=== PATIENT | female | born 1955 | race Two or more races ===

== ENCOUNTER → 2021-08-15 12:36 | Outpatient (CLI) | payer MEDICARE, MEDICAID, SELFPAY | PROVIDERS: Visit Provider Ophthalmology | DX: Z01.812 Encounter for preprocedural laboratory examination (principal); Z11.52 Encounter for screening for COVID-19 | CPT/HCPCS: C9803; U0003; U0005 ==

== ENCOUNTER 2021-08-16 10:43 | Day surgery (SDC) | payer MEDICARE, MEDICAID, SELFPAY ==
[2021-08-15 11:42] VITALS: BMI 53.1
[2021-08-16] VITALS (8 sets, daily range): BP systolic 142–204; BP diastolic 77–93; PULSE 55–88; RESP 16–18; TEMP 36.3–36.6; O2SAT 100
[2022-06-01 10:55] LABS: POC Glucose,Bedside 85 (70-110)
== END 2021-08-16 13:26 | disposition home or self-care (01) ==
LOC: OR 10:49
PROVIDERS: PCP Family Medicine; Visit Provider Ophthalmology
DX: H25.819 Combined forms of age-related cataract, unspecified eye (principal); H25.89 Other age-related cataract; H02.834 Dermatochalasis of left upper eyelid; H02.831 Dermatochalasis of right upper eyelid; E11.9 Type 2 diabetes mellitus without complications; I10 Essential (primary) hypertension; Z88.1 Allergy status to other antibiotic agents; Z88.5 Allergy status to narcotic agent; Z88.9 Allergy status to unspecified drugs, medicaments and biological substances
CPT/HCPCS: 66982; 82962; V2632

== ENCOUNTER → 2021-09-12 13:02 | Outpatient (CLI) | payer MEDICARE, MEDICAID, SELFPAY | PROVIDERS: Visit Provider Ophthalmology | DX: Z01.812 Encounter for preprocedural laboratory examination (principal); Z11.52 Encounter for screening for COVID-19 | CPT/HCPCS: C9803; U0003; U0005 ==

== ENCOUNTER 2021-09-13 07:56 | Day surgery (SDC) | payer MEDICARE, MEDICAID, SELFPAY ==
[2021-09-07 14:26] VITALS: BMI 55.7
[2021-09-13] VITALS (8 sets, daily range): BP systolic 119–188; BP diastolic 60–86; PULSE 67–78; RESP 18; TEMP 36.2–36.3; O2SAT 99–100
[2022-06-01 10:56] LABS: POC Glucose,Bedside 89 (70-110)
== END 2021-09-13 10:00 | disposition home or self-care (01) ==
LOC: OR 07:57
PROVIDERS: PCP Family Medicine; Visit Provider Ophthalmology
DX: E11.9 Type 2 diabetes mellitus without complications; H02.831 Dermatochalasis of right upper eyelid; H02.834 Dermatochalasis of left upper eyelid; F41.9 Anxiety disorder, unspecified; M19.90 Unspecified osteoarthritis, unspecified site; J45.909 Unspecified asthma, uncomplicated; F32.A Depression, unspecified; Z82.3 Family history of stroke; Z80.9 Family history of malignant neoplasm, unspecified; Z83.3 Family history of diabetes mellitus; Z82.49 Family history of ischemic heart disease and other diseases of the circulatory system; H25.812 Combined forms of age-related cataract, left eye
CPT/HCPCS: 66984; 82962; V2632

== ENCOUNTER 2022-07-08 05:43 | Emergency (ER) | payer MEDICARE, MEDICAID, SELFPAY ==
[2022-07-08] VITALS (9 sets, daily range): BP systolic 143–178; BP diastolic 40–128; PULSE 75–86; RESP 15–22; TEMP 36.9–37.2; O2SAT 97–100; BMI 42.5
--- NOTE | 2022-07-08 05:42 | ECG_ITS ---
APPROVED REPORT Exam: Resting ECG HR:85 bpm ECG Measurements Heart Rate 85 AXES WI 148 P -38 QRSd 92 QRS 25 QT 390 T 96 QTc 432 Conclusion SINUS RHYTHM NONSPECIFIC ST & T-WAVE ABNORMALITY ABNORMAL ECG UNCONFIRMED REPORT Electronically signed by : Clifford Hernandez MD 07/09/2022 08:53:56
--- NOTE | 2022-07-08 05:59 | HMH.EDGENADL ---
Discharge Plan Disposition Patient Disposition: Home, Self-Care Condition: Good Prescriptions Prescriptions: No Action atorvastatin 40 MG tablet 40 mg PO HS primidone 50 MG tablet 150 mg PO BID diclofenac sodium 100 GM gel 100 gm TP QID ofloxacin 5 ML bottle 5 ml OP QID hydrochlorothiazide 50 MG tablet 50 mg PO BID ciprofloxacin HCl 250 MG tablet 250 mg PO BID omeprazole 40 MG capsule,delayed release(DR/EC) 40 mg PO BID propranolol 10 MG tablet 10 mg PO DAILY dicyclomine 20 MG tablet 20 mg PO TID mupirocin calcium 15 GM cream 1 applicatio TP BID mirabegron 50 MG tablet extended release 24 hr 50 mg PO DAILY fluticasone furoate 200 MCG blister with device 200 mcg IH DAILY dulaglutide 0.75 MG/0.5 ML pen injector 0.75 mg SQ WEEKLY Referrals Follow up/Referrals: Provider,Referral, MD [Primary Care Provider] - See instructions Activity Restrictions/Add. Instructions Additional Instructions/Restrictions: Take Aleve twice a day for pain. Additional instructions for ABDOMINAL PAIN: See your physician as soon as possible for further evaluation. Return immediately if worsening abdominal pain, vomiting, shortness of breath, fever, vomiting of blood or abdominal distention. Clinical Impressions Clinical Impression: Abdominal pain, GERD (gastroesophageal reflux disease), Epiploic appendagitis Instructions Patient Instructions: DI for Acute Abdominal Pain Discharge ED Provider: Lane Jimenez General Adult HPI <Lane Jimenez DO - Last Filed: 07/08/22 07:57> General Chief complaint: Abdominal Pain Stated complaint: Indigestion Time Seen by Provider: 07/08/22 05:45 Mode of Arrival: EMS Source of Information: Patient and EMS Limitations: No Limitations History of Present Illness HPI narrative: 67yo F presents to the emergency department via EMS secondary to abdominal pain and belching. Patient reports she ate spaghetti and chili for dinner last night. Reports GI cocktail usually improves her symptoms. Patient reports feeling well prior to eating dinner last night. Related Data Home Medications Medication Instructions Recorded Confirmed atorvastatin 40 mg tablet 40 mg PO HS Cholesterol 08/16/21 07/08/22 ciprofloxacin HCl 250 mg tablet 250 mg PO BID Infection 08/16/21 07/08/22 diclofenac sodium 3 % topical gel 100 gm TP QID Pain 08/16/21 07/08/22 dicyclomine 20 mg tablet 20 mg PO TID IBS 08/16/21 07/08/22 dulaglutide 0.75 mg/0.5 mL 0.75 mg SQ WEEKLY Diabetes 08/16/21 07/08/22 subcutaneous pen injector fluticasone furoate 200 200 mcg IH DAILY Asthma 08/16/21 07/08/22 mcg/actuation blister powder for inhalation hydrochlorothiazide 50 mg tablet 50 mg PO BID Fluid 08/16/21 07/08/22 mirabegron 50 mg tablet,extended 50 mg PO DAILY bladder spasms 08/16/21 07/08/22 release 24 hr mupirocin calcium 2 % topical cream 1 applicatio TP BID Infection 08/16/21 07/08/22 ofloxacin 0.3 % eye drops 5 ml OP QID vision 08/16/21 07/08/22 omeprazole 40 mg capsule,delayed 40 mg PO BID GERD 08/16/21 07/08/22 release primidone 50 mg tablet 150 mg PO BID Infection 08/16/21 07/08/22 propranolol 10 mg tablet 10 mg PO DAILY blood pressure 08/16/21 07/08/22 Allergies Allergy/AdvReac Type Severity Reaction Status Date / Time silver Allergy Mild Verified 09/13/21 08:09 [From Tegaderm AG Mesh] adhesive tape Allergy Rash Verified 09/13/21 08:34 AMOXICILLIN Allergy Unknown NA-NAUSEA Uncoded 08/21/17 15:37 From AUGMENTIN Allergy Unknown NA-NAUSEA Uncoded 08/21/17 15:37 MORPHINE Allergy Unknown NA-NAUSEA Uncoded 08/21/17 15:37 [facility] <Lane Jimenez DO - Last Filed: 07/08/22 07:57> [facility] Social History Smoking Status: Never smoker alcohol intake: never current occupational status: retired Travel in the last 8 weeks: None household members: family housing: house caffeine:
[2022-07-08 06:26] LABS: Basophils # 0.1 K/mm3 (0-0.2); Basophils % 0.8 % (0.1-2.0); Eosinophils # 0.3 K/mm3 (0.0-0.4); Eosinophils % 2.3 % (0.1-12.0); Hematocrit 34.6 % (37.0-47.0); Lymphocytes # 1.9 K/mm3 (0.7-4.5); Lymphocytes % 14.1 % (10-50); Mean Corpuscular HGB Conc 31.8 g/dL (31.8-35.4); Mean Corpuscular Hemoglobin 29.7 pg (27.0-31.2); Mean Corpuscular Volume 93.4 fl (81-99); Mean Platelet Volume 7.5 fl (7.4-10.4); Monocytes # 0.9 K/mm3 (0.1-1.0); Neutrophils % 75.8 % (37.0-80.0); Platelet Count 483 K/mm3 (142-424); Red Blood Count 3.71 M/mm3 (4.20-5.40); Red Cell Distribution Width 13.4 % (11.5-17.5); White Blood Count 13.2 K/mm3 (4.8-10.8)
[2022-07-08 06:34] LABS: Lipase 39 U/L (23-300)
[2022-07-08 06:36] LABS: Alanine Aminotransferase 15 U/L (12-78); Albumin Level 3.9 g/dl (3.5-5.0); Albumin/Globulin Ratio 0.9 (1.1-1.8); Alkaline Phosphatase 131 U/L (38-126); Anion Gap 16.5 mEq/L (5-15); Aspartate Amino Transferase 29 U/L (14-36); Bilirubin,Total 0.6 mg/dl (0.2-1.3); Blood Urea Nitrogen 25 mg/dl (7-17); Calcium 9.4 mg/dl (8.4-10.2); Carbon Dioxide 26 mmol/L (22.0-30.0); Chloride 94 mmol/L (98-107); Creatinine Clearance Estimated 33 mL/min (50-200); Estimated Glomerular Filt Rate 38 ml/min (>60); GFR (African American) 46 ML/MIN (>60); Globulin 4.4 g/dL (1.3-3.2); Glucose 123 mg/dl (74-100); Potassium 4.5 mmoL/L (3.5-5.1); Sodium 132 mmol/L (136-145); Total Protein,Serum 8.3 g/dl (6.3-8.2)
--- NOTE | 2022-07-08 06:42 | CT_ITS ---
PROCEDURE INFORMATION: Exam: CT Abdomen And Pelvis Without Contrast Exam date and time: 07/08/2022 6:48 AM Age: 67 years old Clinical indication: Nausea and vomiting; Additional info: Pain, nausea/vomiting TECHNIQUE: Imaging protocol: Computed tomography of the abdomen and pelvis without contrast. Radiation optimization: All CT scans at this facility use at least one of these dose optimization techniques: automated exposure control; mA and/or kV adjustment per patient size (includes targeted exams where dose is matched to clinical indication); or iterative reconstruction. COMPARISON: No relevant prior studies available. FINDINGS: Diaphragm: Moderate hiatal hernia. Liver: Normal. No mass. Gallbladder and bile ducts: Cholecystectomy. Pancreas: Normal. No ductal dilation. Spleen: Normal. No splenomegaly. Adrenal glands: Normal. No mass. Kidneys and ureters: Normal. No hydronephrosis. Stomach and bowel: Colonic diverticulosis without evidence of diverticulitis. No bowel obstruction. Small rounded area of inflammation adjacent to the sigmoid colon may reflect a small area of epiploic appendagitis. Appendix: No evidence of appendicitis. Intraperitoneal space: Unremarkable. No free air. No significant fluid collection. Vasculature: Mild burden of atherosclerotic plaque in the abdominal aorta and branch vessels. No aneurysm. Lymph nodes: Unremarkable. No enlarged lymph nodes. Urinary bladder: Single locule of gas in the bladder may relate to recent instrumentation. Reproductive: Unremarkable as visualized. Bones/joints: Unremarkable. No acute fracture. Soft tissues: Unremarkable. IMPRESSION: There may be a small focus of epiploic appendagitis adjacent to the sigmoid colon. Otherwise, no acute findings.
[2022-07-08 06:47] LABS: Troponin I < 0.01 ng/ml (0.00-0.034)
--- NOTE | 2022-07-08 08:50 | PC.NURSE ---
called radiology for update ct scan report. Tech will fu with radiologist
--- NOTE | 2022-07-08 09:26 | PC.NURSE ---
at the bedside speaking to pt
--- NOTE | 2022-07-08 09:27 | PC.NURSE ---
dr. torres at bedside
== END 2022-07-08 09:58 | disposition home or self-care (01) ==
PROVIDERS: Emergency Provider Family Medicine
DX: K63.89 Other specified diseases of intestine (principal); K21.9 Gastro-esophageal reflux disease without esophagitis; Z79.899 Other long term (current) drug therapy; Z88.1 Allergy status to other antibiotic agents; Z88.5 Allergy status to narcotic agent; Z88.9 Allergy status to unspecified drugs, medicaments and biological substances
CPT/HCPCS: 74176; 80053; 83690; 84484; 85025; 93005; 99284

== ENCOUNTER 2022-08-28 12:59 | Emergency (ER) | payer MEDICARE, MEDICAID, SELFPAY ==
[2022-08-28] VITALS (12 sets, daily range): BP systolic 129–172; BP diastolic 36–81; PULSE 77–89; RESP 18–20; TEMP 36.8–37.1; O2SAT 98–100; BMI 50.8
--- NOTE | 2022-08-28 13:45 | CT_ITS ---
PROCEDURE INFORMATION: Exam: CTA Head With Contrast, Arteriography Exam date and time: 08/28/2022 3:30 PM Age: 67 years old Clinical indication: Stroke-like symptoms; Lt upper extremity weakness; Additional info: Left arm numbness TECHNIQUE: Imaging protocol: Computed tomographic angiography of the head with contrast. Exam focused on the arteries. 3D rendering (Not supervised by radiologist): MIP and/or 3D reconstructed images were created by the technologist. Radiation optimization: All CT scans at this facility use at least one of these dose optimization techniques: automated exposure control; mA and/or kV adjustment per patient size (includes targeted exams where dose is matched to clinical indication); or iterative reconstruction. Contrast material: ISOVUE 370; Contrast volume: 100 ml; Contrast route: INTRAVENOUS (IV); COMPARISON: CT HEAD/BRAIN WO CON 08/28/2022 2:30 PM FINDINGS: ANTERIOR CIRCULATION: Right internal carotid artery: Intracranial segment is patent with no significant stenosis. No aneurysm. Right middle cerebral artery: No occlusion or significant stenosis. No aneurysm. Right anterior cerebral artery: No occlusion or significant stenosis. No aneurysm. Left internal carotid artery: Intracranial segment is patent with no significant stenosis. No aneurysm. Left middle cerebral artery: No occlusion or significant stenosis. No aneurysm. Left anterior cerebral artery: No occlusion or significant stenosis. No aneurysm. POSTERIOR CIRCULATION: Right vertebral artery: No occlusion or significant stenosis. No aneurysm. Left vertebral artery: No occlusion or significant stenosis. No aneurysm. Basilar artery: No occlusion or significant stenosis. No aneurysm. Right posterior cerebral artery: Severe focal stenosis involves the proximal P2 segment of the right posterior cerebral artery. Left posterior cerebral artery: Severe focal stenosis involves the P1/P2 junction of the left posterior cerebral artery Brain: No definite mass, mass effect, or midline shift. Cerebral ventricles: No ventriculomegaly. Bones/joints: Unremarkable. No acute fracture. Soft tissues: Unremarkable. 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
--- NOTE | 2022-08-28 13:45 | CT_ITS ---
PROCEDURE INFORMATION: Exam: CT Head Without Contrast Exam date and time: 08/28/2022 2:30 PM Age: 67 years old Clinical indication: Stroke-like symptoms; Lt upper extremity weakness; Additional info: Left arm numbness-- will do angio once labs and iv are done TECHNIQUE: Imaging protocol: Computed tomography of the head without contrast. Radiation optimization: All CT scans at this facility use at least one of these dose optimization techniques: automated exposure control; mA and/or kV adjustment per patient size (includes targeted exams where dose is matched to clinical indication); or iterative reconstruction. Other technique: STROKE PROTOCOL was implemented. COMPARISON: No relevant prior studies available. FINDINGS: Brain: There is no acute intracranial hemorrhage or mass effect. Mild diffuse volume loss is within the range of normal for patient age. There are small vessel ischemic changes within the periventricular and subcortical white matter, but the normal blackman/white matter delineation is maintained. Chronic lacunar infarct involves the left lentiform nucleus. Cerebral ventricles: No ventriculomegaly. Paranasal sinuses: Visualized sinuses are unremarkable. No fluid levels. Mastoid air cells: Visualized mastoid air cells are well aerated. Bones/joints: Unremarkable. No acute fracture. Soft tissues: Unremarkable. IMPRESSION: No acute intracranial hemorrhage or edema. ASSESSMENT: ASPECTS ([place] Stroke Program Early CT Score) is 10.
--- NOTE | 2022-08-28 13:45 | CT_ITS ---
PROCEDURE INFORMATION: Exam: CTA Neck With Contrast Exam date and time: 08/28/2022 3:30 PM Age: 67 years old Clinical indication: Stroke-like symptoms; RT upper extremity weakness; Additional info: Left arm numbness TECHNIQUE: Imaging protocol: Computed tomographic angiography of the neck with contrast. 3D rendering (Not supervised by radiologist): MIP and/or 3D reconstructed images were created by the technologist. Radiation optimization: All CT scans at this facility use at least one of these dose optimization techniques: automated exposure control; mA and/or kV adjustment per patient size (includes targeted exams where dose is matched to clinical indication); or iterative reconstruction. Contrast material: ISOVUE; Contrast volume: 100 ml; Contrast route: INTRAVENOUS (IV); COMPARISON: CT HEAD/BRAIN WO CON 08/28/2022 2:30 PM FINDINGS: Right common carotid artery: No stenosis. No dissection or occlusion. Right internal carotid artery: No stenosis of the extracranial segment. No dissection or occlusion. Right external carotid artery: No occlusion or stenosis of the origin. Left common carotid artery: No stenosis. No dissection or occlusion. Left internal carotid artery: No stenosis of the extracranial segment. No dissection or occlusion. Left external carotid artery: No occlusion or stenosis of the origin. Right vertebral artery: No stenosis. No dissection or occlusion. Left vertebral artery: No stenosis. No dissection or occlusion. Soft tissues: Normal. No significant soft tissue swelling. Bones/joints: No acute fracture. IMPRESSION: No stenosis or occlusion. REFERENCES: NASCET CRITERIA. The degree of stenosis in the cervical segment of the internal carotid artery is based on NASCET criteria. Normal is no stenosis. Mild is less than 50% stenosis. Moderate is 50-69% stenosis. Severe is 70% to 99% stenosis. Total occlusion is no detectable patent lumen.
--- NOTE | 2022-08-28 14:15 | PC.NURSE ---
RADIOLOGY NOTIFIED OF HEAD CT
--- NOTE | 2022-08-28 14:42 | HMH.ITSTN ---
I went to get patient on ER request-- Dr frey protocol for angio override reguardless of labs I agreed but IV is in wrist and I advised him and nurse that I need AC or higher for an angio study-- will call when ready I did the CT head without
[2022-08-28 15:07] LABS: Chloride 98 mmol/L (98-107); Potassium 3.6 mmoL/L (3.5-5.1); Sodium 133 mmol/L (136-145)
[2022-08-28 15:08] LABS: Basophils # 0.1 K/mm3 (0-0.2); Basophils % 0.9 % (0.1-2.0); Eosinophils # 0.4 K/mm3 (0.0-0.4); Eosinophils % 5.3 % (0.1-12.0); Hematocrit 32.1 % (37.0-47.0); Hemoglobin 10.9 g/dL (12.2-16.2); Lymphocytes # 1.4 K/mm3 (0.7-4.5); Lymphocytes % 19.6 % (10-50); Mean Corpuscular HGB Conc 34.1 g/dL (31.8-35.4); Mean Corpuscular Hemoglobin 29.9 pg (27.0-31.2); Mean Corpuscular Volume 87.6 fl (81-99); Mean Platelet Volume 7.4 fl (7.4-10.4); Monocytes # 0.5 K/mm3 (0.1-1.0); Monocytes % 7.5 % (1.7-9.3); Neutrophils # 4.8 K/mm3 (1.8-7.8); Neutrophils % 66.8 % (37.0-80.0); Platelet Count 450 K/mm3 (142-424); Red Blood Count 3.66 M/mm3 (4.20-5.40); Red Cell Distribution Width 14.7 % (11.5-17.5); White Blood Count 7.2 K/mm3 (4.8-10.8)
--- NOTE | 2022-08-28 15:08 | PC.NURSE ---
MINA OLSON at
[2022-08-28 15:09] LABS: Blood Urea Nitrogen 16 mg/dl (7-17); Creatinine Clearance Estimated 34 mL/min (50-200); Estimated Glomerular Filt Rate 38 ml/min (>60); GFR (African American) 46 ML/MIN (>60)
[2022-08-28 15:10] LABS: Alanine Aminotransferase 16 U/L (12-78); Albumin Level 3.2 g/dl (3.5-5.0); Albumin/Globulin Ratio 0.9 (1.1-1.8); Alkaline Phosphatase 124 U/L (38-126); Anion Gap 12.6 mEq/L (5-15); Aspartate Amino Transferase 31 U/L (14-36); Bilirubin,Total 0.3 mg/dl (0.2-1.3); Calcium 8.6 mg/dl (8.4-10.2); Carbon Dioxide 26 mmol/L (22.0-30.0); Globulin 3.5 g/dL (1.3-3.2); Glucose 112 mg/dl (74-100); Total Protein,Serum 6.7 g/dl (6.3-8.2)
--- NOTE | 2022-08-28 15:15 | PC.NURSE ---
1515 ED MD AT BEDSIDE TO EVALUATE PT AND PLACE US GUIDED IV. PT REPORTS ABDOMINAL PAIN AND CONSTIPATION. LEFT EYE SHUT, PT REPORTS PREVIOUS STROKE FROM B/P MED YEARS AGO PT IS ABLE TO OPEN EYE, FOLLOW COMMANDS. LEFT EYE AT BASELINE. EYES DOES HAVE DISCHARGE.
--- NOTE | 2022-08-28 15:18 | PC.NURSE ---
pt to CT via stretcher with system technologist
--- NOTE | 2022-08-28 15:20 | CT_ITS ---
PROCEDURE INFORMATION: Exam: CT Abdomen And Pelvis With Contrast Exam date and time: 08/28/2022 3:34 PM Age: 67 years old Clinical indication: Constipation; Additional info: No bm 5 days, still passing flatus TECHNIQUE: Imaging protocol: Computed tomography of the abdomen and pelvis with contrast. Radiation optimization: All CT scans at this facility use at least one of these dose optimization techniques: automated exposure control; mA and/or kV adjustment per patient size (includes targeted exams where dose is matched to clinical indication); or iterative reconstruction. Contrast material: ISOVUE; Contrast volume: 50 ml; Contrast route: IV; COMPARISON: CT ABDOMEN PELVIS WO CON 07/08/2022 6:48 AM FINDINGS: Lungs: Scattered areas of peribronchial ground-glass opacity in the included portion of the right upper, middle, and lower lobes and scattered airspace opacities in the dependent right lower lobe. Mild dependent left lower lobe opacities. Heart: Included portion of the heart is unremarkable. Aortic valvular calcifications. Coronary arteries: Moderate/severe coronary artery calcifications. Liver: Normal. No mass. Gallbladder and bile ducts: Status post cholecystectomy. No biliary ductal dilatation. No calcified gallstones. Pancreas: Significant interval increase in pancreatic tissue predominantly of the pancreatic head. No ductal dilatation. No discrete lesion or surrounding inflammatory changes or fluid demonstrated. Spleen: Small calcified granuloma. Spleen is otherwise unremarkable. Adrenal glands: Adrenal glands are normal. No mass. Kidneys and ureters: Kidneys are normal. No renal stones seen, contrast within the urinary collecting system limits evaluation for small nonobstructing stones. No hydronephrosis or hydroureter. Stomach and bowel: No acute bowel abnormality. [id number] hiatal hernia with approximately 50% of the stomach above the diaphragm similar to prior. Sigmoid colonic diverticulosis. Enteric contrast is noted within the colon. No bowel dilatation or bowel obstruction. Appendix: No evidence of appendicitis. Intraperitoneal space: No free air. No significant fluid collection. Vasculature: Abdominal aortic atherosclerotic disease with no aneurysm or evidence of acute abnormality. Lymph nodes: No enlarged lymph nodes. Urinary bladder: Urinary bladder is unremarkable for degree of distention. Reproductive: Unremarkable as visualized. Bones/joints: No acute or suspicious osseous lesions. Multilevel degenerative changes of the included spine are again demonstrated. Soft tissues: Unremarkable. IMPRESSION: 1. Scattered opacities in the included portion of the right mid/lower lung most compatible with infectious/inflammatory process. Mild dependent left basilar opacities which could be due to atelectasis versus infection. 2. Colonic diverticulosis. No acute bowel abnormality. Scattered stool within nondilated colon. 3. Significant interval increase in the degree of pancreatic tissue at the pancreatic head as compared to CT from 07/08/2022 with pancreas otherwise unremarkable. There is no ductal dilatation. This is of indeterminate significance, could represent pancreatitis, recommend clinical correlation. Otherwise, recommend nonemergent MR pancreas with and without contrast to further evaluate. 4. Aortic atherosclerosis with no AAA or acute abnormality. Moderate/severe coronary artery calcifications. 5. Stable moderate to large hiatal hernia with approximately 50% of the stomach above the level of the diaphragm. The findings were verbally communicated via telephone conference with Lamonte Hope at 5:4
--- NOTE | 2022-08-28 15:20 | PC.NURSE ---
RN AT BEDSIDE FOR RECTAL EXAM
--- NOTE | 2022-08-28 15:40 | HMH.ITSTN ---
new IV obtained in AC joint// GFR=[address] he wants contrast given for both head and neck and also abd/pel with contrast -- he overrode the contrast and signed form
--- NOTE | 2022-08-28 15:40 | HMH.EDGENADL ---
Discharge Plan Disposition Patient Disposition: Home, Self-Care Condition: Good Chief Complaint: Extremity Problem,Nontraumatic Prescriptions Prescriptions: No Action atorvastatin 40 MG tablet 40 mg PO HS primidone 50 MG tablet 150 mg PO BID diclofenac sodium 100 GM gel 100 gm TP QID ofloxacin 5 ML bottle 5 ml OP QID hydrochlorothiazide 50 MG tablet 50 mg PO BID ciprofloxacin HCl 250 MG tablet 250 mg PO BID omeprazole 40 MG capsule,delayed release(DR/EC) 40 mg PO BID propranolol 10 MG tablet 10 mg PO DAILY dicyclomine 20 MG tablet 20 mg PO TID mupirocin calcium 15 GM cream 1 applicatio TP BID mirabegron 50 MG tablet extended release 24 hr 50 mg PO DAILY fluticasone furoate 200 MCG blister with device 200 mcg IH DAILY dulaglutide 0.75 MG/0.5 ML pen injector 0.75 mg SQ WEEKLY Referrals Follow up/Referrals: Darek Kinsey [Primary Care Provider] - See instructions Wayne Rodriguez MD [Staff Physician] - See instructions Activity Restrictions/Add. Instructions Additional Instructions/Restrictions: At this time it was felt you are safe to be discharged home. If new or worsening symptoms please do not hesitate to return for continued evaluation. Please follow-up with your family doctor for continued surveillance of your pancreas. Please maintain your follow-up with GI as discussed. Please call and schedule an appointment with general surgery for evaluation of your hemorrhoid. Clinical Impressions Clinical Impression: Hernia, hiatal, Constipation, Hemorrhoid Discharge ED Provider: Lamonte Hope General Adult HPI General Chief complaint: Extremity Problem,Nontraumatic Stated complaint: Lt arm pain Time Seen by Provider: 08/28/22 15:41 Mode of Arrival: EMS Limitations: No Limitations Description of Symptoms (Recalled from ER Triage Doc. by RN): PT BROUGHT IN VIA EMS FOR LEFT ARM NUMBNESS THAT BEGAN THIS AM 0800. 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 NO DEFICTS NOTED History of Present Illness HPI narrative: Patient is a 67-year-old female with past medical history of hypertension, diabetes, chronic left-sided visual changes and chronic left-sided eye droop status post reported previous stroke from blood pressure medication who presents to the emergency department for multiple complaints. Patient had tingling in her left arm which is poorly characterized for which she states she may have laid on her arm. Upon my evaluation patient states that it has largely subsided, denies weakness in the arms or legs, denies difficulty talking, acute visual changes. Patient is most concerned about her constipation, last bowel movement 5 days ago, as well as her hemorrhoid which is causing her significant pain. Patient states she has a past medical history of irritable bowel syndrome, constipation type. Patient is still passing flatus, denies vomiting, decreased p.o. intake and urine output. No other acute complaints at this time. Related Data Home Medications Medication Instructions Recorded Confirmed atorvastatin 40 mg tablet 40 mg PO HS Cholesterol 08/16/21 07/08/22 ciprofloxacin HCl 250 mg tablet 250 mg PO BID Infection 08/16/21 07/08/22 diclofenac sodium 3 % topical gel 100 gm TP QID Pain 08/16/21 07/08/22 dicyclomine 20 mg tablet 20 mg PO TID IBS 08/16/21 07/08/22 dulaglutide 0.75 mg/0.5 mL 0.75 mg SQ WEEKLY Diabetes 08/16/21 07/08/22 subcutaneous pen injector fluticasone furoate 200 200 mcg IH DAILY Asthma 08/16/21 07/08/22 mcg/actuation blister powder for inhalation hydrochlorothiazide 50 mg tablet 50 mg PO BID Fluid 08/16/21 07/08/22 mirabegron 50 mg tablet,extended 50 mg PO DAILY bladder spasms 08/16/21 07/08/22 release 24 hr mupirocin calcium 2 % topical cream 1 applicatio TP BID Infection 08/16/21 07/08/22 ofloxacin 0.3 % eye drops 5 ml OP QID vision 08/16/21 07/08/22 omeprazole 40 mg capsule,delayed 40 mg PO BID GERD 08/16/21
[2022-08-28 15:52] LABS: Coronavirus 19, PCR Not Detected (NotDetected); Influenza A, PCR Not Detected (NotDetected); Influenza B, PCR Not Detected (NotDetected)
--- NOTE | 2022-08-28 16:31 | PC.NURSE ---
checked on patient, she reports no needs at this time. she is resting on ed stretcher and lights turned off
--- NOTE | 2022-08-28 16:37 | PC.NURSE ---
MINA OLSON speaking with RENY at this time
--- NOTE | 2022-08-28 17:46 | PC.NURSE ---
NA OLSON SPEAKING WITH RENY
--- NOTE | 2022-08-28 18:01 | PC.NURSE ---
[facility] ER MD notified. PO challenging patient at this time
--- NOTE | 2022-08-28 18:04 | PC.NURSE ---
Re-adjusted patient in the bed
[2022-08-28 18:06] LABS: POC Glucose,Bedside 94 (70-110)
--- NOTE | 2022-08-28 18:06 | PC.NURSE ---
Called and spoke with daughter Tori regarding a ride home and she reports she lives too far away but she will call her sister and give us a call back
--- NOTE | 2022-08-28 18:21 | PC.NURSE ---
ROUNDED ON PT AT THIS TIME, SOCKS PROVIDED. TOLERATING PO INTAKE AT THIS TIME
--- NOTE | 2022-08-28 20:14 | PC.NURSE ---
at bed side
== END 2022-08-28 20:24 | disposition home or self-care (01) ==
PROVIDERS: Emergency Provider Emergency Medicine; PCP Family Medicine
DX: K59.00 Constipation, unspecified (principal); R11.2 Nausea with vomiting, unspecified; R20.2 Paresthesia of skin; R29.810 Facial weakness; I10 Essential (primary) hypertension; K57.90 Diverticulosis of intestine, part unspecified, without perforation or abscess without bleeding; K44.9 Diaphragmatic hernia without obstruction or gangrene; E11.9 Type 2 diabetes mellitus without complications; Z20.822 Contact with and (suspected) exposure to COVID-19; Z79.1 Long term (current) use of non-steroidal anti-inflammatories (NSAID); Z79.899 Other long term (current) drug therapy; Z86.73 Personal history of transient ischemic attack (TIA), and cerebral infarction without residual deficits; Z88.0 Allergy status to penicillin; Z88.1 Allergy status to other antibiotic agents; Z88.3 Allergy status to other anti-infective agents; Z88.5 Allergy status to narcotic agent; Z91.048 Other nonmedicinal substance allergy status
CPT/HCPCS: 70450; 70496; 70498; 74177; 80053; 82962; 85025; 96361; 96374; 96375; 99285; C9803; J2405; Q9967; U0003; U0005

== ENCOUNTER 2022-10-29 19:24 | Emergency (ER) | payer MEDICARE, MEDICAID, SELFPAY ==
[2022-10-29] VITALS (8 sets, daily range): BP systolic 148–168; BP diastolic 69–84; PULSE 63–85; RESP 12–20; TEMP 36.8; O2SAT 97–98; BMI 41.1
--- NOTE | 2022-10-29 19:41 | ECG_ITS ---
APPROVED REPORT Exam: Resting ECG HR:82 bpm ECG Measurements Heart Rate 82 AXES HI 128 P -37 QRSd 89 QRS 18 QT 384 T 248 QTc [address] DEVIATION AND MODERATE T-WAVE ABNORMALITY, CONSIDER ANTEROLATERAL ISCHEMIA [-0.1+ mV T-WAVE IN V3-V6] ST DEVIATION AND MODERATE T-WAVE ABNORMALITY, CONSIDER INFERIOR ISCHEMIA [-0.1+ mV T-WAVE IN II/aVF] ABNORMAL ECG UNCONFIRMED REPORT Electronically signed by : Clifford Hernandez MD 10/30/2022 19:24:17
--- NOTE | 2022-10-29 19:41 | XR_ITS ---
PROCEDURE INFORMATION: Exam: XR Chest Exam date and time: 10/29/2022 8:02 PM Age: 67 years old Clinical indication: Sternal or substernal pain; Additional info: Cp TECHNIQUE: Imaging protocol: Radiologic exam of the chest. Views: 1 view. COMPARISON: CT ABDOMEN PELVIS W CON 08/28/2022 3:34 PM FINDINGS: Lungs: Pulmonary vasculature grossly normal. No gross pulmonary infiltrates or edema pattern. Granulomatous calcifications in the left base. Pleural spaces: No pleural effusion. No pneumothorax. Heart/Mediastinum: Heart size normal. Moderate-sized hiatal hernia is similar to prior CT 08/28/2022. No tracheal/mediastinal shift. Vasculature: Moderate aortic ectasia/tortuosity. Bones/joints: No acute osseous abnormalities are identified. IMPRESSION: 1. No acute thoracic process. 2. Moderate-sized hiatal hernia.
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
--- NOTE | 2022-10-29 20:06 | HMH.EDCP ---
Discharge Plan Disposition Patient Disposition: Home, Self-Care Chief Complaint: Chest Pain Prescriptions Prescriptions: No Action atorvastatin 40 MG tablet 40 mg PO HS primidone 50 MG tablet 150 mg PO BID diclofenac sodium 100 GM gel 100 gm TP QID ofloxacin 5 ML bottle 5 ml OP QID hydrochlorothiazide 50 MG tablet 50 mg PO BID ciprofloxacin HCl 250 MG tablet 250 mg PO BID omeprazole 40 MG capsule,delayed release(DR/EC) 40 mg PO BID propranolol 10 MG tablet 10 mg PO DAILY dicyclomine 20 MG tablet 20 mg PO TID mupirocin calcium 15 GM cream 1 applicatio TP BID mirabegron 50 MG tablet extended release 24 hr 50 mg PO DAILY fluticasone furoate 200 MCG blister with device 200 mcg IH DAILY dulaglutide 0.75 MG/0.5 ML pen injector 0.75 mg SQ WEEKLY Referrals Follow up/Referrals: Darek Kinsey [Primary Care Provider] - See instructions Clinical Impressions Clinical Impression: GERD (gastroesophageal reflux disease), Atypical chest pain, Acute mastitis of left breast, Chronic renal insufficiency Instructions Patient Instructions: DI for Atypical Chest Pain Discharge ED Provider: Sandor (ED)Evelio Chest Pain HPI General Chief Complaint: Chest Pain Stated Complaint: Gas, possible UTI,earlier Chest Pain- resolved now Time Seen by Provider: 10/29/22 20:06 Mode of Arrival: EMS Source of Information: Patient, EMS and Medical Record Limitations: No Limitations Description of Symptoms (Recalled from ER Triage Doc. by RN): Pt arrives via ems c various complaints. C/O left sided arm numbness, states its chronic but worse than normal and has been going on all day. Also c/o left sided nipple pain due to a suspected infected nipple, complains of frequent belching and indigestion, states she forgot to take her indigestion medicine today, and states that she has a uti for which she was treated by her pcp a couple weeks ago with antibiotics but she stopped taking them because they made her nauseaus. History of Present Illness HPI narrative: pt with several issues which include possible infected lt nipple - epigastric pain ALICE Score for Non-Stemi Age of Patient: 60-69 years old Heart Rate: 70-89 bpm Systolic Blood Pressure: 160-199 mmHg Serum Creatinine: 1.60-1.99 mg/dl CHF Killip Class: I-No CHF Other Risk Factors: None Non-Stemi Risk Score: 90 Risk Stratification: 1-108 = Low Risk Related Data Home Medications Medication Instructions Recorded Confirmed atorvastatin 40 mg tablet 40 mg PO HS Cholesterol 08/16/21 10/29/22 ciprofloxacin HCl 250 mg tablet 250 mg PO BID Infection 08/16/21 10/29/22 diclofenac sodium 3 % topical gel 100 gm TP QID Pain 08/16/21 10/29/22 dicyclomine 20 mg tablet 20 mg PO TID IBS 08/16/21 10/29/22 dulaglutide 0.75 mg/0.5 mL 0.75 mg SQ WEEKLY Diabetes 08/16/21 10/29/22 subcutaneous pen injector fluticasone furoate 200 200 mcg IH DAILY Asthma 08/16/21 10/29/22 mcg/actuation blister powder for inhalation hydrochlorothiazide 50 mg tablet 50 mg PO BID Fluid 08/16/21 10/29/22 mirabegron 50 mg tablet,extended 50 mg PO DAILY bladder spasms 08/16/21 10/29/22 release 24 hr mupirocin calcium 2 % topical cream 1 applicatio TP BID Infection 08/16/21 10/29/22 ofloxacin 0.3 % eye drops 5 ml OP QID vision 08/16/21 10/29/22 omeprazole 40 mg capsule,delayed 40 mg PO BID GERD 08/16/21 10/29/22 release primidone 50 mg tablet 150 mg PO BID Infection 08/16/21 10/29/22 propranolol 10 mg tablet 10 mg PO DAILY blood pressure 08/16/21 10/29/22 Allergies Allergy/AdvReac Type Severity Reaction Status Date / Time silver Allergy Mild Verified 09/13/21 08:09 [From Tegaderm AG Mesh] adhesive tape Allergy Rash Verified 09/13/21 08:34 AMOXICILLIN Allergy Unknown NA-NAUSEA Uncoded 08/21/17 15:37 From AUGMENTIN Allergy Unknown NA-NAUSEA Uncoded 08/21/17 15:37 MORPHINE Allergy Unknown NA-NAUSEA Uncoded 08/21/17 15:37
[2022-10-29 20:23] LABS: Microscopic, Urine URINE MICROSCOPIC (MICROSCOPIC)
[2022-10-29 20:28] LABS: Appearance,Urine CLEAR (Clear); Bilirubin,Urine Negative (Negative); Blood, Urine Negative (Negative); Color,Urine YELLOW (Yellow); Glucose,Urine (UA) Negative (Negative); Ketones,Urine Negative (Negative); Leukocyte Esterase,Urine Negative (Negative); Nitrate,Urine POSITIVE (Negative); Protein,Urine Negative (Negative); Urobilinogen,Urine 0.2 EU/dl (0.2)
[2022-10-29 20:34] LABS: Basophils % 0.4 % (0.1-2.0); Eosinophils # 0.5 K/mm3 (0.0-0.4); Eosinophils % 5.7 % (0.1-12.0); Hematocrit 29.7 % (37.0-47.0); Lymphocytes # 1.2 K/mm3 (0.7-4.5); Lymphocytes % 13.1 % (10-50); Mean Corpuscular HGB Conc 33.7 g/dL (31.8-35.4); Mean Corpuscular Hemoglobin 29.3 pg (27.0-31.2); Mean Corpuscular Volume 86.9 fl (81-99); Mean Platelet Volume 7.9 fl (7.4-10.4); Monocytes # 0.8 K/mm3 (0.1-1.0); Monocytes % 8.2 % (1.7-9.3); Neutrophils # 6.7 K/mm3 (1.8-7.8); Neutrophils % 72.6 % (37.0-80.0); Platelet Count 351 K/mm3 (142-424); Red Blood Count 3.42 M/mm3 (4.20-5.40); Red Cell Distribution Width 15.8 % (11.5-17.5); White Blood Count 9.2 K/mm3 (4.8-10.8)
[2022-10-29 20:40] LABS: Alanine Aminotransferase 84 U/L (12-78); Albumin Level 2.7 g/dl (3.5-5.0); Albumin/Globulin Ratio 0.8 (1.1-1.8); Alkaline Phosphatase 140 U/L (38-126); Anion Gap 4.4 mEq/L (5-15); Aspartate Amino Transferase 145 U/L (14-36); Bilirubin,Total 0.5 mg/dl (0.2-1.3); Blood Urea Nitrogen 31 mg/dl (7-17); Calcium 8.1 mg/dl (8.4-10.2); Carbon Dioxide 26 mmol/L (22.0-30.0); Chloride 107 mmol/L (98-107); Creatinine Clearance Estimated 59 mL/min (50-200); Estimated Glomerular Filt Rate 32 ml/min (>60); GFR (African American) 39 ML/MIN (>60); Globulin 3.3 g/dL (1.3-3.2); Glucose 113 mg/dl (74-100); Potassium 3.4 mmoL/L (3.5-5.1); Sodium 134 mmol/L (136-145)
[2022-10-29 21:03] LABS: Bacteria,Urine 3+ /lpf
[2022-10-29 21:05] LABS: Troponin I < 0.01 ng/ml (0.00-0.034)
[2022-10-29 21:31] LABS: Amylase 39 U/L (30-110)
[2022-10-29 21:32] LABS: Lipase 89 U/L (23-300)
--- NOTE | 2022-10-29 21:40 | PC.NURSE ---
called pt's ride and aide to let her know she is ready for d/c and would need a ride home. The aide states she would like medication changes written down for her.
[2022-10-29 21:46] LABS: Troponin I < 0.01 ng/ml (0.00-0.034)
--- NOTE | 2022-10-29 22:37 | PC.NURSE ---
Pt continues to wait for her ride. Pt resting in bed.
--- NOTE | 2022-10-29 22:55 | PC.NURSE ---
Pt requested nurse to call family to see where they are. companion caregiver states that the family is coming from [place] to get her but they are on their way.
--- NOTE | 2022-10-29 23:01 | PC.NURSE ---
Called pt's aide to check on time to pick pt up. She reports that maybe midnight . She was advised that pt is d/c and only awaiting a ride but can not sit in the lobby.
== END 2022-10-30 00:50 | disposition home or self-care (01) ==
PROVIDERS: Emergency Provider Emergency Medicine; PCP Family Medicine
DX: R07.89 Other chest pain (principal); K21.9 Gastro-esophageal reflux disease without esophagitis; N61.0 Mastitis without abscess; N18.9 Chronic kidney disease, unspecified; Z87.891 Personal history of nicotine dependence
CPT/HCPCS: 71045; 80053; 81001; 82150; 83690; 84484; 85025; 87086; 87088; 87186; 93005; 96361; 96374; 96375; 99285; J2405

== ENCOUNTER 2022-11-04 17:37 | Inpatient (IN) | payer MEDICARE, MEDICAID, SELFPAY ==
[2022-11-04] VITALS (8 sets, daily range): BP systolic 103–140; BP diastolic 60–103; PULSE 83–102; RESP 20–25; TEMP 36.6–37; O2SAT 90–100; BMI 34.2; BMI 32.0
[2022-11-04 17:56] LABS: ABG Base Excess 0.7 mmol/L (-2.4-2.3); ABG HCO3 23.6 mmhg (22.0-26.0); ABG Oxygen Saturation 89 % (90-100); ABG PCO2 29.7 mmhg (35.0-45.0); ABG PH 7.52 mmol/L (7.35-7.45); ABG PO2 52.4 mmhg (80-100); ABG TCO2 24.5 mmhg (23-27)
[2022-11-04 17:57] LABS: Allen's Test Y; Oxygen 4 %; Source Right Radial
--- NOTE | 2022-11-04 18:04 | ECG_ITS ---
APPROVED REPORT Exam: Resting ECG HR:101 bpm ECG Measurements Heart Rate 101 AXES MI 122 P -57 QRSd 82 QRS -14 QT 378 T 222 QTc 436 Conclusion ECTOPIC ATRIAL TACHYCARDIA ST DEVIATION AND MODERATE T-WAVE ABNORMALITY, CONSIDER LATERAL ISCHEMIA [-0.1+ mV T-WAVE IN I/aVL/V5/V6] ABNORMAL ECG UNCONFIRMED REPORT Electronically signed by : Clifford Hernandez MD 11/05/2022 07:04:32
--- NOTE | 2022-11-04 18:04 | XR_ITS ---
PROCEDURE INFORMATION: Exam: XR Chest Exam date and time: 11/04/2022 6:24 PM Age: 67 years old Clinical indication: Dyspnea TECHNIQUE: Imaging protocol: Radiologic exam of the chest. Views: 1 view. COMPARISON: CR XR CHEST PORTABLE 10/29/2022 8:02 PM FINDINGS: Lungs: There has been interval development of dense consolidation in the right lower lung. Mild infiltrate has developed in the left lower lung as well. Upper lungs remain clear. Pleural spaces: Unremarkable. No pleural effusion. No pneumothorax. Heart/Mediastinum: Unremarkable. No cardiomegaly. Bones/joints: Unremarkable. IMPRESSION: Bilateral lower lung pneumonia, severe on the right and mild on the left
--- NOTE | 2022-11-04 18:14 | HMH.EDGENADL ---
Discharge Plan Disposition Patient Disposition: Admitted As Inpatient Condition: Fair Chief Complaint: Shortness of Breath/Dyspnea Prescriptions Prescriptions: No Action atorvastatin 40 MG tablet 40 mg PO HS primidone 50 MG tablet 150 mg PO BID diclofenac sodium 100 GM gel 100 gm TP QID ofloxacin 5 ML bottle 5 ml OP QID hydrochlorothiazide 50 MG tablet 50 mg PO BID ciprofloxacin HCl 250 MG tablet 250 mg PO BID omeprazole 40 MG capsule,delayed release(DR/EC) 40 mg PO BID propranolol 10 MG tablet 10 mg PO DAILY dicyclomine 20 MG tablet 20 mg PO TID mupirocin calcium 15 GM cream 1 applicatio TP BID mirabegron 50 MG tablet extended release 24 hr 50 mg PO DAILY fluticasone furoate 200 MCG blister with device 200 mcg IH DAILY dulaglutide 0.75 MG/0.5 ML pen injector 0.75 mg SQ WEEKLY Referrals Follow up/Referrals: Darek Kinsey [Primary Care Provider] - See instructions Clinical Impressions Clinical Impression: Respiratory failure with hypoxia, Pneumonia, Acute kidney injury, Congestive heart failure of unknown etiology, Abnormal transaminases Discharge ED Provider: Jesus Callahan General Adult HPI General Chief complaint: Shortness of Breath/Dyspnea Stated complaint: Difficulity breathing Time Seen by Provider: 11/04/22 19:21 Mode of Arrival: EMS Source of Information: Patient and EMS Limitations: No Limitations Description of Symptoms (Recalled from ER Triage Doc. by RN): pt comes in with c/o dyspnea and congestion. symptoms began 3 days ago. worseing last night into today. also has had episodes of nausea, vomitting that began today. ems states upon arrival to scene pt room air sat was 77%. upon arrival room air sat was 84, oxygen applied. History of Present Illness HPI narrative: Patient presents to the emergency department with shortness of breath. The patient states that this started earlier today. She states that she has had generalized malaise. Denies any fever, chills, vomiting or diarrhea. States she has had significant cough and congestion. Denies any history of smoking. Denies any history of COPD. States that she was significantly dyspneic and was found to be 77% at home. Patient was given albuterol treatment, supplemental oxygen and brought to the emergency department. Related Data Home Medications Medication Instructions Recorded Confirmed atorvastatin 40 mg tablet 40 mg PO HS Cholesterol 08/16/21 10/29/22 ciprofloxacin HCl 250 mg tablet 250 mg PO BID Infection 08/16/21 10/29/22 diclofenac sodium 3 % topical gel 100 gm TP QID Pain 08/16/21 10/29/22 dicyclomine 20 mg tablet 20 mg PO TID IBS 08/16/21 10/29/22 dulaglutide 0.75 mg/0.5 mL 0.75 mg SQ WEEKLY Diabetes 08/16/21 10/29/22 subcutaneous pen injector fluticasone furoate 200 200 mcg IH DAILY Asthma 08/16/21 10/29/22 mcg/actuation blister powder for inhalation hydrochlorothiazide 50 mg tablet 50 mg PO BID Fluid 08/16/21 10/29/22 mirabegron 50 mg tablet,extended 50 mg PO DAILY bladder spasms 08/16/21 10/29/22 release 24 hr mupirocin calcium 2 % topical cream 1 applicatio TP BID Infection 08/16/21 10/29/22 ofloxacin 0.3 % eye drops 5 ml OP QID vision 08/16/21 10/29/22 omeprazole 40 mg capsule,delayed 40 mg PO BID GERD 08/16/21 10/29/22 release primidone 50 mg tablet 150 mg PO BID Infection 08/16/21 10/29/22 propranolol 10 mg tablet 10 mg PO DAILY blood pressure 08/16/21 10/29/22 Allergies Allergy/AdvReac Type Severity Reaction Status Date / Time silver Allergy Mild Verified 09/13/21 08:09 [From Tegaderm AG Mesh] adhesive tape Allergy Rash Verified 09/13/21 08:34 AMOXICILLIN Allergy Unknown NA-NAUSEA Uncoded 08/21/17 15:37 From AUGMENTIN Allergy Unknown NA-NAUSEA Uncoded 08/21/17 15:37 MORPHINE Allergy Unknown NA-NAUSEA Uncoded 08/21/17 15:37 [facility] Disclaimer: The information contained in this section may have been upda
--- NOTE | 2022-11-04 18:14 | PC.NURSE ---
swabbed pt for rapid covid/flu
[2022-11-04 18:23] LABS: Chloride 100 mmol/L (98-107); Potassium 3.6 mmoL/L (3.5-5.1); Sodium 136 mmol/L (136-145)
[2022-11-04 18:25] LABS: Alanine Aminotransferase 82 U/L (12-78); Aspartate Amino Transferase 101 U/L (14-36); Blood Urea Nitrogen 35 mg/dl (7-17); Creatinine Clearance Estimated 45 mL/min (50-200); Estimated Glomerular Filt Rate 25 ml/min (>60); GFR (African American) 30 ML/MIN (>60)
[2022-11-04 18:26] LABS: Albumin Level 3.2 g/dl (3.5-5.0); Albumin/Globulin Ratio 0.8 (1.1-1.8); Alkaline Phosphatase 197 U/L (38-126); Anion Gap 12.6 mEq/L (5-15); Bilirubin,Total 0.8 mg/dl (0.2-1.3); Calcium 8.3 mg/dl (8.4-10.2); Carbon Dioxide 27 mmol/L (22.0-30.0); Globulin 4.1 g/dL (1.3-3.2); Glucose 179 mg/dl (74-100); Total Protein,Serum 7.3 g/dl (6.3-8.2)
--- NOTE | 2022-11-04 18:29 | PC.NURSE ---
Rounded on patient. Helped patient up in bed. Call light within reach
--- NOTE | 2022-11-04 18:33 | PC.NURSE ---
Went back into room to readjust patient. placed patient onto side with Bushra NYE. Call light within reach
[2022-11-04 18:38] LABS: Coronavirus 19, PCR Not Detected (NotDetected); Influenza A, PCR Not Detected (NotDetected); Influenza B, PCR Not Detected (NotDetected)
--- NOTE | 2022-11-04 18:41 | CT_ITS ---
PROCEDURE INFORMATION: Exam: CT Abdomen And Pelvis Without Contrast Exam date and time: 11/04/2022 6:54 PM Age: 67 years old Clinical indication: Abdominal pain; Additional info: Abd pain TECHNIQUE: Imaging protocol: Computed tomography of the abdomen and pelvis without contrast. Radiation optimization: All CT scans at this facility use at least one of these dose optimization techniques: automated exposure control; mA and/or kV adjustment per patient size (includes targeted exams where dose is matched to clinical indication); or iterative reconstruction. REPORTING DATA: Count of CT and Cardiac NM exams in prior 12 months: This patient has received 6 known CTs and 0 known cardiac nuclear medicine studies in the 12 months prior to the current study. COMPARISON: CT ABDOMEN PELVIS W CON 08/28/2022 3:34 PM FINDINGS: Lungs: Significant alveolar infiltrates noted in the bilateral lower lungs. Liver: Normal. No mass. Gallbladder and bile ducts: Gallbladder is surgically absent. Pancreas: There is partial fatty replacement of the pancreas. Spleen: Normal. No splenomegaly. Adrenal glands: Normal. No mass. Kidneys and ureters: Normal. No hydronephrosis. Stomach and bowel: There is moderate sigmoid diverticulosis. Bowel loops are normal in caliber. No wall thickening or bowel obstruction. There is a moderate-sized hiatal hernia containing the gastric fundus. Appendix: No evidence of appendicitis. Intraperitoneal space: Unremarkable. No free air. No significant fluid collection. Vasculature: Unremarkable. No abdominal aortic aneurysm. Lymph nodes: Unremarkable. No enlarged lymph nodes. Urinary bladder: Unremarkable as visualized. Reproductive: Unremarkable as visualized. Bones/joints: Severe degenerative disc changes produce severe spinal stenosis throughout the lumbar spine, with sparing of the L1-L2 level. Moderate degenerative changes are noted in the bony pelvis. Soft tissues: Unremarkable. IMPRESSION: 1. No acute abnormality evident in the abdomen or pelvis 2. Severe degenerative changes and spinal stenosis in the lumbar spine. 3. Findings of bilateral pneumonia/pneumonitis in the lower lungs. 4. Moderate-sized hiatal hernia.
--- NOTE | 2022-11-04 18:41 | CT_ITS ---
PROCEDURE INFORMATION: Exam: CT Chest Without Contrast; Diagnostic Exam date and time: 11/04/2022 6:52 PM Age: 67 years old Clinical indication: Dyspnea; Additional info: SOA TECHNIQUE: Imaging protocol: Diagnostic computed tomography of the chest without contrast. Radiation optimization: All CT scans at this facility use at least one of these dose optimization techniques: automated exposure control; mA and/or kV adjustment per patient size (includes targeted exams where dose is matched to clinical indication); or iterative reconstruction. REPORTING DATA: Count of CT and Cardiac NM exams in prior 12 months: This patient has received 6 known CTs and 0 known cardiac nuclear medicine studies in the 12 months prior to the current study. COMPARISON: CR XR CHEST PORTABLE 11/04/2022 6:24 PM FINDINGS: Lungs: Patchy diffuse bilateral alveolar and ground-glass infiltrates are present, most severe in the right lower lung. Pleural spaces: Unremarkable. No pneumothorax. No pleural effusion. Heart: Unremarkable. No cardiomegaly. No pericardial effusion. Coronary arteries: Dense coronary artery calcifications are noted. Lymph nodes: Unremarkable. No enlarged lymph nodes. Vasculature: Moderate atherosclerotic calcification noted in the aortic arch. No evidence of aortic aneurysm. Stomach and bowel: There is a moderate-sized hiatal hernia containing the gastric fundus. Bones/joints: Unremarkable. No acute fracture. Soft tissues: Unremarkable. IMPRESSION: 1. Diffuse bilateral pulmonary infiltrates, most severe in the right lower lobe. Findings are compatible with active pneumonia/pneumonitis 2. Chronic osseous and atherosclerotic changes, including dense coronary artery calcifications. 3. Moderate-sized hiatal hernia
[2022-11-04 18:44] LABS: Basophils # 0.1 K/mm3 (0-0.2); Basophils % 0.3 % (0.1-2.0); Eosinophils # 0.1 K/mm3 (0.0-0.4); Eosinophils % 0.5 % (0.1-12.0); Hematocrit 37.5 % (37.0-47.0); Hemoglobin 12.2 g/dL (12.2-16.2); Lymphocytes # 0.8 K/mm3 (0.7-4.5); Lymphocytes % 4.1 % (10-50); Mean Corpuscular HGB Conc 32.5 g/dL (31.8-35.4); Mean Corpuscular Hemoglobin 28.5 pg (27.0-31.2); Mean Corpuscular Volume 87.9 fl (81-99); Mean Platelet Volume 7.3 fl (7.4-10.4); Monocytes # 0.7 K/mm3 (0.1-1.0); Monocytes % 3.6 % (1.7-9.3); Neutrophils # 17.5 K/mm3 (1.8-7.8); Neutrophils % 91.5 % (37.0-80.0); Platelet Count 521 K/mm3 (142-424); Red Blood Count 4.26 M/mm3 (4.20-5.40); Red Cell Distribution Width 15.9 % (11.5-17.5); White Blood Count 19.1 K/mm3 (4.8-10.8)
[2022-11-04 18:45] LABS: Lactic Acid 4.1 mmol/L (0.7-2.1)
--- NOTE | 2022-11-04 18:45 | PC.NURSE ---
LAB CALLED WITH CRITICAL LACTIC 4.1 ER AWARE.
[2022-11-04 18:46] LABS: MANUAL DIFFERENTIAL MANUAL DIFFERENTIAL (MANUAL DIFF)
[2022-11-04 18:55] LABS: NT Pro Brain Natriuretic Pep. 7510 pg/mL (0-125)
[2022-11-04 18:57] LABS: Lymphocytes % 6 % (10-50); Neutrophils % 94 % (42-76); Platelet Estimate Slight Increase; Total Cells Counted 100
[2022-11-04 18:58] LABS: RBC Morphology Normal
[2022-11-04 18:59] LABS: Troponin I 0.02 ng/ml (0.00-0.034)
[2022-11-04 19:04] LABS: Procalcitonin 0.307 ng/mL (0.0-2.0)
--- NOTE | 2022-11-04 19:20 | PC.NURSE ---
spoke to halfway house counselor about bed request
--- NOTE | 2022-11-04 19:21 | PC.NURSE ---
s/w MD regarding septic shock status and sepsis bolus d/t lactic >4. He stated he does not want to give the bolus at this time. BP is stable of 132/78. He states he is going to add note in his chart regarding this.
--- NOTE | 2022-11-04 20:13 | PC.NURSE ---
Pt's family friend and live in care-crude oil treater, Michelle Anguiano, called for update. She was updated on the pt's condition and admission status. This was OK'ed by the patient. Her phone # [phone]
--- NOTE | 2022-11-04 20:22 | PC.NURSE ---
Pt arrived to floor via stretcher @ 2021
--- NOTE | 2022-11-04 21:11 | PC.NURSE ---
RECEIVED PHONE REPORT FROM REJI RN/ED AT 1999. PATIENT ARRIVED TO THE FLOOR VIA STRETCHER.PATIENT FOUL SMELLING. BED BATH GIVEN IMMEDIATELY. BRIEF WAS SATURATED FROM THE ED. #16 F/C PLACED AND TO BSD, U/A COLLECTED AND TO LAB.
[2022-11-04 21:27] LABS: Adenovirus,PCR Not Detected (NotDetected); Bordetella Pertussis Not Detected (NotDetected); Chlamydophila Pneumoniae, PCR Not Detected (NotDetected); Coronavirus 19, PCR Not Detected (NotDetected); Coronavirus 229E Not Detected (NotDetected); Coronavirus NL63 Not Detected (NotDetected); Coronavirus OC43 Not Detected (NotDetected); Coronovirus HKU1,PCR Not Detected (NotDetected); Influenza A, PCR Not Detected (NotDetected); Influenza AH1, 2009 Not Detected (NotDetected); Influenza AH1, PCR Not Detected (NotDetected); Influenza AH3,PCR Not Detected (NotDetected); Influenza B, PCR Not Detected (NotDetected); Mycoplasma Pneumoniae, PCR Not Detected (NotDetected); Parainfluenza 1, PCR Not Detected (NotDetected); Parainfluenza 2, PCR Not Detected (NotDetected); Parainfluenza 3, PCR Not Detected (NotDetected); Parainfluenza 4, PCR Not Detected (NotDetected); Respiratory Syncytial Virus Not Detected (NotDetected); Rhinovirus/Enterovirus Not Detected (NotDetected)
--- NOTE | 2022-11-04 21:40 | EXP.HP ---
History of Present Illness *Admission Date: 11/04/22 *Reason for visit:: Shortness of breath *History of present illness: this is a 67-year-old female with a past medical history of GERD, CKD, CHF who presents to the emergency department today with complaints of shortness of breath. On arrival to the emergency department patient was noted to have oxygen saturations in the 70s on room air. She is not on oxygen at baseline. She endorses cough and shortness of breath over the last several days with acute increase today. She reports that she has had productive sputum but no fever. She reports poor p.o. intake in the setting of feeling generally unwell. She denies chest pain, palpitations, nausea, vomiting diarrhea. She does endorse being around sick children in the last week. She is COVID and flu negative. Patient was initially placed on Ventimask with persistent hypoxia and transitioned over to CPAP with improvement in oxygen saturations to the low 90s. Chest CT shows right greater than left pneumonitis. creatinine elevated to 2.0. Transaminitis noted. CT scan of abdomen negative acute. Leukocytosis noted with a white blood cell count of 19. ABG shows respiratory alkalosis with oxygen saturation of 89%. Lactate of 4.1, troponin negative, BNP is 7500. Given patient's above-mentioned complaints and laboratory evaluation, she will be admitted to the hospital service for further evaluation management. [facility] Disclaimer: The information contained in this section may have been updated after the patient was seen, as this information can be updated by other users. Medical History Arthritis Cannot walk Cholecystitis with cholelithiasis Depression Diabetes Diabetes History of back pain HTN (hypertension) Hypothyroid Surgical History (Updated 11/04/22 @ 21:21 by Yin Yadav RN) History of back surgery Family History (Updated 11/04/22 @ 21:19 by Yin Yadav RN) Mother Family history of cancer Father Stroke Father Hypertension Social History (Updated 11/04/22 @ 21:25 by Yin Yadav RN) Smoking Status: Never smoker alcohol intake: never current occupational status: retired Travel in the last 8 weeks: None adopted: No caregiver/support person: Yes (YENY STUBBLE/DAUGHTER) foster care: No household members: family housing: house lives independently: No marital status: number of children: 2 diet: diabetic well-balanced diet: rarely or never caffeine: Yes physical activity: none Review of Systems Review of Systems Review of systems:: pertinent systems reviewed and negative unless documented below *Cardiovascular Cardiovascular: Reports dyspnea and Reports dyspnea on exertion *Respiratory Respiratory: Reports change in phlegm color, Reports chest congestion, Reports cough, Reports dyspnea, Reports dyspnea on exertion and Reports excessive phlegm production Meds Home Medications and Allergies Home Medications Medication Instructions Recorded Confirmed Type atorvastatin 40 mg tablet 40 mg PO HS Cholesterol 08/16/21 10/29/22 History ciprofloxacin HCl 250 mg tablet 250 mg PO BID Infection 08/16/21 10/29/22 History diclofenac sodium 3 % topical gel 100 gm TP QID Pain 08/16/21 10/29/22 History dicyclomine 20 mg tablet 20 mg PO TID IBS 08/16/21 10/29/22 History dulaglutide 0.75 mg/0.5 mL 0.75 mg SQ WEEKLY Diabetes 08/16/21 10/29/22 History subcutaneous pen injector fluticasone furoate 200 200 mcg IH DAILY Asthma 08/16/21 10/29/22 History mcg/actuation blister powder for inhalation hydrochlorothiazide 50 mg tablet 50 mg PO BID Fluid 08/16/21 10/29/22 History mirabegron 50 mg tablet,extended 50 mg PO DAILY bladder spasms 08/16/21 10/29/22 History release 24 hr mupirocin calcium 2 % topical cream 1 applicatio TP BID Infection 08/16/21 10/29/22 History ofloxacin 0.3 % eye drops 5 ml OP QID vision 1
[2022-11-04 22:22] LABS: POC Glucose,Bedside 81 (70-110)
[2022-11-04 22:38] LABS: Reflex Lactic Add Lactic Reflex
--- NOTE | 2022-11-04 22:39 | PC.NURSE ---
PATIENT DOES NOT KNOW THE NAMES OF HER MEDICATIONS. NO FAMILY MEMBERS WITH HER. DOES NOT KNOW DAUGHTER YENY PHONE NUMBER. UNABLE TO VERIFY MEDS AT THIS TIME.
[2022-11-04 23:27] LABS: Lactic Acid Follow Up (RFLX 1) 3.7 mmol/L (0.7-2.1)
[2022-11-04 23:34] LABS: Human Metapneumovirus Detected (NotDetected)
[2022-11-05] VITALS (16 sets, daily range): BP systolic 84–128; BP diastolic 47–60; PULSE 65–93; RESP 18–26; TEMP 36.5–36.7; O2SAT 86–93; BMI 32.8
[2022-11-05 01:16] LABS: Reflex Lactic (2 hrs) Add Lactic Reflex
--- NOTE | 2022-11-05 01:55 | PC.NURSE ---
PATIENT'S 02 SAT PERIODICALLY DROPS INTO 80s, R.T. NOTIFIED AND TO EVALUATE PATIENT. Aleja PULIDO N.P. NOTIFIED THAT LUNGS SOUNDS REMAIN WET SOUNDING. PATIENT RECEIVED BUMEX IN THE ED.
--- NOTE | 2022-11-05 03:58 | PC.NURSE ---
pATIENT'S 02 SAT CONT TO DROP INTO LOW 80s DISPITE R.T. INCREASING VAPOTHERM. LUNGS MORE WET SOUNDING. Aleja PULIDO GROOVER RUNNER NOTIFIED AND ORDER FOR IVP LASIX 40 MG GIVEN. 02 INCREASED TO 90% VAPOTHERM. 02 SAT UP TO 93% AT THIS TIME.
--- NOTE | 2022-11-05 05:14 | PC.NURSE ---
PATIENT HAS HAD 250 PO AND 250 IV FOR TOTAL 500 ML IN. VERY SCAN UOP SINCE IV LASIX GIVEN AT APPROX 4 AM. TOTAL UOP THIS SHIFT 200 ML WHICH WAS EMPTIED FROM HERNANDES PRIOR TO LASIX. BP 94/54. SRNA REPORTS 5 LB WEIGHT GAIN SINCE ADMISSION. Aleja PULIDO NP CALLED AND MESSAGE LEFT ON ANSWERING MACHINE.
[2022-11-05 05:40] LABS: POC Glucose,Bedside 77 (70-110)
--- NOTE | 2022-11-05 06:00 | XR_ITS ---
PROCEDURE INFORMATION: Exam: XR Chest Exam date and time: 11/05/2022 8:35 AM Age: 67 years old Clinical indication: Shortness of breath; Additional info: Hypoxia TECHNIQUE: Imaging protocol: Radiologic exam of the chest. Views: 1 view. COMPARISON: CT CHEST WO CON 11/04/2022 6:52 PM FINDINGS: Lungs: Masslike opacity in the right base. Diffuse opacities in the right hemithorax and left base. Findings most consistent with multifocal pneumonia. . Pleural spaces: Unremarkable. No pleural effusion. No pneumothorax. Heart/Mediastinum: Unremarkable. No cardiomegaly. Bones/joints: Unremarkable. IMPRESSION: Masslike opacity in the right base. Diffuse opacities in the right hemithorax and left base. Findings most consistent with multifocal pneumonia. .
--- NOTE | 2022-11-05 07:47 | EXP.PN ---
Subjective *Date: 11/05/22 *Time: 07:47 Interval history: Date of service November 05, 2022 The patient reports ongoing dyspnea but improved from ED presentation. Nursing staff report that she remains afebrile with improved heart rates and blood pressures. She is utilizing Vapotherm oxygen 30 L with FiO2 75% to maintain appropriate oxygen saturations. We have reviewed and discussed her morning labs and imaging and I have personally interpreted her results as follows: CBC with a leukocytoses white blood cell count of 19, hemoglobin of 12 hematocrit 37 and platelet count 521. Her electrolytes are normal with a BUN 35 and creatinine 2.0 with a baseline of 1.4. Her glucose trend is under 180. Her lactic acid is elevated as well as her AST and ALT. Her BNP is elevated at 7500, troponins are negative. Her procalcitonin is negative. Chest x-ray identifies right lower lobe pneumonia and CT scan of the chest confirms findings with a moderate size hiatal hernia. CT of the abdomen identifies hiatal hernia. She is tolerating her IV antibiotic therapy with no adverse events and blood cultures are pending. Exam Data for Last 24 hours Vital signs and Labs for Last 24 Hours: Temp Pulse Resp BP Pulse Ox FiO2 98.1 F 88 24 94/54 L 91 L 75 11/05/22 04:00 11/05/22 04:10 11/05/22 04:00 11/05/22 04:00 11/05/22 04:00 11/04/22 22:36 Laboratory Results - last 24 hr 11/04/22 17:40: Lactate 4.1 H 11/04/22 17:40: Procalcitonin 0.307 11/04/22 17:46: WBC 19.1 H, RBC 4.26, Hgb 12.2, Hct 37.5, MCV 87.9, MCH 28.5, MCHC 32.5, RDW 15.9, Plt Count 521 H, MPV 7.3 L, Neut % (Auto) 91.5 H, Lymph % (Auto) 4.1 L, [place] % (Auto) 3.6, Eos % (Auto) 0.5, Baso % (Auto) 0.3, Neut # (Auto) 17.5 H, Lymph # (Auto) 0.8, [place] # (Auto) 0.7, Eos # (Auto) 0.1, Baso # (Auto) 0.1, Total Counted 100, Neutrophils % (Manual) 94 H, Lymphocytes % (Manual) 6 L, Platelet Estimate Slight increase, RBC Morphology Normal 11/04/22 17:46: Sodium 136, Potassium 3.6, Chloride 100, Carbon Dioxide 27, Anion Gap 12.6, BUN 35 H, Creatinine 2.00 H, Estimated Creat Clear 45, Estimated GFR 25 L, Est GFR ( Amer) 30 L, Glucose 179 H, Calcium 8.3 L, Total Bilirubin 0.8, AST 101 H, ALT 82 H, Alkaline Phosphatase 197 H, Total Protein 7.3, Albumin 3.2 L, Globulin 4.1 H, Albumin/Globulin Ratio 0.8 L 11/04/22 17:46: SARS-CoV-2 (PCR) Not detected, Influenza A Untype (PCR) Not detected, Influenza Type B (PCR) Not detected 11/04/22 17:46: Troponin I 0.02 11/04/22 17:46: NT-Pro-B Natriuret Pep 7510 H 11/04/22 17:55: Specimen Source Right radial, O2 % 4, ABG pH 7.52 H, ABG pCO2 29.7 L, ABG pO2 52.4 L, ABG HCO3 23.6, ABG Total CO2 24.5, ABG O2 Saturation 89 L, ABG Base Excess 0.7, Roly Test Y 11/04/22 18:13: Chlamy pneumoniae PCR Not detected, Adenovirus (PCR) Not detected, B. pertussis DNA (PCR) Not detected, Coronavirus OC43 (PCR) Not detected, Coronavirus HKU1 (PCR) Not detected, Coronavirus 229E (PCR) Not detected, SARS-CoV-2 (PCR) Not detected, Coronavirus NL63 (PCR) Not detected, Human Metapneumovir PCR Detected A, Influenza A (H1) PCR Not detected, Influ A (H1N1/09) PCR Not detected, Influenza A (H3) PCR Not detected, Influenza Type A (PCR) Not detected, Influenza Type B (PCR) Not detected, M. pneumoniae (PCR) Not detected, Parainfluenza 1 (PCR) Not detected, Parainfluenza 2 (PCR) Not detected, Parainfluenza 3 (PCR) Not detected, Parainfluenza 4 (PCR) Not detected, RSV (PCR) Not detected, Entero/Rhino (PCR) Not detected 11/04/22 22:14: POC Glucose 81 11/04/22 23:05: Lactate 3.7 H 11/05/22 05:31: POC Glucose 77 I & O for Last 24 hours: Intake & Output 11/02/22 11/03/22 11/04/22 11/05/22 23:59 23:59 23:59 23:59 Intake Total 500 / 500 Output Total 200 / 200 Balance 300 / 300 Weight 95.935 kg 98.157 kg Constitutional Constitutional: no acute distress, obese, chronically ill appearing and cooperative *Routine HEENT Exam Head: Present normocephalic Eye: Present EOMI and PERRL ENT: Present m
[2022-11-05 12:03] LABS: POC Glucose,Bedside 81 (70-110)
[2022-11-05 15:56] LABS: Basophils # 0.2 K/mm3 (0-0.2); Basophils % 0.5 % (0.1-2.0); Eosinophils # 0.1 K/mm3 (0.0-0.4); Eosinophils % 0.2 % (0.1-12.0); Hematocrit 30.8 % (37.0-47.0); Lymphocytes # 0.8 K/mm3 (0.7-4.5); Lymphocytes % 2.4 % (10-50); Mean Corpuscular HGB Conc 33.8 g/dL (31.8-35.4); Mean Corpuscular Hemoglobin 29.2 pg (27.0-31.2); Mean Corpuscular Volume 86.6 fl (81-99); Mean Platelet Volume 8.2 fl (7.4-10.4); Monocytes # 1.1 K/mm3 (0.1-1.0); Monocytes % 3.3 % (1.7-9.3); Neutrophils # 31.9 K/mm3 (1.8-7.8); Neutrophils % 93.6 % (37.0-80.0); Platelet Count 346 K/mm3 (142-424); Red Blood Count 3.56 M/mm3 (4.20-5.40); White Blood Count 34.1 K/mm3 (4.8-10.8)
[2022-11-05 15:59] LABS: MANUAL DIFFERENTIAL MANUAL DIFFERENTIAL (MANUAL DIFF)
[2022-11-05 16:00] LABS: Chloride 101 mmol/L (98-107); Sodium 133 mmol/L (136-145)
[2022-11-05 16:01] LABS: Lactic Acid 2.7 mmol/L (0.7-2.1); Potassium 4.2 mmoL/L (3.5-5.1)
[2022-11-05 16:03] LABS: Anion Gap 11.2 mEq/L (5-15); Blood Urea Nitrogen 42 mg/dl (7-17); Carbon Dioxide 25 mmol/L (22.0-30.0); Creatinine Clearance Estimated 36 mL/min (50-200); Estimated Glomerular Filt Rate 20 ml/min (>60); GFR (African American) 24 ML/MIN (>60)
[2022-11-05 16:04] LABS: Calcium 7.4 mg/dl (8.4-10.2); Glucose 85 mg/dl (74-100); Magnesium 2.1 mg/dl (1.6-2.3)
[2022-11-05 16:09] LABS: C-Reactive Protein 288.3 mg/L (0-4)
[2022-11-05 16:16] LABS: Chol/HDL Ratio 2.8 (1-3.5); Cholesterol 74 mg/dl (140-200); HDL Cholesterol 26 mg/dl (40-60); Triglycerides 117 mg/dl (30-150); Troponin I 0.02 ng/ml (0.00-0.034); VLDL Cholesterol 23 mg/dL (0-40)
[2022-11-05 16:21] LABS: Free T4 (Free Thyroxine) 2.21 ng/dl (0.78-2.19)
[2022-11-05 16:26] LABS: Erythrocyte Sedimentation Rate 26 mm/hr (0-30)
[2022-11-05 16:28] LABS: Direct LDL Cholesterol < 30.00 mg/dL (100-129)
[2022-11-05 16:37] LABS: POC Glucose,Bedside 87 (70-110)
[2022-11-05 16:40] LABS: Hemoglobin A1C 5.7 % (4.0-6.0)
[2022-11-05 16:46] LABS: Thyroid Stimulating Hormone 0.07 uIU/mL (0.465-4.68)
--- NOTE | 2022-11-05 17:21 | PC.NURSE ---
PT ALERT X4, TEJAS CRACKLES HEARD T/O LUNGS. PT HAS HAD VERY LITTLE UOP SO FAR THUS MD KEYONA NOTIFIED. WILL CONTINUE TO MONITOR. PT REQUESTED YENY, PTS FAMILY SUPPORT SPECIALIST, TO BE MADE PERSON TO NOTIFY AND SISTER DILEEP TO BE NEXT OF KIN ON CONTACT LIST. VERIFIED PTS HOME MEDICATIONS OVER THE PHONE WITH YENY, COMMUNICATED WITH PHARM.
[2022-11-05 19:28] LABS: Burr Cells 1+; Lymphocytes % 5 % (10-50); Neutrophils % 94 % (42-76); Platelet Estimate Normal; Total Cells Counted 100
[2022-11-05 19:39] LABS: Hemoglobin 10.4 g/dL (12.2-16.2)
[2022-11-05 19:42] LABS: Reflex Lactic Add Lactic Reflex
[2022-11-05 20:40] LABS: POC Glucose,Bedside 127 (70-110)
[2022-11-05 23:17] LABS: Lactic Acid Follow Up (RFLX 1) 2.5 mmol/L (0.7-2.1)
[2022-11-06] VITALS (18 sets, daily range): BP systolic 82–136; BP diastolic 43–92; PULSE 68–121; RESP 18–26; TEMP 36.1–36.7; O2SAT 81–100; BMI 33.2; BMI 33.0
[2022-11-06 01:16] LABS: Reflex Lactic (2 hrs) Add Lactic Reflex
[2022-11-06 01:25] LABS: Lactic Acid Follow up (RFLX 2) 2.3 mmol/L (0.7-2.1)
--- NOTE | 2022-11-06 06:27 | PC.NURSE ---
PT HAS NOT RESTED MUCH THIS SHIFT CONSTANTLY WANTING TO BE TURNED SIDE TO SIDE ABOUT EVERY 30 MIN. PT IS NOT ON VAPO 40/100 AND A NON-REBREATHER. PT HAS NOT WANTED TO KEEP HER O2 ON THIS SHIFT. PT EDUCATED ON NEED FOR O2. [facility] WAS MADE A OMER THAT PT HAS ONLY HAD ABOUT 25ML OF URINE OUT THIS SHIFT WELL HER INCREASED 02 NEEDS. [facility]ICE [facility] STATED SHE WOULD PUT IN A PULMONOLOGY CONSULT.
[2022-11-06 06:29] LABS: POC Glucose,Bedside 126 (70-110)
[2022-11-06 07:30] LABS: Basophils # 0.1 K/mm3 (0-0.2); Basophils % 0.4 % (0.1-2.0); Eosinophils # 0.1 K/mm3 (0.0-0.4); Eosinophils % 0.2 % (0.1-12.0); Hematocrit 30.4 % (37.0-47.0); Hemoglobin 9.8 g/dL (12.2-16.2); Lymphocytes # 0.8 K/mm3 (0.7-4.5); Lymphocytes % 2.3 % (10-50); Mean Corpuscular HGB Conc 32.1 g/dL (31.8-35.4); Mean Corpuscular Hemoglobin 29.1 pg (27.0-31.2); Mean Corpuscular Volume 90.6 fl (81-99); Mean Platelet Volume 9.1 fl (7.4-10.4); Monocytes # 1.4 K/mm3 (0.1-1.0); Monocytes % 3.8 % (1.7-9.3); Neutrophils # 33.4 K/mm3 (1.8-7.8); Neutrophils % 93.3 % (37.0-80.0); Platelet Count 409 K/mm3 (142-424); Red Blood Count 3.36 M/mm3 (4.20-5.40); Red Cell Distribution Width 15.6 % (11.5-17.5); White Blood Count 35.8 K/mm3 (4.8-10.8)
[2022-11-06 07:34] LABS: Alanine Aminotransferase 93 U/L (12-78); Albumin Level 2.3 g/dl (3.5-5.0); Albumin/Globulin Ratio 0.7 (1.1-1.8); Alkaline Phosphatase 133 U/L (38-126); Anion Gap 8.8 mEq/L (5-15); Aspartate Amino Transferase 160 U/L (14-36); Bilirubin,Total 0.5 mg/dl (0.2-1.3); Blood Urea Nitrogen 42 mg/dl (7-17); Calcium 7.6 mg/dl (8.4-10.2); Carbon Dioxide 27 mmol/L (22.0-30.0); Chloride 100 mmol/L (98-107); Creatinine Clearance Estimated 32 mL/min (50-200); Estimated Glomerular Filt Rate 18 ml/min (>60); GFR (African American) 21 ML/MIN (>60); Globulin 3.3 g/dL (1.3-3.2); Glucose 114 mg/dl (74-100); Potassium 3.8 mmoL/L (3.5-5.1); Sodium 132 mmol/L (136-145); Total Protein,Serum 5.6 g/dl (6.3-8.2)
[2022-11-06 07:43] LABS: NT Pro Brain Natriuretic Pep. 13700 pg/mL (0-125)
--- NOTE | 2022-11-06 07:58 | PC.NURSE ---
Dr. Saldana notified of patient's blood pressure, some confusion, little urinary output, and oxygen saturations on vapotherm and non-rebreather. Dr. Saldana came to bedside for assessment.
--- NOTE | 2022-11-06 08:02 | EXP.PN ---
Subjective *Date: 11/06/22 *Time: 10:23 Interval history: Date of service November 06, 2022 The patient reports dyspnea this morning. Ramona NYE reports that she remains afebrile with increased respiratory rate, some low blood pressures and requiring 40 L with FiO2 100 via Ventimask to maintain adequate oxygen saturations. Respiratory therapy is in the room drawing an arterial blood gas and providing NIPPV therapy. A morning chest x-ray has been requested. Morning staff are concerned with decreased urine output. Exam Data for Last 24 hours Vital signs and Labs for Last 24 Hours: Temp Pulse Resp BP Pulse Ox FiO2 97.0 F L 81 22 82/56 L 81 L 100 11/06/22 07:37 11/06/22 07:37 11/06/22 07:37 11/06/22 07:37 11/06/22 07:37 11/06/22 04:46 Laboratory Results - last 24 hr 11/05/22 11:50: POC Glucose 81 11/05/22 15:30: Hemoglobin A1c 5.7 11/05/22 15:30: Triglycerides 117, Cholesterol 74 L, LDL Cholesterol Direct < 30.00 L, VLDL Cholesterol 23, HDL Cholesterol 26 L, Cholesterol/HDL Ratio 2.8, TSH 0.07 L 11/05/22 15:30: Free T4 2.21 H 11/05/22 15:30: WBC 34.1 H* D, RBC 3.56 L, Hgb 10.4 L D, Hct 30.8 L, MCV 86.6, MCH 29.2, MCHC 33.8, RDW 16.0, Plt Count 346 D, MPV 8.2, Neut % (Auto) 93.6 H, Lymph % (Auto) 2.4 L, [place] % (Auto) 3.3, Eos % (Auto) 0.2, Baso % (Auto) 0.5, Neut # (Auto) 31.9 H, Lymph # (Auto) 0.8, [place] # (Auto) 1.1 H, Eos # (Auto) 0.1, Baso # (Auto) 0.2, Total Counted 100, Neutrophils % (Manual) 94 H, Band Neutrophils % 1.0, Lymphocytes % (Manual) 5 L, Platelet Estimate Normal, RBC Morphology Not Reportable, [place]tw[place] Cells 1+ 11/05/22 15:30: Sodium 133 L, Potassium 4.2, Chloride 101, Carbon Dioxide 25, Anion Gap 11.2, BUN 42 H, Creatinine 2.40 H, Estimated Creat Clear 36, Estimated GFR 20 L, Est GFR ( Amer) 24 L, Glucose 85 D, Calcium 7.4 L, Magnesium 2.1, Troponin I 0.02, C-Reactive Protein 288.3 H 11/05/22 15:30: Lactate 2.7 H 11/05/22 15:30: ESR 26 11/05/22 16:28: POC Glucose 87 11/05/22 20:27: POC Glucose 127 H 11/05/22 22:45: Lactate 2.5 H 11/05/22 22:45: WBC 35.8 H*, RBC 3.36 L, Hgb 9.8 L, Hct 30.4 L, MCV 90.6, MCH 29.1, MCHC 32.1, RDW 15.6, Plt Count 409, MPV 9.1, Neut % (Auto) 93.3 H, Lymph % (Auto) 2.3 L, [place] % (Auto) 3.8, Eos % (Auto) 0.2, Baso % (Auto) 0.4, Neut # (Auto) 33.4 H, Lymph # (Auto) 0.8, [place] # (Auto) 1.4 H, Eos # (Auto) 0.1, Baso # (Auto) 0.1 11/05/22 22:45: Sodium 132 L, Potassium 3.8, Chloride 100, Carbon Dioxide 27, Anion Gap 8.8, BUN 42 H, Creatinine 2.70 H, Estimated Creat Clear 32, Estimated GFR 18 L*, Est GFR ( Amer) 21 L, Glucose 114 H D, Calcium 7.6 L, Total Bilirubin 0.5, AST 160 H D, ALT 93 H, Alkaline Phosphatase 133 H, NT-Pro-B Natriuret Pep 69100 H, Total Protein 5.6 L, Albumin 2.3 L D, Globulin 3.3 H, Albumin/Globulin Ratio 0.7 L 11/06/22 00:55: Lactate 2.3 H 11/06/22 05:09: POC Glucose 126 H I & O for Last 24 hours: Intake & Output 11/03/22 11/04/22 11/05/22 11/06/22 23:59 23:59 23:59 23:59 Intake Total 980 / 980 0 / 0 Output Total 300 / 300 Balance 680 / 680 - / 25 Weight 95.935 kg 98.157 kg 99.427 kg Microbiology Reports for the Last 24 Hours: Microbiology 11/04/22 18:37 Blood Blood Culture - Preliminary 11/04/22 18:37 Blood Blood Culture - Preliminary Constitutional Constitutional: no acute distress, obese, chronically ill appearing, cooperative and agitated *Routine HEENT Exam Head: Present normocephalic Eye: Present EOMI and PERRL ENT: Present mucous membranes moist *Routine Neck Exam Neck: Present supple and trachea midline; Absent lymphadenopathy Routine Chest/Breast/Axilla Exam Comments: Right intertriginous rash *Routine Respiratory Exam Respiratory: Present respiratory distress, rhonchi, wheezes, crackles, diminished air movement and symmetric chest movement *Routine Cardiovascular Exam Cardiovascular: Present RRR *Routine Abdominal Exam Abdominal: Present soft and normoactive bowel sounds; Absent tenderness Comments:
[2022-11-06 08:03] LABS: ABG Base Excess -3.9 mmol/L (-2.4-2.3); ABG HCO3 21.3 mmhg (22.0-26.0); ABG Oxygen Saturation 78 % (90-100); ABG PCO2 37.3 mmhg (35.0-45.0); ABG PH 7.38 mmol/L (7.35-7.45); ABG TCO2 22.5 mmhg (23-27)
[2022-11-06 08:04] LABS: Allen's Test Patient Unable; Source Right Femoral
[2022-11-06 08:06] LABS: ABG PO2 44.3 mmhg (80-100)
--- NOTE | 2022-11-06 08:20 | EXP.PHA.CONS ---
Pharmacy Consult Date: 11/06/22 Time: 08:21 Referring provider: carroll Reason for Consult:: pharmacy consulted to manage vancomycin therapy during admission Allergies Allergy/AdvReac Type Severity Reaction Status Date / Time Penicillins Allergy Mild Nausea Verified 11/05/22 08:33 silver Allergy Mild Unknown Verified 11/05/22 08:33 [From Tegaderm AG Mesh] allergy reaction adhesive tape Allergy Rash Verified 09/13/21 08:34 morphine AdvReac Intermediate Nausea Verified 11/05/22 08:33 Home Medications Medication Instructions Recorded Confirmed Type atorvastatin 40 mg tablet 40 mg PO HS Cholesterol 08/16/21 11/05/22 History dicyclomine 20 mg tablet 20 mg PO TID IBS 08/16/21 11/05/22 History fluticasone furoate 200 200 mcg IH DAILY Asthma 08/16/21 11/05/22 History mcg/actuation blister powder for inhalation hydrochlorothiazide 50 mg tablet 50 mg PO DAILY Fluid 08/16/21 11/05/22 History mirabegron 50 mg tablet,extended 50 mg PO DAILY bladder spasms 08/16/21 11/05/22 History release 24 hr primidone 50 mg tablet 150 mg PO BID SEIZURES 08/16/21 11/05/22 History propranolol 10 mg tablet 10 mg PO BID blood pressure 08/16/21 11/05/22 History albuterol sulfate 2.5 mg/3 mL 2.5 mg inhalation Q6HP PRN SOA 11/05/22 11/05/22 History (0.083 %) solution for nebulization amlodipine 5 mg tablet 5 mg PO DAILY BLOOD PRESSURE 11/05/22 11/05/22 History brimonidine 0.2 % eye drops 1 drp Eye-Both BID Glaucoma 11/05/22 11/05/22 History diclofenac sodium 75 mg 75 mg PO BID INFLAMMATION 11/05/22 11/05/22 History tablet,delayed release esomeprazole magnesium 40 mg 40 mg PO BID GERD 11/05/22 11/05/22 History capsule,delayed release fluoxetine 40 mg capsule 40 mg PO BID Depression 11/05/22 11/05/22 History hydralazine 50 mg tablet 50 mg PO TID BLOOD PRESSURE 11/05/22 11/05/22 History lansoprazole 30 mg capsule,delayed 30 mg PO BID GERD 11/05/22 11/05/22 History release levothyroxine 150 mcg tablet 150 mcg PO DAILY THYROID 11/05/22 11/05/22 History lisinopril 20 mg tablet 20 mg PO DAILY BLOOD PRESSURE 11/05/22 11/05/22 History New Prescriptions to Start Prescriptions: Height: 1.73 m Weight: 99.427 kg Laboratory Results:: Laboratory Results - last 24 hr 11/05/22 11:50: POC Glucose 81 11/05/22 15:30: Hemoglobin A1c 5.7 11/05/22 15:30: Triglycerides 117, Cholesterol 74 L, LDL Cholesterol Direct < 30.00 L, VLDL Cholesterol 23, HDL Cholesterol 26 L, Cholesterol/HDL Ratio 2.8, TSH 0.07 L 11/05/22 15:30: Free T4 2.21 H 11/05/22 15:30: WBC 34.1 H* D, RBC 3.56 L, Hgb 10.4 L D, Hct 30.8 L, MCV 86.6, MCH 29.2, MCHC 33.8, RDW 16.0, Plt Count 346 D, MPV 8.2, Neut % (Auto) 93.6 H, Lymph % (Auto) 2.4 L, [place] % (Auto) 3.3, Eos % (Auto) 0.2, Baso % (Auto) 0.5, Neut # (Auto) 31.9 H, Lymph # (Auto) 0.8, [place] # (Auto) 1.1 H, Eos # (Auto) 0.1, Baso # (Auto) 0.2, Total Counted 100, Neutrophils % (Manual) 94 H, Band Neutrophils % 1.0, Lymphocytes % (Manual) 5 L, Platelet Estimate Normal, RBC Morphology Not Reportable, [place] Cells 1+ 11/05/22 15:30: Sodium 133 L, Potassium 4.2, Chloride 101, Carbon Dioxide 25, Anion Gap 11.2, BUN 42 H, Creatinine 2.40 H, Estimated Creat Clear 36, Estimated GFR 20 L, Est GFR ( Amer) 24 L, Glucose 85 D, Calcium 7.4 L, Magnesium 2.1, Troponin I 0.02, C-Reactive Protein 288.3 H 11/05/22 15:30: Lactate 2.7 H 11/05/22 15:30: ESR 26 11/05/22 16:28: POC Glucose 87 11/05/22 20:27: POC Glucose 127 H 11/05/22 22:45: Lactate 2.5 H 11/05/22 22:45: WBC 35.8 H*, RBC 3.36 L, Hgb 9.8 L, Hct 30.4 L, MCV 90.6, MCH 29.1, MCHC 32.1, RDW 15.6, Plt Count 409, MPV 9.1, Neut % (Auto) 93.3 H, Lymph % (Auto) 2.3 L, [place] % (Auto) 3.8, Eos % (Auto) 0.2, Baso % (Auto) 0.4, Neut # (Auto) 33.4 H, Lymph # (Auto) 0.8, [place] # (Auto) 1.4 H, Eos # (Auto) 0.1, Baso # (Auto) 0.1 11/05/22 22:45: Sodium 132 L, Potassium 3.8, Chloride 100, Carbon Dioxide 27, Anion Gap 8.8, BUN 42 H, Creatinine 2.70 H, Estimated Creat Clear 32, Estimated GFR 18 L*, Est GFR
--- NOTE | 2022-11-06 09:32 | EXP.PULM.CON ---
History of Present Illness History of present illness: 67-year-old female with reported past male history of GERD, CKD, CHF presented with worsening respiratory distress upon presentation. Patient saturating 70% on room air and currently admitted to the hospital further evaluation and pulmonary was consulted. [facility] Disclaimer: The information contained in this section may have been updated after the patient was seen, as this information can be updated by other users. Medical History (Updated 11/06/22 @ 10:29 by Gene Delacruz MD) Arthritis Cannot walk Cholecystitis with cholelithiasis Depression Diabetes Diabetes History of back pain HTN (hypertension) Hypothyroid Pneumonia Surgical History (Updated 11/04/22 @ 21:21 by Yin Yadav RN) History of back surgery Family History (Updated 11/04/22 @ 21:19 by Yin Yadav RN) Mother Family history of cancer Father Stroke Father Hypertension Social History (Updated 11/04/22 @ 21:25 by Yin Yadav RN) Smoking Status: Never smoker alcohol intake: never current occupational status: retired Travel in the last 8 weeks: None adopted: No caregiver/support person: Yes (YENY ALONSO/DAUGHTER) foster care: No household members: family housing: house lives independently: No marital status: number of children: 2 diet: diabetic well-balanced diet: rarely or never caffeine: Yes physical activity: none Review of Systems Review of Systems Review of systems (narrative): Review of systems and patient currently wearing a CPAP. Constitutional Constitutional: Reports body ache(s) and Reports fatigue Eyes Eyes: Reports irritation *Cardiovascular Cardiovascular: Reports dyspnea, Reports dyspnea on exertion and Reports orthopnea *Respiratory Respiratory: Reports chest congestion, Reports cough, Reports dyspnea, Reports dyspnea on exertion, Reports excessive phlegm production, Denies hemoptysis and Reports wheezing *Gastrointestinal Gastrointestinal: Denies abdominal pain *Musculoskeletal Musculoskeletal: Reports back pain, Reports myalgias and Reports other (No small joint swelling or Pain) Psychiatric Psychiatric: Denies homicidal ideation and Denies suicidal ideation Endocrine Endocrine: Reports fatigue Allergic/Immunologic Allergic/Immunologic: Reports wheezing Pulmonology Exam Inpatient Vital signs and Labs for Last 24 Hours: Temp Pulse Resp BP Pulse Ox FiO2 97.0 F L 81 22 82/56 L 96 70 11/06/22 07:37 11/06/22 07:37 11/06/22 07:37 11/06/22 07:37 11/06/22 07:47 11/06/22 07:47 Laboratory Results - last 24 hr 11/05/22 11:50: POC Glucose 81 11/05/22 15:30: Hemoglobin A1c 5.7 11/05/22 15:30: Triglycerides 117, Cholesterol 74 L, LDL Cholesterol Direct < 30.00 L, VLDL Cholesterol 23, HDL Cholesterol 26 L, Cholesterol/HDL Ratio 2.8, TSH 0.07 L 11/05/22 15:30: Free T4 2.21 H 11/05/22 15:30: WBC 34.1 H* D, RBC 3.56 L, Hgb 10.4 L D, Hct 30.8 L, MCV 86.6, MCH 29.2, MCHC 33.8, RDW 16.0, Plt Count 346 D, MPV 8.2, Neut % (Auto) 93.6 H, Lymph % (Auto) 2.4 L, [place] % (Auto) 3.3, Eos % (Auto) 0.2, Baso % (Auto) 0.5, Neut # (Auto) 31.9 H, Lymph # (Auto) 0.8, [place] # (Auto) 1.1 H, Eos # (Auto) 0.1, Baso # (Auto) 0.2, Total Counted 100, Neutrophils % (Manual) 94 H, Band Neutrophils % 1.0, Lymphocytes % (Manual) 5 L, Platelet Estimate Normal, RBC Morphology Not Reportable, [place] Cells 1+ 11/05/22 15:30: Sodium 133 L, Potassium 4.2, Chloride 101, Carbon Dioxide 25, Anion Gap 11.2, BUN 42 H, Creatinine 2.40 H, Estimated Creat Clear 36, Estimated GFR 20 L, Est GFR ( Amer) 24 L, Glucose 85 D, Calcium 7.4 L, Magnesium 2.1, Troponin I 0.02, C-Reactive Protein 288.3 H 11/05/22 15:30: Lactate 2.7 H 11/05/22 15:30: ESR 26 11/05/22 16:28: POC Glucose 87 11/05/22 20:27: POC Glucose 127 H 11/05/22 22:45: Lactate 2.5 H 11/05/22 22:45: WBC 35.8 H*, RBC 3.36 L, Hgb 9.8 L, Hct 30.4 L, MCV 90.6, MCH 29.1, MCHC 32.1, RDW 15.6, Plt
--- NOTE | 2022-11-06 09:38 | XR_ITS ---
FINAL REPORT CLINICAL HISTORY: PNM COMPARISON: 11/05/2022 FINDINGS: A single portable view of the chest was obtained. There is cardiomegaly and pulmonary vascular congestion. The mediastinum is within normal limits. There are worsening pulmonary opacities consistent with worsening pneumonia. The bony thorax is intact. IMPRESSION: Findings consistent with worsening pneumonia. Reviewed, Interpreted and Dictated by Wayne Villegas III, MD Transcribed by Moraima Mayes Authenticated and [facility]
--- NOTE | 2022-11-06 09:58 | HMH.OTEV ---
OT Inpatient Evaluation Rehab OT IP Evaluation Start: 11/06/22 08:00 Freq: ONCE Status: Active Protocol: Document 11/06/22 09:49 [facility] (Rec: 11/06/22 09:57 [facility] [id number]) Rehab OT IP Assessment Subjective History Pt was seen resting in bed upon arrivial. Pt was oriented x3 person, place, and . Pt was agreeable to engage in therapy evaluation. Pt was admitted to [facility] on 11/04/22 due to Shortness of breath. Pt reports that she was independent in all ADLs and IADL tasks. Pt reports that she lives with her daughter who assists her with cooking and cleaning tasks. Pt reports that she uses a walker for functional mobility. She reports that she is not able to drive and her daughter assists with her with grocery shopping. Pt has a past medical history of the following: Arthritis Cannot walk Cholecystitis with cholelithiasis Depression Diabetes Diabetes History of back pain HTN (hypertension) Hypothyroid Pt was left resting in bed with call lujan and all other needs within reach. Subjective I want to take this off. Objective Patient Orientation Person,Place,Birthday Upper Extremity Gross ROM Min Limitation <25% Shoulder ROM Limitations Muscle Weakness Elbow ROM Limitations Muscle Weakness Wrist Limitations of Range of Motion Muscle Weakness Bed Mobility bed mobility-scooting,bed mobility - supine/sit Assist Level Moderate x 2 (50% assist) decrease in endurance Yes Rehab OT IP prob,goals,plan Problems Date of Evaluation: 11/06/22 OT IP Problems Bed Mobility,Transfers,Balance ,Self care,Safety Rehab Potential Rehab Potential Good Equipment Needs Assistive Devices Rolling /
--- NOTE | 2022-11-06 10:00 | HMH.PTEV ---
Physical Therapy Evaluation Rehab PT IP Evaluation Start: 11/06/22 08:00 Freq: ONCE Status: Active Protocol: Document 11/06/22 09:51 [facility] (Rec: 11/06/22 10:00 [facility] [id number]) Subjective/History History History 67 yowf adm to [facility] with PNA and sepsis with hx of COPD. She is currently very lethargic, but oriented. Requiring Bi-PAP for oxygen support at this time. She reports she lives with daughter and uses a RW for all mobility. She requires assist with all ADLs at baseline. Subjective Subjective Pt currently very lethargic, able to answer orientation questions with slower reponse time. Some difficulty due lethargy and Bi-PAP noise. Rehab PT IP Eval Objective Appearance Patient Behavior Appropriate Patient Orientation Person,Place,Time Difficulty following instructions none Speech Pattern Clear Ambulation Patient Able to Ambulate No Balance Dynamic Sitting Balance Ability Poor Transfers Bed Transfer Ability Moderate x 2 (50% assist) Rehab PT IP prob,goals,plan Problems Date of Evaluation: 11/06/22 PT IP Problems Bed Mobility,Transfers Rehab Potential Rehab Potential Good Plan PT Intervention Plan Bed Mobility,Transfers, Therapeutic Exercise PT Plan Frequency Daily Duration LOS Discharge Goals Bed Transfer Ability Minimal x 2 (25% assist) Sit to Stand Chair Transfer Ability Minimal x 2 (25% assist) Discharge Plan PT Discharge Plan Pt is currently most appropriate for rehab placement once medically stable for d/c. G -code Required No Eval Complexity Eval Charge Codes 89789 - Moderate Complexity PHYSICIAN CERTIFICATION: I certify the specified therapy services for Angela Gayle are required, authorized, and reviewed every 30 days.
[2022-11-06 11:29] LABS: POC Glucose,Bedside 125 (70-110)
[2022-11-06 14:48] LABS: Lactic Acid 2.4 mmol/L (0.7-2.1)
[2022-11-06 17:00] LABS: POC Glucose,Bedside 229 (70-110)
[2022-11-06 18:21] LABS: Reflex Lactic Add Lactic Reflex
[2022-11-06 19:49] LABS: Lactic Acid Follow Up (RFLX 1) 2.8 mmol/L (0.7-2.1)
[2022-11-06 20:54] LABS: Reflex Lactic (2 hrs) Add Lactic Reflex
[2022-11-06 22:06] LABS: POC Glucose,Bedside 198 (70-110)
[2022-11-06 22:15] LABS: Lactic Acid Follow up (RFLX 2) 2.5 mmol/L (0.7-2.1)
[2022-11-07] VITALS (22 sets, daily range): BP systolic 91–149; BP diastolic 44–81; PULSE 66–85; RESP 15–29; TEMP 36.4–36.9; O2SAT 90–100; BMI 32.6
[2022-11-07 05:58] LABS: POC Glucose,Bedside 264 (70-110)
[2022-11-07 06:06] LABS: Basophils % 0.2 % (0.1-2.0); Hematocrit 31.1 % (37.0-47.0); Hemoglobin 9.9 g/dL (12.2-16.2); Lymphocytes # 1.1 K/mm3 (0.7-4.5); Lymphocytes % 4.5 % (10-50); Mean Corpuscular HGB Conc 31.9 g/dL (31.8-35.4); Mean Platelet Volume 7.8 fl (7.4-10.4); Monocytes # 0.9 K/mm3 (0.1-1.0); Monocytes % 3.6 % (1.7-9.3); Neutrophils # 22.4 K/mm3 (1.8-7.8); Neutrophils % 91.8 % (37.0-80.0); Platelet Count 362 K/mm3 (142-424); Red Blood Count 3.53 M/mm3 (4.20-5.40); Red Cell Distribution Width 15.9 % (11.5-17.5); White Blood Count 24.4 K/mm3 (4.8-10.8)
[2022-11-07 06:20] LABS: MANUAL DIFFERENTIAL MANUAL DIFFERENTIAL (MANUAL DIFF)
[2022-11-07 06:21] LABS: Blood Urea Nitrogen 57 mg/dl (7-17); Calcium 7.3 mg/dl (8.4-10.2); Carbon Dioxide 33 mmol/L (22.0-30.0); Creatinine Clearance Estimated 32 mL/min (50-200); Estimated Glomerular Filt Rate 18 ml/min (>60); GFR (African American) 21 ML/MIN (>60); Glucose 238 mg/dl (74-100); Potassium 3.1 mmoL/L (3.5-5.1); Sodium 131 mmol/L (136-145)
[2022-11-07 06:29] LABS: NT Pro Brain Natriuretic Pep. 8320 pg/mL (0-125)
[2022-11-07 06:36] LABS: Procalcitonin 7.42 ng/mL (0.0-2.0)
[2022-11-07 06:46] LABS: Anion Gap 10.1 mEq/L (5-15)
[2022-11-07 06:58] LABS: Anisocytosis 1+; Hypochromasia 1+; Lymphocytes % 7 % (10-50); Monocytes % 4 % (2-9); Neutrophils % 89 % (42-76); Total Cells Counted 100
[2022-11-07 06:59] LABS: Platelet Estimate Normal
--- NOTE | 2022-11-07 07:29 | EXP.ACUTE.PN ---
Subjective *Date: 11/07/22 *Time: 18:35 Interval history: Patient had decreased urine output overnight. Given 500 cc bolus over 2 hours this morning with continuation of sodium bicarbonate through the day. Patient tolerating CPAP. O2 sats dropped overnight with an event where she removed her CPAP but when it was put back on she had improvement in her saturations. Has become a little more responsive through the morning. Opening eyes to verbal commands. Responding yes and no to questions. 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 No fever, chest pain. Medical Exam Vital signs and Labs for Last 24 Hours: Vital Signs Temp Pulse Pulse Pulse Resp BP Pulse Ox 11/07/22 06:00 70 15 110/55 L 96 11/07/22 05:50 11/07/22 04:00 80 11/07/22 04:00 96 11/07/22 04:00 97.5 F L 11/07/22 00:00 70 11/06/22 20:00 80 11/07/22 02:32 11/07/22 02:00 72 22 96/55 L 98 11/07/22 00:00 97.7 F 11/06/22 20:00 68 20 124/73 97 11/06/22 22:00 72 18 108/52 L 98 11/06/22 20:00 98 11/06/22 23:15 76 11/06/22 23:15 76 11/06/22 23:15 11/06/22 19:52 97.6 F 11/06/22 16:00 78 98 11/06/22 16:00 77 11/06/22 18:00 82 22 100/51 L 98 11/06/22 16:00 78 22 121/63 96 11/06/22 14:00 72 22 98/43 L 100 11/06/22 18:06 79 11/06/22 18:06 80 11/06/22 18:06 93 L 11/06/22 18:06 11/06/22 16:00 97.4 F L 11/06/22 12:00 70 11/06/22 12:00 75 24 108/58 L 94 L 11/06/22 12:00 97.6 F 11/06/22 11:04 118 H 25 H 11/06/22 11:04 118 H 11/06/22 11:04 121 H 11/06/22 09:55 03/06/23 08:00 80 11/06/22 07:47 96 11/06/22 07:47 11/06/22 07:37 97.0 F L 81 22 82/56 L 81 L FiO2 11/07/22 06:00 11/07/22 05:50 60 11/07/22 04:00 11/07/22 04:00 11/07/22 04:00 11/07/22 00:00 11/06/22 20:00 11/07/22 02:32 60 11/07/22 02:00 11/07/22 00:00 11/06/22 20:00 11/06/22 22:00 11/06/22 20:00 11/06/22 23:15 11/06/22 23:15 11/06/22 23:15 50 11/06/22 19:52 11/06/22 16:00 11/06/22 16:00 11/06/22 18:00 11/06/22 16:00 11/06/22 14:00 11/06/22 18:06 11/06/22 18:06 11/06/22 18:06 50 11/06/22 18:06 50 11/06/22 16:00 11/06/22 12:00 11/06/22 12:00 11/06/22 12:00 11/06/22 11:04 11/06/22 11:04 11/06/22 11:04 11/06/22 09:55 50 11/06/22 08:00 11/06/22 07:47 70 11/06/22 07:47 70 11/06/22 07:37 Intake and Output 11/06/22 11/06/22 11/07/22 15:59 23:59 07:59 Intake Total 0 / 0 [id number] Output Total 0 / 125 100 / 125 200 / 200 Balance 0 / -125 -100 / -125 2787 Intake: Intake, Oral Amount 0 / 0 Intake, Total IV Amount 2987 Cefepime HCl 2 gm In 0.9 % 100 / 100 Sodium Chloride 100 ml @ 200 mls/hr IV Q12H [facility] Rx#:[id number] Sodium Bicarbonate 150 meq In 2888 / 2888 Dextrose 5 % in Water 1,000 ml @ 150 mls/hr IV .Q7H40M [facility] Rx# :[id number] Output: Output, Urine Amount 0 / 125 100 / 125 Output, Urine Amount (Catheter) 200 / 200 Gonzalez 200 / 200 Other: Number of Unmeasured Voids 0 0 0 Number of Urine Attends/Diapers 1 Number of Bowel Movements 1 Weight 99 kg 97.778 kg Patient Weight 11/07/22 23:59 Weight 97.778 kg Laboratory Results - last 24 hr 11/05/22 22:45: WBC 35.8 H*, RBC 3.36 L, Hgb 9.8 L, Hct 30.4 L, MCV 90.6, MCH 29.1, MCHC 32.1, RDW 15.6, Plt Count 409, MPV 9.1, Neut % (Auto) 93.3 H, Lymph % (Auto) 2.3 L, [place] % (Auto) 3.8, Eos % (Auto) 0.2, Baso % (Auto) 0.4, Neut # (Auto) 33.4 H, Lymph # (Auto) 0.8, [place] # (Auto) 1.4 H, Eos # (Auto) 0.1, Baso # (Auto) 0.1 11/05/22 22:45: Sodium 132 L, Potassium 3.8, Chloride 100, Carbon Dioxide 27, Anion Gap 8.8, BUN 42 H, Creatinine 2.70 H, Estimated Creat Clear 32, Es
[2022-11-07 08:14] LABS: Chloride 91 mmol/L (98-107)
--- NOTE | 2022-11-07 09:32 | EXP.PULM.PN ---
Subjective *Date: 11/07/22 *Time: 10:08 Interval history: Patient has acute respiratory event overnight where she took off her CPAP with significant desaturations which improved after initiating the patient on CPAP. Pulmonology Exam Inpatient Vital signs and Labs for Last 24 Hours: Temp Pulse Resp BP Pulse Ox FiO2 98.4 F 74 26 H 136/69 100 60 11/07/22 08:00 11/07/22 08:00 11/07/22 08:00 11/07/22 08:00 11/07/22 08:00 11/07/22 05:50 Laboratory Results - last 24 hr 11/06/22 11:22: POC Glucose 125 H 11/06/22 14:15: Lactate 2.4 H 11/06/22 16:53: POC Glucose 229 H 11/06/22 19:01: Lactate 2.8 H 11/06/22 21:19: POC Glucose 198 H 11/06/22 21:43: Lactate 2.5 H 11/07/22 05:32: WBC 24.4 H* D, RBC 3.53 L, Hgb 9.9 L, Hct 31.1 L, MCV 88.0, MCH 28.0, MCHC 31.9, RDW 15.9, Plt Count 362, MPV 7.8, Neut % (Auto) 91.8 H, Lymph % (Auto) 4.5 L, [place] % (Auto) 3.6, Eos % (Auto) 0.0 L, Baso % (Auto) 0.2, Neut # (Auto) 22.4 H, Lymph # (Auto) 1.1, [place] # (Auto) 0.9, Eos # (Auto) 0.0, Baso # (Auto) 0.0, Total Counted 100, Neutrophils % (Manual) 89 H, Lymphocytes % (Manual) 7 L, Monocytes % (Manual) 4, Platelet Estimate Normal, Hypochromasia 1+, Anisocytosis 1+ 11/07/22 05:32: Sodium 131 L, Potassium 3.1 L, Chloride 91 L, Carbon Dioxide 33 H, Anion Gap 10.1, BUN 57 H D, Creatinine 2.70 H, Estimated Creat Clear 32, Estimated GFR 18 L*, Est GFR ( Amer) 21 L, Glucose 238 H, Calcium 7.3 L, NT-Pro-B Natriuret Pep 8320 H, Procalcitonin 7.42 H 11/07/22 05:42: POC Glucose 264 H I & O for Labs for Last 24 Hours: Intake & Output 11/04/22 11/05/22 11/06/22 11/07/22 23:59 23:59 23:59 23:59 Intake Total 980 / 980 0 / 0 2988 / 2988 Output Total 300 / 300 125 / 125 200 / 200 Balance 680 / 680 -125 / -125 2788 / 2788 Weight 211 lb 8 oz 216 lb 6.4 oz 218 lb 4.122 oz 215 lb 9 oz Microbiology Reports for the Last 24 Hours: Microbiology 11/04/22 18:37 Blood Blood Culture - Preliminary Gram Positive Cocci 11/04/22 18:37 Blood Blood Culture - Preliminary Gram Positive Cocci Constitutional: Present severe distress Head: Present normocephalic and atraumatic ENT: Present normal exam, normal oropharynx and mucous membranes moist Neck: Present normal inspection and full ROM Respiratory: Present prolonged expiratory phase, respiratory distress, rhonchi, crackles and able to speak in complete sentences Cardiac: Present S1/S2, Tachycardia and radial pulses present GI: Present soft and distention; Absent tenderness or guarding Rectal (female): Present deferred (female): Present deferred Skin: Present intact; Absent cyanosis or jaundice Neuro: Present alert and awake; Absent oriented x 3 Extremities: Present normal inspection; Absent clubbing or cyanosis Psychiatric: Present normal affect and cooperative Assessment and Plan *Assessment and plan (1) Sepsis: Status: Acute Category: Medical Code(s): A41.9 - Sepsis, unspecified organism (2) Acute respiratory failure with hypoxia: Status: Acute Category: Medical Code(s): J96.01 - Acute respiratory failure with hypoxia (3) Pneumonia: Status: Acute Category: Medical Code(s): J18.9 - Pneumonia, unspecified organism Plan 67-year-old female with reported past male history of GERD, CKD, CHF presented with worsening respiratory distress upon presentation. Patient saturating 70% on room air and currently admitted to the hospital further evaluation and pulmonary was consulted. Significant leukocytosis upon admission, getting worse now at 35.8. CT chest on admission reviewed, bilateral diffuse groundglass airspace disease with right lower lobe dense consolidation, right greater than left airspace disease. Blood cultures growing gram-positive cocci, PCR positive for strep pneumonia. Respiratory viral PCR positive for metapneumovirus Patient was initiated on ceftriaxone and azithromycin upon ad
[2022-11-07 09:46] LABS: POC Glucose,Bedside 214 (70-110)
--- NOTE | 2022-11-07 11:32 | EXP.PHA.CONS ---
Pharmacy Consult Date: 11/07/22 Time: 11:32 Referring provider: DR. ORELLANA Reason for Consult:: VANCOMYCIN DOSE CHANGE Allergies Allergy/AdvReac Type Severity Reaction Status Date / Time Penicillins Allergy Mild Nausea Verified 11/05/22 08:33 silver Allergy Mild Unknown Verified 11/05/22 08:33 [From Tegaderm AG Mesh] allergy reaction adhesive tape Allergy Rash Verified 09/13/21 08:34 morphine AdvReac Intermediate Nausea Verified 11/05/22 08:33 Home Medications Medication Instructions Recorded Confirmed Type atorvastatin 40 mg tablet 40 mg PO HS Cholesterol 08/16/21 11/05/22 History dicyclomine 20 mg tablet 20 mg PO TID stomach pain 08/16/21 11/05/22 History fluticasone furoate 200 200 mcg IH DAILY Asthma 08/16/21 11/05/22 History mcg/actuation blister powder for inhalation hydrochlorothiazide 50 mg tablet 50 mg PO DAILY Fluid 08/16/21 11/05/22 History mirabegron 50 mg tablet,extended 50 mg PO DAILY bladder spasms 08/16/21 11/05/22 History release 24 hr primidone 50 mg tablet 150 mg PO BID seizures 08/16/21 11/05/22 History propranolol 10 mg tablet 10 mg PO BID High blood pressure 08/16/21 11/05/22 History albuterol sulfate 2.5 mg/3 mL 2.5 mg inhalation Q6HP PRN 11/05/22 11/05/22 History (0.083 %) solution for nebulization breathing trouble amlodipine 5 mg tablet 5 mg PO DAILY High blood pressure 11/05/22 11/05/22 History brimonidine 0.2 % eye drops 1 drp Eye-Both BID Glaucoma 11/05/22 11/05/22 History diclofenac sodium 75 mg 75 mg PO BID arthritis pain 11/05/22 11/05/22 History tablet,delayed release esomeprazole magnesium 40 mg 40 mg PO BID acid reflux 11/05/22 11/05/22 History capsule,delayed release fluoxetine 40 mg capsule 40 mg PO BID Depression 11/05/22 11/05/22 History hydralazine 50 mg tablet 50 mg PO TID High blood pressure 11/05/22 11/05/22 History lansoprazole 30 mg capsule,delayed 30 mg PO BID acid reflux 11/05/22 11/05/22 History release levothyroxine 150 mcg tablet 150 mcg PO DAILY hypothyroidism 11/05/22 11/05/22 History lisinopril 20 mg tablet 20 mg PO DAILY High blood pressure 11/05/22 11/05/22 History New Prescriptions to Start Prescriptions: Height: 1.73 m Weight: 97.778 kg Laboratory Results:: Laboratory Results - last 24 hr 11/06/22 14:15: Lactate 2.4 H 11/06/22 16:53: POC Glucose 229 H 11/06/22 19:01: Lactate 2.8 H 11/06/22 21:19: POC Glucose 198 H 11/06/22 21:43: Lactate 2.5 H 11/07/22 05:32: WBC 24.4 H* D, RBC 3.53 L, Hgb 9.9 L, Hct 31.1 L, MCV 88.0, MCH 28.0, MCHC 31.9, RDW 15.9, Plt Count 362, MPV 7.8, Neut % (Auto) 91.8 H, Lymph % (Auto) 4.5 L, [place] % (Auto) 3.6, Eos % (Auto) 0.0 L, Baso % (Auto) 0.2, Neut # (Auto) 22.4 H, Lymph # (Auto) 1.1, [place] # (Auto) 0.9, Eos # (Auto) 0.0, Baso # (Auto) 0.0, Total Counted 100, Neutrophils % (Manual) 89 H, Lymphocytes % (Manual) 7 L, Monocytes % (Manual) 4, Platelet Estimate Normal, Hypochromasia 1+, Anisocytosis 1+ 11/07/22 05:32: Sodium 131 L, Potassium 3.1 L, Chloride 91 L, Carbon Dioxide 33 H, Anion Gap 10.1, BUN 57 H D, Creatinine 2.70 H, Estimated Creat Clear 32, Estimated GFR 18 L*, Est GFR ( Amer) 21 L, Glucose 238 H, Calcium 7.3 L, NT-Pro-B Natriuret Pep 8320 H, Procalcitonin 7.42 H 11/07/22 05:42: POC Glucose 264 H 11/07/22 08:22: POC Glucose 214 H Medical History: Medical History (Updated 11/06/22 @ 10:29 by Gene Delacruz MD) Arthritis Cannot walk Cholecystitis with cholelithiasis Depression Diabetes Diabetes History of back pain HTN (hypertension) Hypothyroid Pneumonia Assessment and Plan Assessment and plan all Dx Assessment and Plan for all problems:: Pharmacokinetic dosing service Age: 67 yo Serum creatinine: 2.7 mg/dL Height: 68.1 Inches Weight (kg): 97.8 Assessment: IBW (kg): 64.13 Dosing wt(kg): 97.8 Estimated Creatinine clearance (ml/min): 20.7 CRCL method: Cockcroft and Gault using ibw(default). Drug selected: Vancomyci
[2022-11-07 14:02] LABS: Blood Urea Nitrogen 56 mg/dl (7-17); Calcium 7.1 mg/dl (8.4-10.2); Carbon Dioxide 34 mmol/L (22.0-30.0); Chloride 93 mmol/L (98-107); Creatinine Clearance Estimated 32 mL/min (50-200); Estimated Glomerular Filt Rate 18 ml/min (>60); GFR (African American) 21 ML/MIN (>60); Glucose 142 mg/dl (74-100); Sodium 131 mmol/L (136-145)
[2022-11-07 16:49] LABS: Legionella pneumophila Urinary Negative (Negative)
[2022-11-07 17:06] LABS: POC Glucose,Bedside 141 (70-110)
--- NOTE | 2022-11-07 19:01 | PC.NURSE ---
The patient has remained drowsy and sleepy throughout the shift. She was on CPAP through the day and her oxygen sats have remained above 95% throughout the shift. This morning her serum potassium was low at 3.1, the hospitalist ordered 2 bags of 10 Meq supplemental IV potassium, which were infused. A repeat potassium was still low at 3.0 and the hospitalist was informed. The plan is to discontinue the sodium bicarbonate infusion once the current bag completes infusing. We are closely monitoring her urine output and have so far given a 500ml saline bolus. The plan is to continue with boluses if she records low blood pressures overnight.
--- NOTE | 2022-11-07 21:14 | PC.NURSE ---
attempted to give pt pills crushed in apple sauce but pt spits everything back out, informed pt needs to take the pills and not spit them back out but pt not following commands at this time
--- NOTE | 2022-11-07 22:24 | PC.NURSE ---
pt very agitated, pulling everything off and will not keep gown or mittens on, pt removed IV right AC, and does not follow commands, notified BRENDA Kelly, having sitter sit with pt 1 to 1 at this time
[2022-11-07 23:16] LABS: Chloride 89 mmol/L (98-107); Potassium 3.2 mmoL/L (3.5-5.1); Sodium 134 mmol/L (136-145)
--- NOTE | 2022-11-07 23:17 | PC.NURSE ---
[facility] down, abg result placed in chart for review
[2022-11-07 23:19] LABS: Anion Gap 11.2 mEq/L (5-15); Blood Urea Nitrogen 55 mg/dl (7-17); Calcium 7.3 mg/dl (8.4-10.2); Carbon Dioxide 37 mmol/L (22.0-30.0); Creatinine Clearance Estimated 34 mL/min (50-200); Estimated Glomerular Filt Rate 19 ml/min (>60); GFR (African American) 23 ML/MIN (>60); Glucose 149 mg/dl (74-100)
--- NOTE | 2022-11-07 23:31 | EXP.EVENT.NO ---
2200 Called to patient bedside by RN Mitra, patient pulling at oxygen, removed iv. Order placed for 1:1 and assessed patient. 2300 Called to patient bedside patient oxygen saturation in the 70's on the monitor. Pulmonary MD called and ABG ordered. Discussed results of ABG and plan for care with PulmonaryMD. Patient on CPAP at 12 cm H2O with FiO2 titrated up from 55% to 100% (pO2 on ABG in the 30's) . Currently SpO2 on monitor is 94%. If patient de-saturates again plan will be for intubation. Patient's daughter Christina called [phone] and informed of the events and possible need for intubation. She verbalized understanding and agreement with intubation if needed. 0600 Patient remained in high 90's to 100% spO2 on CPAP 12 cm H20, FiO2 100%. Sitter at bedside.
--- NOTE | 2022-11-07 23:39 | PC.NURSE ---
pt desatted, unable to get good pleth even when changing sites, pt very agitated, notified BRENDA Kelly and RT both came to bedside, abg obtained, neb treatment given and increased cpap setting to 100%; abg results on 100% called to MD Lua, instructed by MD that if pt desats again to call anesthesia and have them intubate pt and start propofol and fentanyl for sedation if intubated
[2022-11-08] VITALS (27 sets, daily range): BP systolic 92–128; BP diastolic 37–66; PULSE 55–90; RESP 20–30; TEMP 35.9–37; O2SAT 92–100; BMI 33.8
[2022-11-08 05:41] LABS: POC Glucose,Bedside 103 (70-110)
[2022-11-08 05:50] LABS: ABG Base Excess 7.9 mmol/L (-2.4-2.3); ABG HCO3 31.9 mmhg (22.0-26.0); ABG Oxygen Saturation 68 % (90-100); ABG PCO2 47.1 mmhg (35.0-45.0); ABG PH 7.45 mmol/L (7.35-7.45); ABG TCO2 33.4 mmhg (23-27)
[2022-11-08 06:06] LABS: POC Glucose,Bedside 174 (70-110)
[2022-11-08 06:47] LABS: Basophils % 0.2 % (0.1-2.0); Eosinophils # 0.1 K/mm3 (0.0-0.4); Eosinophils % 0.3 % (0.1-12.0); Hematocrit 29.7 % (37.0-47.0); Hemoglobin 9.7 g/dL (12.2-16.2); Lymphocytes % 6.1 % (10-50); Mean Corpuscular HGB Conc 32.6 g/dL (31.8-35.4); Mean Platelet Volume 8.1 fl (7.4-10.4); Monocytes # 0.7 K/mm3 (0.1-1.0); Monocytes % 4.4 % (1.7-9.3); Neutrophils # 14.7 K/mm3 (1.8-7.8); Platelet Count 255 K/mm3 (142-424); Red Blood Count 3.34 M/mm3 (4.20-5.40); Red Cell Distribution Width 15.9 % (11.5-17.5); White Blood Count 16.5 K/mm3 (4.8-10.8)
[2022-11-08 06:49] LABS: MANUAL DIFFERENTIAL MANUAL DIFFERENTIAL (MANUAL DIFF)
[2022-11-08 06:58] LABS: Chloride 92 mmol/L (98-107); Potassium 3.3 mmoL/L (3.5-5.1)
[2022-11-08 06:59] LABS: Alanine Aminotransferase 55 U/L (12-78); Albumin Level 2.3 g/dl (3.5-5.0); Albumin/Globulin Ratio 0.7 (1.1-1.8); Alkaline Phosphatase 151 U/L (38-126); Anion Gap 6.3 mEq/L (5-15); Aspartate Amino Transferase 70 U/L (14-36); Bilirubin,Total 0.5 mg/dl (0.2-1.3); Blood Urea Nitrogen 57 mg/dl (7-17); Carbon Dioxide 37 mmol/L (22.0-30.0); Creatinine Clearance Estimated 35 mL/min (50-200); Estimated Glomerular Filt Rate 19 ml/min (>60); GFR (African American) 23 ML/MIN (>60); Globulin 3.1 g/dL (1.3-3.2); Glucose 107 mg/dl (74-100); Sodium 132 mmol/L (136-145); Total Protein,Serum 5.4 g/dl (6.3-8.2)
[2022-11-08 07:02] LABS: Magnesium 1.8 mg/dl (1.6-2.3)
[2022-11-08 07:10] LABS: Anisocytosis 1+; Hypochromasia 1+; Lymphocytes % 15 % (10-50); Monocytes % 3 % (2-9); Neutrophils % 82 % (42-76); Platelet Estimate Normal; Total Cells Counted 100
[2022-11-08 07:25] LABS: NT Pro Brain Natriuretic Pep. 6580 pg/mL (0-125)
[2022-11-08 07:36] LABS: Oxygen 55 %; Source R BRACHIAL
[2022-11-08 07:37] LABS: ABG PO2 34.6 mmhg (80-100)
--- NOTE | 2022-11-08 07:53 | EXP.ACUTE.PN ---
Subjective *Date: 11/08/22 *Time: 11:58 Interval history: Patient had a rough night, see event note for full details. Was more agitated necessitated a sitter. Required increase on FiO2 due to respiratory distress. Still on CPAP this morning. Kidney function marginally better with creatinine at 2.5. Seeing slight improvement in urine output. Has had no p.o. intake of fluids or nutrition. Remains afebrile. Medical Exam Vital signs and Labs for Last 24 Hours: Vital Signs Temp Pulse Pulse Resp BP Pulse Ox FiO2 11/08/22 07:31 96.7 F L 11/08/22 06:00 74 11/08/22 06:00 71 11/08/22 06:00 100 11/08/22 06:00 84 20 113/54 L 94 L 100 11/08/22 04:00 97.9 F 11/08/22 04:00 74 20 100/57 L 96 100 11/08/22 03:51 70 11/08/22 03:29 96 11/08/22 02:00 75 22 102/58 L 93 L 100 11/07/22 20:00 70 11/08/22 00:00 80 11/08/22 01:54 100 11/08/22 00:00 78 24 92/57 L 100 100 11/07/22 23:37 97.7 F 11/07/22 23:36 100 11/07/22 23:35 81 11/07/22 23:35 81 11/07/22 22:00 85 24 149/70 H 90 L 11/07/22 20:00 75 20 124/64 95 55 11/07/22 20:00 96 11/07/22 19:53 97.7 F 11/07/22 16:00 70 11/07/22 18:06 66 11/07/22 18:06 66 11/07/22 18:06 93 L 55 11/07/22 18:06 55 11/07/22 18:00 66 23 91/44 L 95 11/07/22 16:00 100 11/07/22 16:00 71 22 102/72 L 100 11/07/22 12:00 70 11/07/22 14:00 68 23 115/63 100 11/07/22 12:00 68 20 122/71 100 11/07/22 10:00 74 17 139/81 11/07/22 11:49 98.1 F 69 20 130/69 100 11/07/22 08:00 100 11/07/22 11:26 71 11/07/22 11:26 68 11/07/22 11:26 55 11/07/22 10:00 55 11/07/22 09:50 50 11/07/22 08:00 70 11/07/22 08:00 98.4 F 74 26 H 136/69 100 Intake and Output 11/07/22 11/07/22 11/08/22 15:59 23:59 07:59 Intake Total 1239 / 4227 650 / 650 Output Total 0 / 450 250 / 450 250 / 250 Balance 0 / 3777 989 / 3777 400 / 400 Intake: Intake, Total IV Amount 1239 / 4227 650 / 650 KCl 10mEq/100ml 100 ml @ 100 300 / 300 mls/hr IV Q1H [facility] Rx#:[id number] Piperacillin/Tazo 3.375 gm In 0 39 / 39 50 / 50 .9 % Sodium Chloride 50 ml @ 100 mls/hr IV Q6H [facility] Rx#: [id number] Sodium Bicarbonate 150 meq In 1200 / 4088 300 / 300 Dextrose 5 % in Water 1,000 ml @ 150 mls/hr IV .Q7H40M [facility] Rx# :[id number] Output: Output, Urine Amount 0 / 250 250 / 250 250 / 250 Other: Number of Voids 0 0 Number of Unmeasured Voids 0 0 0 Weight 97.778 kg 101.378 kg Patient Weight 11/08/22 23:59 Weight 101.378 kg Laboratory Results - last 24 hr 11/04/22 20:40: Ur L.pneumophila Ag Negative 11/07/22 05:32: Chloride 91 L 11/07/22 08:22: POC Glucose 214 H 11/07/22 13:45: Sodium 131 L, Potassium 3.0 L, Chloride 93 L, Carbon Dioxide 34 H, Anion Gap 7.0, BUN 56 H, Creatinine 2.70 H, Estimated Creat Clear 32, Estimated GFR 18 L*, Est GFR ( Amer) 21 L, Glucose 142 H D, Calcium 7.1 L 11/07/22 16:40: POC Glucose 141 H 11/07/22 20:00: POC Glucose 174 H 11/07/22 23:00: Sodium 134 L, Potassium 3.2 L, Chloride 89 L, Carbon Dioxide 37 H, Anion Gap 11.2, BUN 55 H, Creatinine 2.50 H, Estimated Creat Clear 34, Estimated GFR 19 L*, Est GFR ( Amer) 23 L, Glucose 149 H, Calcium 7.3 L 11/07/22 23:16: Specimen Source R brachial, O2 % 55, ABG pH 7.45, ABG pCO2 47.1 H, ABG pO2 34.6 L, ABG HCO3 31.9 H, ABG Total CO2 33.4 H, ABG O2 Saturation 68 L*, ABG Base Excess 7.9 H, Tidal Volume cpap 12 11/08/22 05:26: POC Glucose 103 11/08/22 06:25: WBC 16.5 H D, RBC 3.34 L, Hgb 9.7 L, Hct 29.7 L, MCV 89.0, MCH 29.0, MCHC 32.6, RDW 15.9, Plt Count 255 D, MPV 8.1, Neut % (Auto) 89.0 H, Lymph % (Auto) 6.1 L, [place] % (Auto) 4.4, Eos % (Auto) 0.3, Baso % (Auto) 0.2, Neut # (Auto) 14.7 H,
--- NOTE | 2022-11-08 08:01 | XR_ITS ---
FINAL REPORT CLINICAL HISTORY: Confirm PICC line placement COMPARISON: 11/06/2021 FINDINGS: SINGLE-VIEW CHEST The heart size is normal. The mediastinum is normal. New, right PICC line tip terminates in the SVC. There are persistent pulmonary opacities, likely bilateral pneumonia. There is no pneumothorax. IMPRESSION: PICC line tip terminates in the SVC. Persistent pulmonary opacities, likely bilateral pneumonia. Reviewed, Interpreted and Dictated by Wayne Villegas III, MD Transcribed by Carole Gardner Authenticated and [facility]
--- NOTE | 2022-11-08 09:19 | PC.NURSE ---
when assessing pt she will open her eyes when he name is spoken. pt will not follow commands/directions. pt will not speak/respond to staff.
--- NOTE | 2022-11-08 09:43 | PC.NURSE ---
0910 PICC line in good position per arlene Potter to use.
--- NOTE | 2022-11-08 11:26 | DIET.NUTRFU ---
Patient continues on bipap tx, unable to take off long enough to eat. Cardiac diet is ordered when medically feasible to consume. She has receiving IVF for hydration, labs reviewed, Cr is at baseline at 2.5, Na 132L and potassium 3.3L. ABT tx in place and WBC improving. Will continue to monitor. Supplements are also already in place for calorie replacement when able to take orally. LBM 11/07. Gonzalez in place to monitor urine output. Diuretic tx was provided on 11/04 and 11/05.
[2022-11-08 11:58] LABS: POC Glucose,Bedside 132 (70-110)
[2022-11-08 12:05] LABS: ABG Base Excess 5.8 mmol/L (-2.4-2.3); ABG Oxygen Saturation 90 % (90-100); ABG PCO2 38.1 mmhg (35.0-45.0); ABG PO2 56.1 mmhg (80-100); ABG TCO2 30.1 mmhg (23-27); Oxygen 75 %; Source L BRACHIAL; Tidal Volume CPAP 12
--- NOTE | 2022-11-08 13:03 | EXP.PULM.PN ---
Subjective *Date: 11/08/22 *Time: 13:08 Interval history: Acute respiratory events overnight with progressively worsening respiratory distress. Guarded prognosis. Pulmonology Exam Inpatient Vital signs and Labs for Last 24 Hours: Temp Pulse Resp BP Pulse Ox FiO2 97.9 F 61 20 123/56 L 97 75 11/08/22 11:40 11/08/22 10:58 11/08/22 10:00 11/08/22 10:00 11/08/22 10:00 11/08/22 10:58 Laboratory Results - last 24 hr 11/04/22 20:40: Ur L.pneumophila Ag Negative 11/07/22 13:45: Sodium 131 L, Potassium 3.0 L, Chloride 93 L, Carbon Dioxide 34 H, Anion Gap 7.0, BUN 56 H, Creatinine 2.70 H, Estimated Creat Clear 32, Estimated GFR 18 L*, Est GFR ( Amer) 21 L, Glucose 142 H D, Calcium 7.1 L 11/07/22 16:40: POC Glucose 141 H 11/07/22 20:00: POC Glucose 174 H 11/07/22 23:00: Sodium 134 L, Potassium 3.2 L, Chloride 89 L, Carbon Dioxide 37 H, Anion Gap 11.2, BUN 55 H, Creatinine 2.50 H, Estimated Creat Clear 34, Estimated GFR 19 L*, Est GFR ( Amer) 23 L, Glucose 149 H, Calcium 7.3 L 11/07/22 23:16: Specimen Source R brachial, O2 % 55, ABG pH 7.45, ABG pCO2 47.1 H, ABG pO2 34.6 L, ABG HCO3 31.9 H, ABG Total CO2 33.4 H, ABG O2 Saturation 68 L*, ABG Base Excess 7.9 H, Tidal Volume cpap 12 11/08/22 05:26: POC Glucose 103 11/08/22 06:25: WBC 16.5 H D, RBC 3.34 L, Hgb 9.7 L, Hct 29.7 L, MCV 89.0, MCH 29.0, MCHC 32.6, RDW 15.9, Plt Count 255 D, MPV 8.1, Neut % (Auto) 89.0 H, Lymph % (Auto) 6.1 L, [place] % (Auto) 4.4, Eos % (Auto) 0.3, Baso % (Auto) 0.2, Neut # (Auto) 14.7 H, Lymph # (Auto) 1.0, [place] # (Auto) 0.7, Eos # (Auto) 0.1, Baso # (Auto) 0.0, Total Counted 100, Neutrophils % (Manual) 82 H, Lymphocytes % (Manual) 15, Monocytes % (Manual) 3, Platelet Estimate Normal, Hypochromasia 1+, Anisocytosis 1+ 11/08/22 06:25: Magnesium 1.8 D 11/08/22 06:25: Sodium 132 L, Potassium 3.3 L, Chloride 92 L, Carbon Dioxide 37 H, Anion Gap 6.3, BUN 57 H, Creatinine 2.50 H, Estimated Creat Clear 35, Estimated GFR 19 L*, Est GFR ( Amer) 23 L, Glucose 107 H D, Calcium 7.0 L, Total Bilirubin 0.5, AST 70 H D, ALT 55 D, Alkaline Phosphatase 151 H, Total Protein 5.4 L, Albumin 2.3 L, Globulin 3.1, Albumin/Globulin Ratio 0.7 L 11/08/22 06:25: NT-Pro-B Natriuret Pep 6580 H 11/08/22 11:48: POC Glucose 132 H 11/08/22 12:04: Specimen Source L brachial, O2 % 75, ABG pH 7.50 H, ABG pCO2 38.1, ABG pO2 56.1 L, ABG HCO3 29.0 H, ABG Total CO2 30.1 H, ABG O2 Saturation 90, ABG Base Excess 5.8 H, Tidal Volume Cpap 12 I & O for Labs for Last 24 Hours: Intake & Output 11/05/22 11/06/22 11/07/22 11/08/22 23:59 23:59 23:59 23:59 Intake Total 980 / 980 0 / 0 4227 / 4227 1150 / 1150 Output Total 300 / 300 125 / 125 450 / 450 350 / 350 Balance 680 / 680 -125 / -125 3777 / 3777 800 / 800 Weight 216 lb 6.4 oz 218 lb 4.122 oz 215 lb 9 oz 223 lb 8 oz Microbiology Reports for the Last 24 Hours: Microbiology 11/04/22 18:37 Blood Blood Culture - Final Streptococcus pneumoniae 11/04/22 18:37 Blood Blood Culture - Final Streptococcus pneumoniae 11/05/22 22:45 Blood Blood Culture - Preliminary NO GROWTH AFTER 48 HOURS 11/05/22 22:45 Blood Blood Culture - Preliminary NO GROWTH AFTER 48 HOURS Constitutional: Present severe distress Head: Present normocephalic and atraumatic ENT: Present normal exam, normal oropharynx and mucous membranes moist Neck: Present normal inspection and full ROM Respiratory: Present prolonged expiratory phase, respiratory distress, rhonchi, crackles and diminished air movement; Absent able to speak in complete sentences Cardiac: Present S1/S2, Tachycardia and radial pulses present GI: Present soft and distention; Absent tenderness or guarding Rectal (female): Present deferred (female): Present deferred Skin: Present intact; Absent cyanosis or jaundice Neuro: Present awake; Absent alert or oriented x 3 Extremities: Prese
--- NOTE | 2022-11-08 14:20 | PC.NURSE ---
1225 Fio2 increased to 100% on cpap per order from Dr Delacruz. 1410 Fio2 decreased to 80% by Dr Delacruz
--- NOTE | 2022-11-08 16:08 | PC.NURSE ---
courtesy tech round: pt is lying left side lateral resting. Call light is within reach.
[2022-11-08 17:07] LABS: POC Glucose,Bedside 129 (70-110)
[2022-11-08 18:21] LABS: Chloride 92 mmol/L (98-107); Sodium 133 mmol/L (136-145)
[2022-11-08 18:22] LABS: Potassium 3.5 mmoL/L (3.5-5.1)
[2022-11-08 18:24] LABS: Blood Urea Nitrogen 59 mg/dl (7-17); Creatinine Clearance Estimated 39 mL/min (50-200); Estimated Glomerular Filt Rate 21 ml/min (>60); GFR (African American) 26 ML/MIN (>60)
[2022-11-08 18:25] LABS: Anion Gap 8.5 mEq/L (5-15); Carbon Dioxide 36 mmol/L (22.0-30.0); Glucose 124 mg/dl (74-100)
[2022-11-08 20:24] LABS: POC Glucose,Bedside 135 (70-110)
[2022-11-09] VITALS (25 sets, daily range): BP systolic 95–136; BP diastolic 52–71; PULSE 69–800; RESP 18–35; TEMP 36.2–36.7; O2SAT 92–100; BMI 34.7
--- NOTE | 2022-11-09 00:30 | PC.NURSE ---
COURTESY ROUND- PATIENT RESTING COMFORTABLY WITH CALL LIGHT WITHIN REACH .TRASH EMPTIED
--- NOTE | 2022-11-09 03:08 | PC.NURSE ---
notified BRENDA Kelly of pt's uop of 100mL for 8 hours, INTERMEDIATE ACCOUNTANT to order LR bolus
--- NOTE | 2022-11-09 04:20 | PC.NURSE ---
COURTESY ROUND- PATIENT SLEEPING COMFORTABLY. TRASH EMPTIED
[2022-11-09 06:12] LABS: POC Glucose,Bedside 117 (70-110)
[2022-11-09 06:40] LABS: Magnesium 1.9 mg/dl (1.6-2.3)
[2022-11-09 06:41] LABS: Alanine Aminotransferase 45 U/L (12-78); Albumin Level 2.1 g/dl (3.5-5.0); Albumin/Globulin Ratio 0.7 (1.1-1.8); Alkaline Phosphatase 133 U/L (38-126); Aspartate Amino Transferase 58 U/L (14-36); Bilirubin,Total 0.6 mg/dl (0.2-1.3); Blood Urea Nitrogen 60 mg/dl (7-17); Calcium 6.9 mg/dl (8.4-10.2); Carbon Dioxide 36 mmol/L (22.0-30.0); Chloride 94 mmol/L (98-107); Creatinine Clearance Estimated 36 mL/min (50-200); Estimated Glomerular Filt Rate 19 ml/min (>60); GFR (African American) 23 ML/MIN (>60); Globulin 2.9 g/dL (1.3-3.2); Glucose 107 mg/dl (74-100); Potassium 3.2 mmoL/L (3.5-5.1)
[2022-11-09 06:43] LABS: Basophils % 0.2 % (0.1-2.0); Eosinophils # 0.2 K/mm3 (0.0-0.4); Neutrophils # 14.1 K/mm3 (1.8-7.8)
[2022-11-09 06:51] LABS: NT Pro Brain Natriuretic Pep. 4690 pg/mL (0-125)
[2022-11-09 06:54] LABS: Eosinophils % 1.2 % (0.1-12.0); Hematocrit 24.8 % (37.0-47.0); Lymphocytes # 0.8 K/mm3 (0.7-4.5); Lymphocytes % 5.2 % (10-50); Mean Corpuscular HGB Conc 33.6 g/dL (31.8-35.4); Mean Corpuscular Hemoglobin 28.9 pg (27.0-31.2); Mean Corpuscular Volume 86.2 fl (81-99); Mean Platelet Volume 7.8 fl (7.4-10.4); Monocytes # 0.3 K/mm3 (0.1-1.0); Monocytes % 2.2 % (1.7-9.3); Neutrophils % 91.2 % (37.0-80.0); Platelet Count 169 K/mm3 (142-424); Red Blood Count 2.88 M/mm3 (4.20-5.40); Red Cell Distribution Width 15.8 % (11.5-17.5); White Blood Count 15.5 K/mm3 (4.8-10.8)
[2022-11-09 06:57] LABS: Hemoglobin 8.3 g/dL (12.2-16.2)
[2022-11-09 06:59] LABS: MANUAL DIFFERENTIAL MANUAL DIFFERENTIAL (MANUAL DIFF)
[2022-11-09 08:13] LABS: Eosinophils % 1 % (0-3); Lymphocytes % 8 % (10-50); Monocytes % 2 % (2-9); Neutrophils % 89 % (42-76); Total Cells Counted 100
[2022-11-09 08:14] LABS: Platelet Estimate Normal; RBC Morphology Normal
[2022-11-09 08:28] LABS: Anion Gap 6.2 mEq/L (5-15); Sodium 133 mmol/L (136-145)
--- NOTE | 2022-11-09 09:41 | XR_ITS ---
FINAL REPORT CLINICAL HISTORY: Hypoxia COMPARISON: 11/08/2022 FINDINGS: A single portable view of the chest was obtained. There is a right PICC line with the tip at the cavoatrial junction. The heart size and pulmonary vascularity are within normal limits. The mediastinum is within normal limits. There are persistent pulmonary opacities consistent with edema or pneumonia. The bony thorax is intact. IMPRESSION: Persistent pulmonary opacities consistent with edema or pneumonia. Reviewed, Interpreted and Dictated by Wayne Villegas III, MD Transcribed by Belinda Ray Authenticated and . [facility]
--- NOTE | 2022-11-09 09:43 | CA_ITS ---
APPROVED REPORT EXAM: Comprehensive 2D, Doppler, and color-flow Echocardiogram Compensation Vice President: Juana Hastings CRT Ht: 5 ft 8 in Wt: 229lbs BSA: 2.17 BP: 130/77 mmHg Indications: Shortness of Breath, PT ON BI-PAP limited echo on 11-06-23, 50-60%, septic, chf, ckd, gerd 2D Dimensions LVOT 1.67 cm (M/F) 1.5-2.5 LA Volume 35.30 mL LA Volume Index 15.90 mL/m2 (M/F) 16-34 M-Mode Dimensions RVDd 1.53 cm (0.9-2.6) LA Diam 3.70 cm (1.9-4.0) LVDd 4.35 cm (3.5-5.7) Ao Diam 3.59 cm (2.0-3.7) LVDs 2.69 cm (3.5-5.7) IVSd 0.91 cm (0.6-1.1) PWd 1.10 cm (0.6-1.1) EF (Teich) 68.60% FS 38.20% EDV (Teich) 85.40 mL TAPSE 1.72 (<1.7) ESV (Teich) 26.80 mL LV Diastology E Decel Time 280.00 (160-240 msec) E/A Ratio 1.03 MED E' 4.10 (< 7 cm/sec) MED A' 11.20 cm/s E'/MED E' Ratio 26.68 (>14) LAT E' 7.70 (<10 cm/sec) LAT A' 12.10 cm/s E/LAT E' Ratio 14.21 (>14) Aortic Valve LVOT Max 144.00 (70-110 cm/s) LVOT VTI 30.21 cm AoV Peak Jesus. 192.00 (50-130 cm/s) AO Peak GR. 14.70 mmHg AO Mean GR. 8.20 (<5 mmHg) AO VTI 38.28 (18-25 cm) CHAPITO (VTI) 1.73 (2.5-4.5 cm2) Mitral Valve MV E Max Jesus. 109.00 (40-130 cm/s) MV A Velocity 106.00 (40-130 cm/s) E/A Ratio 1.03 MV Decel. Time 280.00 (160-240 ms) MV PHT 82.00 ms Pulmonary Valve PV Peak Velocity 143.00 (50-150 cm/s) Tricuspid Valve TR P. Velocity 371.00 cm/s RAP Estimate 10.00 mmHg RVSP 65.20 mmHg Left Ventricle Left atrium is mildly enlarged, left ventricle is normal size mild concentric left ventricular hypertrophy, estimated ejection fraction 55% with no regional wall motion abnormality, grade 1 diastolic dysfunction seen without tissue Doppler evidence of raise left atrial pressure. Right Ventricle Right atrium and right ventricle are mildly enlarged with normal contractility. Aortic Valve Aortic valve is thickened and calcified without aortic stenosis or aortic insufficiency. Mitral Valve Mitral valve is grossly normal, there is trace mitral regurgitation. Tricuspid Valve Tricuspid valve grossly normal, there is mild tricuspid regurgitation, calculated right ventricular systolic pressure is 65 mmHg. Pulmonic Valve Pulmonic valve is poorly visualized. Great Vessels Aortic root is normal size. Inferior vena cava is normal size with normal inspiratory collapse. Pericardium No significant pericardial effusion noted. Conclusion 1. Biatrial enlargement, normal left ventricular size, mild concentric left ventricular hypertrophy, estimated ejection fraction 55% with no regional wall motion abnormality, grade 1 diastolic dysfunction seen without tissue Doppler evidence of raise left atrial pressure. 2. Mildly enlarged right ventricle with normal contractility. 3. Thickened and calcified aortic valve without aortic stenosis or aortic insufficiency. 4. Trace mitral and mild tricuspid regurgitation, calculated right ventricular systolic pressure 65 mmHg. 5. No significant pericardial effusion noted. 6. Inferior vena cava is normal size with normal inspiratory collapse. Electronically signed by : Tuan Nieto MD 11/10/2022 09:35:54
--- NOTE | 2022-11-09 10:04 | PC.NURSE ---
Addendum entered by Abby Estrada RN 11/09/22 11:23: 1120 fio2 decreased to 60% pt unable to tolerated r/t o2 sats decreased to 80. 1123 fio2 increased back up to 70% Original Note: 0958 Fio2 on cpap decreased from 80% to 70% by Dr Delacruz at this time. Rt notified.
[2022-11-09 11:41] LABS: Lipase 51 U/L (23-300)
[2022-11-09 11:53] LABS: POC Glucose,Bedside 109 (70-110)
[2022-11-09 12:29] LABS: Lactate Dehydrogenase 639 U/L (313-618)
--- NOTE | 2022-11-09 13:01 | EXP.PULM.PN ---
Subjective *Date: 11/09/22 *Time: 13:01 Interval history: No acute respiratory events overnight. Improving oxygen requirements. Pulmonology Exam Inpatient Vital signs and Labs for Last 24 Hours: Temp Pulse Resp BP Pulse Ox FiO2 97.3 F L 71 23 115/60 92 L 70 11/09/22 12:00 11/09/22 12:00 11/09/22 12:00 11/09/22 12:00 11/09/22 12:00 11/09/22 12:00 Laboratory Results - last 24 hr 11/08/22 16:58: POC Glucose 129 H 11/08/22 18:08: Sodium 133 L, Potassium 3.5, Chloride 92 L, Carbon Dioxide 36 H, Anion Gap 8.5, BUN 59 H, Creatinine 2.30 H, Estimated Creat Clear 39, Estimated GFR 21 L, Est GFR ( Amer) 26 L, Glucose 124 H, Calcium 7.0 L 11/08/22 20:16: POC Glucose 135 H 11/09/22 06:00: Sodium 133 L, Potassium 3.2 L, Chloride 94 L, Carbon Dioxide 36 H, Anion Gap 6.2, BUN 60 H, Creatinine 2.50 H, Estimated Creat Clear 36, Estimated GFR 19 L*, Est GFR ( Amer) 23 L, Glucose 107 H, Calcium 6.9 L, Total Bilirubin 0.6, AST 58 H, ALT 45, Alkaline Phosphatase 133 H, Total Protein 5.0 L, Albumin 2.1 L, Globulin 2.9, Albumin/Globulin Ratio 0.7 L 11/09/22 06:00: NT-Pro-B Natriuret Pep 4690 H 11/09/22 06:00: WBC 15.5 H, RBC 2.88 L, Hgb 8.3 L D, Hct 24.8 L, MCV 86.2, MCH 28.9, MCHC 33.6, RDW 15.8, Plt Count 169 D, MPV 7.8, Neut % (Auto) 91.2 H, Lymph % (Auto) 5.2 L, [place] % (Auto) 2.2, Eos % (Auto) 1.2, Baso % (Auto) 0.2, Neut # (Auto) 14.1 H, Lymph # (Auto) 0.8, [place] # (Auto) 0.3, Eos # (Auto) 0.2, Baso # (Auto) 0.0, Total Counted 100, Neutrophils % (Manual) 89 H, Lymphocytes % (Manual) 8 L, Monocytes % (Manual) 2, Eosinophils % (Manual) 1, Platelet Estimate Normal, RBC Morphology Normal 11/09/22 06:00: Magnesium 1.9 11/09/22 06:00: Lactate Dehydrogenase 639 H, C-Reactive Protein 254.0 H, Lipase 51 11/09/22 06:03: POC Glucose 117 H 11/09/22 11:40: POC Glucose 109 I & O for Labs for Last 24 Hours: Intake & Output 11/06/22 11/07/22 11/08/22 11/09/22 23:59 23:59 23:59 23:59 Intake Total 0 / 0 4227 / 4227 1700 / 1700 1600 / 1600 Output Total 125 / 125 450 / 450 450 / 450 250 / 250 Balance -125 / -125 3777 / 3777 1250 / 1250 1350 / 1350 Weight 218 lb 4.122 oz 215 lb 9 oz 223 lb 8 oz 229 lb 3 oz Microbiology Reports for the Last 24 Hours: Microbiology 11/04/22 18:37 Blood Blood Culture - Final Streptococcus pneumoniae 11/04/22 18:37 Blood Blood Culture - Final Streptococcus pneumoniae 11/05/22 22:45 Blood Blood Culture - Preliminary NO GROWTH AFTER 48 HOURS 11/05/22 22:45 Blood Blood Culture - Preliminary NO GROWTH AFTER 48 HOURS Constitutional: Present severe distress Head: Present normocephalic and atraumatic ENT: Present normal exam, normal oropharynx and mucous membranes moist Neck: Present normal inspection and full ROM Respiratory: Present prolonged expiratory phase, respiratory distress, rhonchi, crackles and diminished air movement; Absent able to speak in complete sentences Cardiac: Present S1/S2, Tachycardia and radial pulses present GI: Present soft and distention; Absent tenderness or guarding Rectal (female): Present deferred (female): Present deferred Skin: Present intact; Absent cyanosis or jaundice Neuro: Present awake; Absent alert or oriented x 3 Extremities: Present normal inspection; Absent clubbing or cyanosis Psychiatric: Present normal affect and cooperative Assessment and Plan *Assessment and plan (1) Sepsis: Status: Acute Category: Medical Code(s): A41.9 - Sepsis, unspecified organism (2) Acute respiratory failure with hypoxia: Status: Acute Category: Medical Code(s): J96.01 - Acute respiratory failure with hypoxia (3) Pneumonia: Status: Acute Category: Medical Code(s): J18.9 - Pneumonia, unspecified organism Plan 67-year-old female with reported past male history of GERD, CKD, CHF presented with worseni
--- NOTE | 2022-11-09 13:02 | PC.NURSE ---
Decreased Fi02 to 65% within 2-3 min her sats dropped to 82. I returned her Fi02 to 70% at that time.
--- NOTE | 2022-11-09 13:14 | DIET.NUTRFU ---
Patient reviewed in morning rounds this morning with IDT. She is now ordered NPO but has not really been able to eat since admit on 11/05 d/t respiratory distress and mentation. Nursing reporting slightly better alertness today, respiratory condition improving now on CPAP. Labs are also improving Na 133L, K 3.2L, BUN 60H, Cr 2.5H and glucose 107H with A1c of 5.7 and albumin of 2.1L,. She is on insulin, protonix, received diuretic tx today, bolus fluid yesterday and again today. did review enteral nutrition if unable to provide oral nutrition via NG tube. TF recommendations would be pulmocare at 10ml/hr with goal of 60ml/hour to provide 100% at 2160kcal and 90gm protein and 1130ml/day of formula water and then just adjust flush based on IVF fluid and labs, fluid needs re 1700-2000ml/day. will continue to monitor POC
--- NOTE | 2022-11-09 13:33 | PC.NURSE ---
[address] Beebe via phone that pt has only had a total of 75ml of urine out since 0700. nno
--- NOTE | 2022-11-09 13:49 | EXP.ACUTE.PN ---
Subjective *Date: 11/09/22 *Time: 13:49 Interval history: Rested better overnight on CPAP. Stable oxygen requirement at 80% on morning rounds. Patient somewhat more responsive today, opening eyes and responding nondescript Deep to voice commands. Appears less agitated. Remains afebrile. Hemodynamically stable. Urine output has dropped to 18 cc/h over the past 12 hours. Receiving bolus fluids yesterday. Creatinine stable this morning at 2.5. White cell count stable. BNP decreasing on morning labs. No vomiting. Having frequent small stools, no liquid diarrhea however. Medical Exam Vital signs and Labs for Last 24 Hours: Vital Signs Temp Pulse Pulse Resp BP Pulse Ox FiO2 11/09/22 12:00 71 23 115/60 92 L 70 11/09/22 12:00 97.3 F L 11/09/22 11:17 69 11/09/22 11:17 70 11/09/22 10:24 70 11/09/22 10:00 76 24 107/57 L 98 70 11/09/22 08:01 800 H 11/09/22 08:00 97.1 F L 11/09/22 08:00 83 18 124/58 L 100 80 11/09/22 07:53 73 100 80 11/09/22 06:06 77 11/09/22 06:06 73 11/09/22 06:06 95 80 11/09/22 06:00 77 26 H 113/66 94 L 80 11/09/22 04:00 76 25 H 100/58 L 97 80 11/09/22 04:00 75 11/09/22 04:00 97.8 F 11/09/22 03:40 80 11/09/22 03:38 65 11/09/22 02:00 77 19 136/71 92 L 65 11/09/22 02:00 98.0 F 11/09/22 00:00 80 11/09/22 00:00 77 24 101/55 L 96 65 11/09/22 00:08 78 11/09/22 00:08 78 11/09/22 00:08 65 11/08/22 23:50 98.4 F 11/08/22 22:00 98.6 F 66 26 H 107/60 L 92 L 11/08/22 21:44 97 65 11/08/22 21:43 65 11/08/22 20:00 100 11/08/22 20:00 70 11/08/22 20:00 72 23 100/54 L 99 80 11/08/22 18:00 75 22 100/47 L 100 100 11/08/22 18:11 69 11/08/22 18:11 73 11/08/22 18:11 80 11/08/22 16:00 90 22 104/37 L 100 80 11/08/22 16:00 70 11/08/22 15:39 98.0 F 11/08/22 15:30 80 11/08/22 14:35 75 99 80 11/08/22 14:00 79 22 128/63 99 100 Intake and Output 11/08/22 11/09/22 11/09/22 23:59 07:59 15:59 Intake Total 550 / 1700 1100 / 1600 500 / 1600 Output Total 100 / 450 150 / 250 100 / 250 Balance 450 / 1250 950 / 1350 400 / 1350 Intake: Intake, Total IV Amount 550 / 1700 1100 / 1600 500 / 1600 Piperacillin/Tazo 3.375 gm In 0 50 / 100 100 / 100 .9 % Sodium Chloride 50 ml @ 100 mls/hr IV Q6H [facility] Rx#: [id number] Ringers Solution,Lactated 500 500 / 1000 1000 / 1000 ml @ 250 mls/hr IV .Q2H ONE Rx# :[id number] Ringers Solution,Lactated 500 500 / 500 ml @ 250 mls/hr IV .Q2H [facility] Rx# :[id number] Output: Output, Urine Amount 100 / 450 50 / 150 100 / 150 Output, Urine Amount (Catheter) 100 / 100 Gonzalez 100 / 100 Other: Number of Unmeasured Voids 0 0 0 Number of Bowel Movements 1 Weight 103.958 kg Patient Weight 11/09/22 23:59 Weight 103.958 kg Laboratory Results - last 24 hr 11/08/22 16:58: POC Glucose 129 H 11/08/22 18:08: Sodium 133 L, Potassium 3.5, Chloride 92 L, Carbon Dioxide 36 H, Anion Gap 8.5, BUN 59 H, Creatinine 2.30 H, Estimated Creat Clear 39, Estimated GFR 21 L, Est GFR ( Amer) 26 L, Glucose 124 H, Calcium 7.0 L 11/08/22 20:16: POC Glucose 135 H 11/09/22 06:00: Sodium 133 L, Potassium 3.2 L, Chloride 94 L, Carbon Dioxide 36 H, Anion Gap 6.2, BUN 60 H, Creatinine 2.50 H, Estimated Creat Clear 36, Estimated GFR 19 L*, Est GFR ( Amer) 23 L, Glucose 107 H, Calcium 6.9 L, Total Bilirubin 0.6, AST 58 H, ALT 45, Alkaline Phosphatase 133 H, Total Protein 5.0 L, Albumin 2.1 L, Globulin 2.9, Albumin/Globulin Ratio 0.7 L 11/09/22 06:00: NT-Pro-B Natriuret Pep 4690 H 11/09/22 06:00: WBC 15.5 H, RBC 2.88 L, Hgb 8.3 L D, Hct 24.8 L, MCV 86.2, MCH 28.9, MCHC 33.6, RDW 15.8, Plt Count 169 D, MPV 7.8, Neut
[2022-11-09 14:13] LABS: Hep A Ab, IgM NEGATIVE
[2022-11-09 14:14] LABS: Hepatitis B Core Antibody IgM NEGATIVE; Hepatitis C Antibody NON REACTIVE
[2022-11-09 14:15] LABS: Hepatitis B Surface Antigen NEGATIVE
[2022-11-09 17:38] LABS: POC Glucose,Bedside 100 (70-110)
[2022-11-09 18:50] LABS: Chloride 94 mmol/L (98-107)
[2022-11-09 18:51] LABS: Potassium 3.1 mmoL/L (3.5-5.1); Sodium 136 mmol/L (136-145)
[2022-11-09 18:53] LABS: Blood Urea Nitrogen 58 mg/dl (7-17); Creatinine Clearance Estimated 35 mL/min (50-200); Estimated Glomerular Filt Rate 18 ml/min (>60); GFR (African American) 22 ML/MIN (>60)
[2022-11-09 18:54] LABS: Carbon Dioxide 35 mmol/L (22.0-30.0); Glucose 96 mg/dl (74-100)
[2022-11-09 18:55] LABS: Anion Gap 10.1 mEq/L (5-15)
[2022-11-09 20:15] LABS: POC Glucose,Bedside 95 (70-110)
--- NOTE | 2022-11-09 23:53 | PC.NURSE ---
EMELI GOMEZ NOTIFIED THAT PT HAS ONLY HAD 100ML OF URINE OUT SINCE 1734.
[2022-11-10] VITALS (18 sets, daily range): BP systolic 70–125; BP diastolic 38–65; PULSE 68–94; RESP 17–32; TEMP 36.1–36.6; O2SAT 91–100; BMI 34.9
[2022-11-10 00:14] LABS: Microscopic, Urine URINE MICROSCOPIC (MICROSCOPIC)
[2022-11-10 00:15] LABS: Appearance,Urine CLEAR (Clear); Bilirubin,Urine Negative (Negative); Blood, Urine TRACE-L (Negative); Color,Urine YELLOW (Yellow); Glucose,Urine (UA) Negative (Negative); Ketones,Urine TRACE (Negative); Leukocyte Esterase,Urine 2+ (Negative); Nitrate,Urine Negative (Negative); PH,Urine 5.5 (5.0-8.5); Protein,Urine 1+ (Negative); Urobilinogen,Urine 0.2 EU/dl (0.2)
[2022-11-10 00:19] LABS: Bacteria,Urine Trace /lpf; RBC,Urine Occasional #/hpf (0-3); Yeast,Urine 4+ /lpf
[2022-11-10 05:25] LABS: POC Glucose,Bedside 80 (70-110)
--- NOTE | 2022-11-10 05:26 | PC.NURSE ---
INSIDE FINISHER MADE AWARE THAT PT HAS ONLY HAD 100ML OUT IN URINE SIE MIDNIGHT AND OPT HAS +1 PITTING EDEMA ON HER FEET.
--- NOTE | 2022-11-10 05:30 | PC.NURSE ---
PT HAS RESTED WELL SINCE RECEIVING REPORT AT 2315. PT O2 DECREASED THIS AM TO THE MID 80'S. RT NOTIFIED. PT IS NOW ON 100% FiO2 ON CPAP. TOLERATING WELL AT THIS TIME. BP IS SOFT OCCASIONALLY. BEING TURNED Q2HRS AND ORAL CARE NEEDED. PT WITHDRAWALS FROM PAIN AND IS UNABLE TO ANSWER ORIENTATION QUESTIONS. OTHER VITAL SIGNS STABLE. BED ALARM IN PLACE FOR PT SAFETY.
[2022-11-10 06:29] LABS: Basophils % 0.1 % (0.1-2.0); Eosinophils # 0.3 K/mm3 (0.0-0.4); Eosinophils % 2.4 % (0.1-12.0); Hematocrit 27.3 % (37.0-47.0); Hemoglobin 8.7 g/dL (12.2-16.2); Lymphocytes % 6.8 % (10-50); Mean Corpuscular Hemoglobin 28.8 pg (27.0-31.2); Mean Corpuscular Volume 90.2 fl (81-99); Mean Platelet Volume 8.1 fl (7.4-10.4); Monocytes # 0.6 K/mm3 (0.1-1.0); Neutrophils % 86.7 % (37.0-80.0); Platelet Count 128 K/mm3 (142-424); Red Blood Count 3.02 M/mm3 (4.20-5.40); Red Cell Distribution Width 15.9 % (11.5-17.5); White Blood Count 13.9 K/mm3 (4.8-10.8)
[2022-11-10 06:34] LABS: MANUAL DIFFERENTIAL MANUAL DIFFERENTIAL (MANUAL DIFF)
[2022-11-10 06:56] LABS: Anisocytosis 1+; Hypochromasia 1+; Lymphocytes % 3 % (10-50); Monocytes % 1 % (2-9); Neutrophils % 96 % (42-76); Platelet Estimate Slight Decrease; Total Cells Counted 100
[2022-11-10 06:58] LABS: Chloride 96 mmol/L (98-107); Potassium 3.3 mmoL/L (3.5-5.1); Sodium 136 mmol/L (136-145)
[2022-11-10 07:00] LABS: Magnesium 1.7 mg/dl (1.6-2.3)
[2022-11-10 07:01] LABS: Alanine Aminotransferase 39 U/L (12-78); Albumin/Globulin Ratio 0.7 (1.1-1.8); Alkaline Phosphatase 148 U/L (38-126); Anion Gap 9.3 mEq/L (5-15); Aspartate Amino Transferase 56 U/L (14-36); Bilirubin,Total 0.5 mg/dl (0.2-1.3); Blood Urea Nitrogen 57 mg/dl (7-17); Carbon Dioxide 34 mmol/L (22.0-30.0); Creatinine Clearance Estimated 34 mL/min (50-200); Estimated Glomerular Filt Rate 18 ml/min (>60); GFR (African American) 21 ML/MIN (>60); Globulin 2.8 g/dL (1.3-3.2); Total Protein,Serum 4.8 g/dl (6.3-8.2)
[2022-11-10 07:02] LABS: Glucose 71 mg/dl (74-100)
[2022-11-10 07:26] LABS: Thyroid Stimulating Hormone 0.95 uIU/mL (0.465-4.68)
[2022-11-10 07:30] LABS: Procalcitonin 2.42 ng/mL (0.0-2.0)
--- NOTE | 2022-11-10 08:06 | XR_ITS ---
FINAL REPORT CLINICAL HISTORY: hypoxia, pneumonia COMPARISON: 11/09/2022 FINDINGS: A single portable view of the chest was obtained. A right-sided PICC line is present. There is cardiomegaly The mediastinum is within normal limits. There are worsening pulmonary opacities which may represent edema or pneumonia. The bony thorax is intact. IMPRESSION: Worsening pulmonary edema or pneumonia. Reviewed, Interpreted and Dictated by Wayne Villegas III, MD Transcribed by Moraima Mayes Authenticated and [facility]
[2022-11-10 08:26] LABS: MRSA DNA PCR Positive
--- NOTE | 2022-11-10 08:32 | EXP.PHA.PN ---
Subjective *Date: 11/10/22 *Time: 08:32 Medical Exam Vital signs and Labs for Last 24 Hours: Vital Signs Temp Pulse Pulse Resp BP Pulse Ox FiO2 11/10/22 08:00 94 L 90 11/10/22 07:35 97.9 F 11/10/22 06:00 68 22 101/57 L 97 100 11/10/22 04:00 81 20 112/54 L 92 L 100 11/10/22 04:00 97.7 F 11/10/22 03:03 70 11/10/22 02:00 70 11/10/22 02:37 100/51 L 11/10/22 02:00 75 22 90/49 L 93 L 70 11/10/22 00:00 80 11/10/22 00:00 93 L 70 11/10/22 00:00 80 22 125/38 L 91 L 70 11/10/22 00:00 97.6 F 11/09/22 23:28 75 11/09/22 23:28 75 11/09/22 22:00 70 11/09/22 22:00 77 22 101/54 L 93 L 70 11/09/22 20:00 80 11/09/22 20:00 93 H 22 102/56 L 95 70 11/09/22 20:00 70 11/09/22 19:42 97.8 F 11/09/22 18:57 70 11/09/22 18:57 70 11/09/22 18:57 70 11/09/22 18:34 70 11/09/22 18:00 73 22 95/52 L 93 L 70 11/09/22 16:29 75 96 70 11/09/22 16:00 75 23 129/71 92 L 70 11/09/22 16:00 70 11/09/22 14:00 97.3 F L 11/09/22 15:51 97.4 F L 11/09/22 12:00 70 11/09/22 12:00 71 23 115/60 92 L 70 11/09/22 12:00 97.3 F L 11/09/22 11:17 69 11/09/22 11:17 70 11/09/22 10:24 70 11/09/22 10:00 76 24 107/57 L 98 70 Intake and Output 11/09/22 11/10/22 11/10/22 23:59 07:59 15:59 Intake Total 1070 / 2720 1694 / 2234 540 / 2234 Output Total 200 / 525 100 / 100 Balance 870 / 2195 1594 / 2134 540 / 2134 Intake: Intake, Oral Amount 0 / 0 Intake, Total IV Amount 1070 / 2720 1694 / 1694 KCl 10mEq/100ml 100 ml @ 100 198 / 198 mls/hr IV Q1H [facility] Rx#:[id number] Piperacillin/Tazo 3.375 gm In 0 70 / 220 .9 % Sodium Chloride 50 ml @ 100 mls/hr IV Q6H [facility] Rx#: [id number] Ringers Solution,Lactated 1,000 1000 / 1000 946 / 946 ml @ 250 mls/hr IV .Q4H [facility] Rx #:[id number] Ringers Solution,Lactated 500 550 / 550 ml @ 250 mls/hr IV .Q2H [facility] Rx# :[id number] Infusion Intake 540 / 540 Ringers Solution,Lactated 500 540 / 540 ml @ 250 mls/hr IV .Q2H [facility] Rx# :[id number] Output: Output, Urine Amount 100 / 325 0 / 0 Output, Urine Amount (Catheter) 100 / 200 100 / 100 Gonzalez 100 / 200 100 / 100 Other: Number of Unmeasured Voids 0 0 Weight 104.78 kg Patient Weight 11/10/22 23:59 Weight 104.78 kg Laboratory Results - last 24 hr 11/05/22 22:45: Hepatitis A IgM Ab Negative, Hep Bs Antigen Negative, Hep B Core IgM Ab Negative, Hepatitis C Antibody Non reactive 11/08/22 11:51: MRSA (PCR) Positive 11/09/22 06:00: Sodium 133 L, Anion Gap 6.2 11/09/22 06:00: Lactate Dehydrogenase 639 H, C-Reactive Protein 254.0 H, Lipase 51 11/09/22 11:40: POC Glucose 109 11/09/22 17:29: POC Glucose 100 11/09/22 18:35: Sodium 136, Potassium 3.1 L, Chloride 94 L, Carbon Dioxide 35 H, Anion Gap 10.1, BUN 58 H, Creatinine 2.60 H, Estimated Creat Clear 35, Estimated GFR 18 L*, Est GFR ( Amer) 22 L, Glucose 96, Calcium 7.0 L 11/09/22 20:07: POC Glucose 95 11/10/22 00:00: Urine Color Yellow, Urine Appearance Clear, Urine pH 5.5, Ur Specific [place] 1.020, Urine Protein 1+, Urine Glucose (UA) Negative, Urine Ketones Trace, Urine Blood Trace-l, Urine Nitrate Negative, Urine Bilirubin Negative, Urine Urobilinogen 0.2, Ur Leukocyte Esterase 2+ A, Urine RBC Occasional, Urine WBC 10-20, Ur Squamous Epith Cells None, Urine Bacteria Trace, Urine Yeast 4+ 11/10/22 05:12: POC Glucose 80 11/10/22 05:15: Sodium 136, Potassium 3.3 L, Chloride 96 L, Carbon Dioxide 34 H, Anion Gap 9.3, BUN 57 H, Creatinine 2.70 H, Estimated Creat Clear 34, Estimated GFR 18 L*, Est GFR ( Amer) 21 L, Glucose 71 L D, Calcium 7.0 L, Total Bilirubin 0.5, AST 56 H, ALT 39, Alkaline Phosphatase 148 H, Total Protein 4.8 L, Albumin
--- NOTE | 2022-11-10 09:53 | EXP.PULM.PN ---
Subjective *Date: 11/10/22 *Time: 11:15 Interval history: No acute respiratory vents overnight. Pulmonology Exam Inpatient Vital signs and Labs for Last 24 Hours: Temp Pulse Resp BP Pulse Ox FiO2 97.9 F 79 22 103/65 L 93 L 90 11/10/22 07:35 11/10/22 08:00 11/10/22 08:00 11/10/22 08:00 11/10/22 08:00 11/10/22 08:00 Laboratory Results - last 24 hr 11/05/22 22:45: Hepatitis A IgM Ab Negative, Hep Bs Antigen Negative, Hep B Core IgM Ab Negative, Hepatitis C Antibody Non reactive 11/08/22 11:51: MRSA (PCR) Positive 11/09/22 06:00: Lactate Dehydrogenase 639 H, C-Reactive Protein 254.0 H, Lipase 51 11/09/22 11:40: POC Glucose 109 11/09/22 17:29: POC Glucose 100 11/09/22 18:35: Sodium 136, Potassium 3.1 L, Chloride 94 L, Carbon Dioxide 35 H, Anion Gap 10.1, BUN 58 H, Creatinine 2.60 H, Estimated Creat Clear 35, Estimated GFR 18 L*, Est GFR ( Amer) 22 L, Glucose 96, Calcium 7.0 L 11/09/22 20:07: POC Glucose 95 11/10/22 00:00: Urine Color Yellow, Urine Appearance Clear, Urine pH 5.5, Ur Specific [place] 1.020, Urine Protein 1+, Urine Glucose (UA) Negative, Urine Ketones Trace, Urine Blood Trace-l, Urine Nitrate Negative, Urine Bilirubin Negative, Urine Urobilinogen 0.2, Ur Leukocyte Esterase 2+ A, Urine RBC Occasional, Urine WBC 10-20, Ur Squamous Epith Cells None, Urine Bacteria Trace, Urine Yeast 4+ 11/10/22 05:12: POC Glucose 80 11/10/22 05:15: Sodium 136, Potassium 3.3 L, Chloride 96 L, Carbon Dioxide 34 H, Anion Gap 9.3, BUN 57 H, Creatinine 2.70 H, Estimated Creat Clear 34, Estimated GFR 18 L*, Est GFR ( Amer) 21 L, Glucose 71 L D, Calcium 7.0 L, Total Bilirubin 0.5, AST 56 H, ALT 39, Alkaline Phosphatase 148 H, Total Protein 4.8 L, Albumin 2.0 L, Globulin 2.8, Albumin/Globulin Ratio 0.7 L, TSH 0.95 11/10/22 05:15: Procalcitonin 2.42 H 11/10/22 05:15: WBC 13.9 H, RBC 3.02 L, Hgb 8.7 L, Hct 27.3 L, MCV 90.2, MCH 28.8, MCHC 32.0, RDW 15.9, Plt Count 128 L, MPV 8.1, Neut % (Auto) 86.7 H, Lymph % (Auto) 6.8 L, [place] % (Auto) 4.0, Eos % (Auto) 2.4, Baso % (Auto) 0.1, Neut # (Auto) 12.0 H, Lymph # (Auto) 1.0, [place] # (Auto) 0.6, Eos # (Auto) 0.3, Baso # (Auto) 0.0, Total Counted 100, Neutrophils % (Manual) 96 H, Lymphocytes % (Manual) 3 L, Monocytes % (Manual) 1 L, Platelet Estimate Slight decrease, Hypochromasia 1+, Anisocytosis 1+ 11/10/22 05:15: Magnesium 1.7 D I & O for Labs for Last 24 Hours: Intake & Output 11/07/22 11/08/22 11/09/22 11/10/22 23:59 23:59 23:59 23:59 Intake Total 4227 / 4227 1700 / 1700 2720 / 2720 2234 / 2234 Output Total 450 / 450 450 / 450 525 / 525 100 / 100 Balance 3777 / 3777 1250 / 1250 2195 / 2195 2134 / 2134 Weight 215 lb 9 oz 223 lb 8 oz 229 lb 3 oz 231 lb Microbiology Reports for the Last 24 Hours: Microbiology 11/04/22 18:37 Blood Blood Culture - Final Streptococcus pneumoniae 11/04/22 18:37 Blood Blood Culture - Final Streptococcus pneumoniae 11/05/22 22:45 Blood Blood Culture - Preliminary NO GROWTH AFTER 48 HOURS 11/05/22 22:45 Blood Blood Culture - Preliminary NO GROWTH AFTER 48 HOURS Constitutional: Present severe distress Head: Present normocephalic and atraumatic ENT: Present normal exam, normal oropharynx and mucous membranes moist Neck: Present normal inspection and full ROM Respiratory: Present prolonged expiratory phase, respiratory distress, rhonchi, crackles and diminished air movement; Absent able to speak in complete sentences Cardiac: Present S1/S2, Tachycardia and radial pulses present GI: Present soft and distention; Absent tenderness or guarding Rectal (female): Present deferred (female): Present deferred Skin: Present intact; Absent cyanosis or jaundice Neuro: Present awake; Absent alert or oriented x 3 Extremities: Present normal inspection; Absent clubbing or cyanosis Assessment and Plan *Assessment and plan (1) Sepsis: S
--- NOTE | 2022-11-10 11:37 | EXP.ACUTE.PN ---
Subjective *Date: 11/10/22 *Time: 16:56 Interval history: Patient has been active but agitated today. No meaningful response to questioning. Opening eyes spontaneously and moving all extremities spontaneously. Continues to necessitate CPAP, FiO2 between 80 and 100% throughout the day. Still n.p.o., multiple attempts to place NG today with no audible sounds in stomach. Patient has history of hiatal hernia, concern NG is curling and hiatal hernia. Urine output over the past 24 hours has remained at approximately 20 cc an hour. Chest x-ray worse this morning with worsening pulmonary edema. Will attempt diuresis today. Still having small loose bowel movements. Afebrile. Blood pressure gradually decreasing through the morning. Medical Exam Vital signs and Labs for Last 24 Hours: Vital Signs Temp Pulse Pulse Resp BP Pulse Ox FiO2 11/10/22 11:32 96.9 F L 11/10/22 08:00 79 22 103/65 L 93 L 11/10/22 08:00 94 L 90 11/10/22 07:35 97.9 F 11/10/22 06:00 68 22 101/57 L 97 100 11/10/22 04:00 81 20 112/54 L 92 L 100 11/10/22 04:00 97.7 F 11/10/22 03:03 70 11/10/22 02:00 70 11/10/22 02:37 100/51 L 11/10/22 02:00 75 22 90/49 L 93 L 70 11/10/22 00:00 80 11/10/22 00:00 93 L 70 11/10/22 00:00 80 22 125/38 L 91 L 70 11/10/22 00:00 97.6 F 11/09/22 23:28 75 11/09/22 23:28 75 11/09/22 22:00 70 11/09/22 22:00 77 22 101/54 L 93 L 70 11/09/22 20:00 80 11/09/22 20:00 93 H 22 102/56 L 95 70 11/09/22 20:00 70 11/09/22 19:42 97.8 F 11/09/22 18:57 70 11/09/22 18:57 70 11/09/22 18:57 70 11/09/22 18:34 70 11/09/22 18:00 73 22 95/52 L 93 L 70 11/09/22 16:29 75 96 70 11/09/22 16:00 75 23 129/71 92 L 70 11/09/22 16:00 70 11/09/22 14:00 97.3 F L 11/09/22 15:51 97.4 F L 11/09/22 12:00 70 11/09/22 12:00 71 23 115/60 92 L 70 11/09/22 12:00 97.3 F L Intake and Output 11/09/22 11/10/22 11/10/22 23:59 07:59 15:59 Intake Total 1070 / 2720 1694 / 2234 540 / 2234 Output Total 200 / 525 100 / 100 0 / 100 Balance 870 / 2195 1594 / 2134 540 / 2134 Intake: Intake, Oral Amount 0 / 0 Intake, Total IV Amount 1070 / 2720 1694 / 1694 KCl 10mEq/100ml 100 ml @ 100 198 / 198 mls/hr IV Q1H COUNT INCLUDES [facility] Rx#:[id number] Piperacillin/Tazo 3.375 gm In 0 70 / 220 .9 % Sodium Chloride 50 ml @ 100 mls/hr IV Q6H [facility] Rx#: [id number] Ringers Solution,Lactated 1,000 1000 / 1000 946 / 946 ml @ 250 mls/hr IV .Q4H [facility] Rx #:[id number] Ringers Solution,Lactated 500 550 / 550 ml @ 250 mls/hr IV .Q2H ONE Rx# :[id number] Infusion Intake 540 / 540 Ringers Solution,Lactated 500 540 / 540 ml @ 250 mls/hr IV .Q2H [facility] Rx# :[id number] Output: Output, Urine Amount 100 / 325 0 / 0 0 / 0 Output, Urine Amount (Catheter) 100 / 200 100 / 100 Gonzalez 100 / 200 100 / 100 Other: Number of Unmeasured Voids 0 0 0 Weight 104.78 kg Patient Weight 11/10/22 23:59 Weight 104.78 kg Laboratory Results - last 24 hr 11/05/22 22:45: Hepatitis A IgM Ab Negative, Hep Bs Antigen Negative, Hep B Core IgM Ab Negative, Hepatitis C Antibody Non reactive 11/08/22 11:51: MRSA (PCR) Positive 11/09/22 06:00: Lactate Dehydrogenase 639 H, C-Reactive Protein 254.0 H, Lipase 51 11/09/22 11:40: POC Glucose 109 11/09/22 17:29: POC Glucose 100 11/09/22 18:35: Sodium 136, Potassium 3.1 L, Chloride 94 L, Carbon Dioxide 35 H, Anion Gap 10.1, BUN 58 H, Creatinine 2.60 H, Estimated Creat Clear 35, Estimated GFR 18 L*, Est GFR ( Amer) 22 L, Glucose 96, Calcium 7.0 L 11/09/22 20:07: POC Glucose 95 11/10/22 00:00: Urine Color Yellow, Urine Appearance Clear, Urine pH 5.5, Ur Specific Cecil 1.020, Urine Protein 1+, Urine Glucose (
--- NOTE | 2022-11-10 12:52 | PC.NURSE ---
ng tube insertion unsuccessful at this time. attempted by this rn and tang maya rn immunology nurse. pt did not tolerate, o2 sat dropped into 60's. pt unable to follow commands
--- NOTE | 2022-11-10 12:58 | PC.NURSE ---
late entry- 1030 ng tube insertion unsuccessful. procedure attempted x3 with assistance from bryce maya rn telemetry nurse. pt was not able to follow commands and o2 saturation dropped into the 60's quickly.
--- NOTE | 2022-11-10 12:59 | PC.NURSE ---
DR GENARO VAZQUEZ WITH HOLDING OFF ON LEVO GTT PT BP HAS RECOVERED TO 114/73
--- NOTE | 2022-11-10 15:55 | PC.NURSE ---
DR GARCIA V/O TO START LEVO GTT AT 5 AND MAINTAIN MAP OF 70.
--- NOTE | 2022-11-10 16:40 | PC.NURSE ---
Wilmer GODOY CHIEF CLINICAL OFFICER ATTEMPTED TO INSERT NG TUBE BUT PT WAS UNABLE TO TOLERATE PROCEDURE.
[2022-11-10 18:48] LABS: Chloride 95 mmol/L (98-107); Potassium 4.3 mmoL/L (3.5-5.1); Sodium 136 mmol/L (136-145)
[2022-11-10 18:51] LABS: Anion Gap 12.3 mEq/L (5-15); Blood Urea Nitrogen 60 mg/dl (7-17); Carbon Dioxide 33 mmol/L (22.0-30.0); Creatinine Clearance Estimated 34 mL/min (50-200); Estimated Glomerular Filt Rate 18 ml/min (>60); GFR (African American) 21 ML/MIN (>60)
[2022-11-10 18:52] LABS: Calcium 7.4 mg/dl (8.4-10.2); Glucose 133 mg/dl (74-100)
[2022-11-10 19:29] LABS: Phosphorous 3.1 mg/dl (2.5-4.5)
[2022-11-11] VITALS (25 sets, daily range): BP systolic 93–121; BP diastolic 41–67; PULSE 73–93; RESP 12–30; TEMP 36.5–37.1; O2SAT 94–100; BMI 36.1
[2022-11-11 01:20] LABS: POC Glucose,Bedside 116 (70-110)
[2022-11-11 07:34] LABS: POC Glucose,Bedside 142 (70-110)
[2022-11-11 07:34] LABS: POC Glucose,Bedside 126 (70-110)
[2022-11-11 07:34] LABS: POC Glucose,Bedside 72 (70-110)
--- NOTE | 2022-11-11 07:44 | PC.NURSE ---
[facility]
[2022-11-11 08:56] LABS: Basophils # 0.1 K/mm3 (0-0.2); Basophils % 0.4 % (0.1-2.0); Eosinophils # 0.5 K/mm3 (0.0-0.4); Eosinophils % 4.4 % (0.1-12.0); Hematocrit 26.9 % (37.0-47.0); Hemoglobin 8.8 g/dL (12.2-16.2); Lymphocytes # 1.5 K/mm3 (0.7-4.5); Mean Corpuscular HGB Conc 32.5 g/dL (31.8-35.4); Mean Corpuscular Hemoglobin 28.5 pg (27.0-31.2); Mean Corpuscular Volume 87.6 fl (81-99); Mean Platelet Volume 9.2 fl (7.4-10.4); Monocytes # 0.5 K/mm3 (0.1-1.0); Monocytes % 3.9 % (1.7-9.3); Neutrophils # 9.9 K/mm3 (1.8-7.8); Neutrophils % 79.4 % (37.0-80.0); Platelet Count 138 K/mm3 (142-424); Red Blood Count 3.07 M/mm3 (4.20-5.40); Red Cell Distribution Width 15.9 % (11.5-17.5); White Blood Count 12.5 K/mm3 (4.8-10.8)
[2022-11-11 09:03] LABS: Chloride 96 mmol/L (98-107); Potassium 3.4 mmoL/L (3.5-5.1); Sodium 135 mmol/L (136-145)
[2022-11-11 09:06] LABS: Alanine Aminotransferase 40 U/L (12-78); Albumin Level 2.3 g/dl (3.5-5.0); Albumin/Globulin Ratio 0.7 (1.1-1.8); Alkaline Phosphatase 170 U/L (38-126); Anion Gap 10.4 mEq/L (5-15); Aspartate Amino Transferase 48 U/L (14-36); Bilirubin,Total 0.6 mg/dl (0.2-1.3); Blood Urea Nitrogen 60 mg/dl (7-17); Calcium 7.3 mg/dl (8.4-10.2); Carbon Dioxide 32 mmol/L (22.0-30.0); Creatinine Clearance Estimated 30 mL/min (50-200); Estimated Glomerular Filt Rate 15 ml/min (>60); GFR (African American) 18 ML/MIN (>60); Globulin 3.1 g/dL (1.3-3.2); Glucose 117 mg/dl (74-100); Total Protein,Serum 5.4 g/dl (6.3-8.2)
[2022-11-11 09:07] LABS: Magnesium 1.8 mg/dl (1.6-2.3)
[2022-11-11 09:36] LABS: NT Pro Brain Natriuretic Pep. 4870 pg/mL (0-125)
--- NOTE | 2022-11-11 09:37 | EXP.ACUTE.PN ---
Subjective *Date: 11/11/22 *Time: 14:24 Interval history: Urine output is beginning to drop off. Patient remains afebrile. Able to wean oxygenation on CPAP to 65%. Patient resting little bit better overnight. On exam this morning opens eyes to verbal command and tries to look at provider and respond. Not on since a cool sounds. Not following commands otherwise as far as hand squeeze or thumbs up. Continues to require norepinephrine at mcg/kg starting dose with MAP consistently > 65. Failed to get NG placed yesterday, concerning for placement in HH, not in stomach. Plan to re-attempt today. Medical Exam Vital signs and Labs for Last 24 Hours: Vital Signs Temp Pulse Pulse Resp BP Pulse Ox FiO2 11/11/22 08:00 80 11/11/22 07:56 98.4 F 11/11/22 06:15 85 11/11/22 06:15 85 11/11/22 06:15 96 65 11/11/22 06:00 73 21 121/67 96 65 11/11/22 04:00 65 11/11/22 00:00 80 11/10/22 20:00 80 11/10/22 20:00 75 11/11/22 04:00 97.7 F 11/11/22 02:00 80 23 120/64 99 11/11/22 02:00 65 11/11/22 00:00 82 21 109/64 L 100 75 11/11/22 00:00 97.8 F 11/10/22 23:07 94 H 11/10/22 23:07 94 H 11/10/22 23:07 75 11/10/22 20:00 100 75 11/10/22 22:00 77 102/57 L 100 11/10/22 20:00 82 100/58 L 11/10/22 20:00 97.9 F 11/10/22 18:20 77 11/10/22 18:20 77 11/10/22 18:20 100 75 11/10/22 18:00 75 11/10/22 16:00 75 11/10/22 16:00 99 90 11/10/22 15:17 96.9 F L 11/10/22 12:20 70/48 L 11/10/22 11:44 89 11/10/22 11:44 93 H 11/10/22 11:32 96.9 F L Intake and Output 11/10/22 11/11/22 11/11/22 23:59 07:59 15:59 Intake Total 309.8 / 2543.8 Output Total 0 / 200 50 / 50 Balance 309.8 / 2343.8 -50 / -50 Intake: Intake, Oral Amount 0 / 0 Infusion Intake 309.8 / 849.8 Linezolid 600 mg In 300 ml @ 300 / 300 300 mls/hr IV Q12H LUIS Rx#: [id number] Norepinephrine Bitartrate 16 mg 9.8 / 9.8 In Dextrose 5 % in Water 250 ml @ 4 MCG/MIN 3.87 mls/hr IV . Q24H LUIS Rx#:[id number] Output: Output, Urine Amount 0 / 100 50 / 50 Other: Number of Unmeasured Voids 0 Number of Bowel Movements 1 1 Weight 108.068 kg Patient Weight 11/11/22 23:59 Weight 108.068 kg Laboratory Results - last 24 hr 11/10/22 12:00: POC Glucose 72 11/10/22 16:17: POC Glucose 142 H 11/10/22 18:24: Phosphorus 3.1 11/10/22 18:25: Sodium 136, Potassium 4.3 D, Chloride 95 L, Carbon Dioxide 33 H, Anion Gap 12.3, BUN 60 H, Creatinine 2.70 H, Estimated Creat Clear 34, Estimated GFR 18 L*, Est GFR ( Amer) 21 L, Glucose 133 H D, Calcium 7.4 L 11/11/22 01:13: POC Glucose 116 H 11/11/22 06:09: POC Glucose 126 H 11/11/22 08:47: Lactate 4.0 H 11/11/22 08:47: WBC 12.5 H, RBC 3.07 L, Hgb 8.8 L, Hct 26.9 L, MCV 87.6, MCH 28.5, MCHC 32.5, RDW 15.9, Plt Count 138 L, MPV 9.2, Neut % (Auto) 79.4, Lymph % (Auto) 12.0, [place] % (Auto) 3.9, Eos % (Auto) 4.4, Baso % (Auto) 0.4, Neut # (Auto) 9.9 H, Lymph # (Auto) 1.5, [place] # (Auto) 0.5, Eos # (Auto) 0.5 H, Baso # (Auto) 0.1 11/11/22 08:47: Sodium 135 L, Potassium 3.4 L D, Chloride 96 L, Carbon Dioxide 32 H, Anion Gap 10.4, BUN 60 H, Creatinine 3.10 H, Estimated Creat Clear 30, Estimated GFR 15 L*, Est GFR ( Amer) 18 L*, Glucose 117 H, Calcium 7.3 L, Magnesium 1.8, Total Bilirubin 0.6, AST 48 H, ALT 40, Alkaline Phosphatase 170 H, Total Protein 5.4 L, Albumin 2.3 L D, Globulin 3.1, Albumin/Globulin Ratio 0.7 L I & O for Labs for Last 24 Hours: Intake & Output 11/08/22 11/09/22 11/10/22 11/11/22 23:59 23:59 23:59 23:59 Intake Total 1700 / 1700 2720 / 2720 2543.8 / 2543.8 Output Total 450 / 450 525 / 525 200 / 200 50 / 50 Balance 1250 / 1250 2195 / 2195 2343.8 / 2343.8 -50 / -50 Weight 101.378 kg 103.958 kg 104.78 kg 108.068 kg
--- NOTE | 2022-11-11 10:57 | DIET.NUTRFU ---
According to nite, NG was unable to be placed. No IVF ordered at th time, labs reviewed. Diuretic tx stopped at this time. Will consult nursing to determine if can retry for NG placement
[2022-11-11 12:07] LABS: POC Glucose,Bedside 116 (70-110)
[2022-11-11 12:51] LABS: Reflex Lactic Add Lactic Reflex
--- NOTE | 2022-11-11 14:21 | XR_ITS ---
PROCEDURE INFORMATION: Exam: XR Chest Exam date and time: 11/11/2022 2:26 PM Age: 67 years old Clinical indication: Device placement; Ng tube; Additional info: Ng placement TECHNIQUE: Imaging protocol: Radiologic exam of the chest. Views: 1 view. COMPARISON: CR XR CHEST PORTABLE 11/10/2022 8:23 AM FINDINGS: Tubes, catheters and devices: Stable right PICC. Enteric tube is coiled in the hypopharynx Lungs: Diffuse bilateral opacities may represent pulmonary edema or multifocal pneumonia.. Pleural spaces: Unremarkable. No pleural effusion. No pneumothorax. Heart/Mediastinum: Unremarkable. No cardiomegaly. Bones/joints: Unremarkable. IMPRESSION: 1. Diffuse bilateral opacities may represent pulmonary edema or multifocal pneumonia.. 2. Enteric tube is coiled in the hypopharynx
[2022-11-11 15:22] LABS: Reflex Lactic (2 hrs) Add Lactic Reflex
[2022-11-11 16:48] LABS: Lactic Acid Follow up (RFLX 2) 4.8 mmol/L (0.7-2.1)
[2022-11-11 18:57] LABS: POC Glucose,Bedside 127 (70-110)
[2022-11-11 19:00] LABS: Chloride 96 mmol/L (98-107); Potassium 3.4 mmoL/L (3.5-5.1); Sodium 135 mmol/L (136-145)
[2022-11-11 19:03] LABS: Blood Urea Nitrogen 62 mg/dl (7-17); Creatinine Clearance Estimated 29 mL/min (50-200); Estimated Glomerular Filt Rate 14 ml/min (>60); GFR (African American) 17 ML/MIN (>60)
[2022-11-11 19:04] LABS: Anion Gap 13.4 mEq/L (5-15); Calcium 7.3 mg/dl (8.4-10.2); Carbon Dioxide 29 mmol/L (22.0-30.0); Glucose 122 mg/dl (74-100)
[2022-11-11 21:22] LABS: POC Glucose,Bedside 120 (70-110)
--- NOTE | 2022-11-11 21:53 | PC.NURSE ---
pt without UOP noted since change of shift, elaine shinaus making rounds and is at bedside and aware of pt with decrease uop, levo drip still at 6mcg/min, pt will open one eye slightly with name calling, pt edematous, tele nsr, cpap at 65% with sats at 98% at this time.
[2022-11-12] VITALS (20 sets, daily range): BP systolic 75–114; BP diastolic 40–63; PULSE 80–96; RESP 18–22; TEMP 37.2–37.4; O2SAT 93–100; BMI 35.3
--- NOTE | 2022-11-12 01:04 | PC.NURSE ---
elaine schafer made aware of pt with scant amount of UOP, not enough to measure, pt with levo infusing at 6mcg/min still with maps maintained at 65-68, verified with elaine regarding parameters with levophed drip in which elaine stated keep maps 65-70 repeated and verified.
--- NOTE | 2022-11-12 01:33 | PC.NURSE ---
levo increased to 7mcg/min at this time for consistent maps 63-65. uop 5ml at this time.
--- NOTE | 2022-11-12 05:08 | PC.NURSE ---
pt remains lethargic and will open eyes upon name calling and touching, pt will moan on occasion, pt remains on cpap at 65% and o2 sats remain stable above 97%, telemetry reveals nsr, abd soft, no bm this shift, f/c to bsd with minimal uop, pt has had 8ml since 7pm, elaine was called at this time regarding uop and made aware, no new orders received at this time, bilateral upper and lower edema 3+, skin with left nipple redness and dried drainage noted, redness and excoriation noted under breasts and skin fold, pink flower pressure to left inner skin fold, no acute distress noted, v/s with maps 65-70 on levophed drip at 7mcg/min currently, right upper arm picc line dressing intact and patent.
[2022-11-12 05:58] LABS: POC Glucose,Bedside 120 (70-110)
--- NOTE | 2022-11-12 06:19 | PC.NURSE ---
ta ford is at bedside at this time, Leticia Hennessy APRN is at bedside speaking to marcial, Leticia made aware again that uop is on 8ml in last 10 hours. no new orders at this time, levo remains at 7mcg/min with maps 64-71
--- NOTE | 2022-11-12 06:23 | PC.NURSE ---
fio2 decreased to 60% at this time per RT
[2022-11-12 06:30] LABS: Alanine Aminotransferase 37 U/L (12-78); Albumin Level 2.2 g/dl (3.5-5.0); Albumin/Globulin Ratio 0.7 (1.1-1.8); Alkaline Phosphatase 181 U/L (38-126); Anion Gap 16.5 mEq/L (5-15); Aspartate Amino Transferase 46 U/L (14-36); Bilirubin,Total 0.7 mg/dl (0.2-1.3); Blood Urea Nitrogen 64 mg/dl (7-17); Calcium 7.4 mg/dl (8.4-10.2); Carbon Dioxide 27 mmol/L (22.0-30.0); Chloride 95 mmol/L (98-107); Creatinine Clearance Estimated 26 mL/min (50-200); Estimated Glomerular Filt Rate 13 ml/min (>60); GFR (African American) 15 ML/MIN (>60); Globulin 3.3 g/dL (1.3-3.2); Glucose 107 mg/dl (74-100); Magnesium 1.9 mg/dl (1.6-2.3); Potassium 3.5 mmoL/L (3.5-5.1); Sodium 135 mmol/L (136-145); Total Protein,Serum 5.5 g/dl (6.3-8.2)
[2022-11-12 07:02] LABS: Basophils # 0.1 K/mm3 (0-0.2); Basophils % 0.5 % (0.1-2.0); Eosinophils # 0.6 K/mm3 (0.0-0.4); Eosinophils % 4.8 % (0.1-12.0); Hematocrit 27.5 % (37.0-47.0); Hemoglobin 8.7 g/dL (12.2-16.2); Lymphocytes # 2.2 K/mm3 (0.7-4.5); Lymphocytes % 16.6 % (10-50); Mean Corpuscular HGB Conc 31.6 g/dL (31.8-35.4); Mean Corpuscular Hemoglobin 28.1 pg (27.0-31.2); Mean Platelet Volume 9.3 fl (7.4-10.4); Monocytes # 0.5 K/mm3 (0.1-1.0); Monocytes % 3.8 % (1.7-9.3); Neutrophils # 9.8 K/mm3 (1.8-7.8); Neutrophils % 74.2 % (37.0-80.0); Platelet Count 121 K/mm3 (142-424); Red Blood Count 3.09 M/mm3 (4.20-5.40); Red Cell Distribution Width 15.8 % (11.5-17.5); White Blood Count 13.2 K/mm3 (4.8-10.8)
--- NOTE | 2022-11-12 09:29 | PC.NURSE ---
Levophed is currently infusing @ 9 mcg/min. Urine output total 1 ml since 0700. New DSGs placed to bottom and (L) inner thigh. (L) breast cleansed and ointment applied. Family called in due to decline.
--- NOTE | 2022-11-12 09:46 | DIET.NUTRFU ---
Spoke to nursing today, still unable to place NG tube for nutrition. Dr Beebe is planning on reviewing POC with family to determine if they still want to treat her aggressively. Will continue to follow
--- NOTE | 2022-11-12 09:54 | PC.NURSE ---
Levophed titrated to 10 mcg/min.
--- NOTE | 2022-11-12 10:15 | PC.NURSE ---
Spoke with a nurse shrink pit supervisor at [facility], requested medical records again.
[2022-11-12 11:48] LABS: POC Glucose,Bedside 118 (70-110)
--- NOTE | 2022-11-12 14:26 | P.EN_ITS ---
Advance care planning note: Active diagnosis: Renal Failure, HFpEF, ARDS, Type 1 respiratory failure The patient's active diagnoses are of sufficient risk that focused discussion on advanced care planning is indicated in order to allow the patient to thoughtfully consider personal goals of care; and, if situations arise that prevent the ability to personally give input, to ensure appropriate representation of their personal desires through documentation or informed surrogate decision makers. Discussion: Persons present and participating in discussion: Daughters Tori and Christina; patient's niece and granddaughter Discussion: Extensive discussion about patient's recent recurring hospitalizations and visits to the ER. Discussion included review of her underlying health conditi ons including diastolic CHF, SUDHEER necessitating CPAP nightly, wheelchair-bound status for the past 5 years, chronic kidney disease stage III/IV. Discussed patient's course since admission including respiratory failure, bacteremia, sepsis, JAYJAY on presentation with progressive worsening renal failure leading to an urea over the past 24 hours. Discussed patient's wishes having been expressed to her daughters that she did not want to be on life support. Discussed goals of care moving forward with either pursuing aggressive support necessitating intubation and transfer given renal failure versus proceeding with comfort measures in line with patient's wishes to not be on life support. Discussed patient's poor prognosis even in light of advancing with aggressive measures. Family decided to proceed with comfort measures and withdraw supportive care including CPAP and vasopressors. Time spent: Total time spent [id number] in education and discussion directly related to advance care plannin minutes Parviz Beebe MD 11/12/2022 13:45-14-20
--- NOTE | 2022-11-12 15:37 | EXP.DEATH.NO ---
Pronouncement Note Date and Time of Date of : 11/12/22 Time of : 15:28 PCOD Preliminary cause of : Renal failure Contributing Factors (1) Severe sepsis: (2) Bacteremia due to Streptococcus pneumoniae: (3) Acute kidney injury superimposed on CKD: (4) Acute respiratory failure with hypoxia: (5) Pneumonia: (6) Acute on chronic heart failure with preserved ejection fraction (HFpEF): (7) Abnormal transaminases: Summary Additional details: Initially presented respiratory failure secondary to human metapneumovirus pneumonia, was septic with strep bacteremia. Condition progressed to renal failure. Was on noninvasive respiratory support and norepinephrine for septic shock. Became an uric. Goals of care discussion with family, elected to withdraw care and proceed with further life support. CODE STATUS changed to DNR. Transition to comfort measures, withdrew CPAP and placed on oxygen. Discontinued norepinephrine. Patient passed peacefully surrounded by family over the next hour. Additional Data Confirmation of : no pulse, no respirations, no heart sounds and pupils fixed and dilated Family: at bedside Attending/PCP notified?: Yes Attending physician: Parviz Beebe MD Was code activated?: No Autopsy requested?: No merchandise examiner notified?: Yes Organ bank notified?: Yes Advance directives: No
--- NOTE | 2022-11-12 15:40 | PC.NURSE ---
Pt made DNR and placed on comfort care after speaking with . She was placed on 6L O2 NC and Levophed was DC per family request at 1500. O2 sats immediately declined. HR declined. TOD 1528. MD Beebe pronounced. Family has remained at bedside.
--- NOTE | 2022-11-12 15:41 | EXP.DC.SUM ---
General Admission date:: 11/04/22 Discharge date: 11/12/22 HPI HPI HPI: this is a 67-year-old female with a past medical history of GERD, CKD, CHF who presents to the emergency department today with complaints of shortness of breath. On arrival to the emergency department patient was noted to have oxygen saturations in the 70s on room air. She is not on oxygen at baseline. She endorses cough and shortness of breath over the last several days with acute increase today. She reports that she has had productive sputum but no fever. She reports poor p.o. intake in the setting of feeling generally unwell. She denies chest pain, palpitations, nausea, vomiting diarrhea. She does endorse being around sick children in the last week. She is COVID and flu negative. Patient was initially placed on Ventimask with persistent hypoxia and transitioned over to CPAP with improvement in oxygen saturations to the low 90s. Chest CT shows right greater than left pneumonitis. creatinine elevated to 2.0. Transaminitis noted. CT scan of abdomen negative acute. Leukocytosis noted with a white blood cell count of 19. ABG shows respiratory alkalosis with oxygen saturation of 89%. Lactate of 4.1, troponin negative, BNP is 7500. Given patient's above-mentioned complaints and laboratory evaluation, she will be admitted to the hospital service for further evaluation management. Hospital Course Hospital Course Hospital Course: This is a 67-year-old female that presents to [facility] emergency department with concerns of shortness of air.? Found to be in ARDS, severe sepsis, acute hypoxemic respiratory failure, and pneumonia along with JAYJAY and CHF exacerbation. Sepsis and pneumonia secondary to human metapneumovirus pneumonia and Streptococcus pneumonia bacteremia. Pulmonology was consulted and patient condition rapidly progressed to CPAP for respiratory support. Initiated on broad-spectrum antibiotics. Patient's condition gradually worsened with fluid resuscitation and worsening kidney failure. Over the 8-day course she developed renal failure and and urea over the last 24 to 48 hours. Respiratory support necessitating high PEEP noninvasive positive pressure ventilation to assist with oxygenation. Over the last 48 hours patient unfortunately developed hypotension necessitating norepinephrine. Given multiorgan failure goals of care discussion had with family in regard to neck steps with comfort measures versus aggressive measures including advancing life support to attempt further treatment for her worsening condition. After candid discussion, family decided to proceed with comfort measures. CPAP was withdrawn and transition to nasal cannula oxygen. Norepinephrine was discontinued. Patient was surrounded by family. within an hour of discontinuation of life support. Exam Data for Last 24 hours Vital signs and Labs for Last 24 Hours: Temp Pulse Resp BP Pulse Ox FiO2 99.3 F 85 19 75/40 L 93 L 55 11/12/22 12:00 11/12/22 15:00 11/12/22 14:00 11/12/22 15:00 11/12/22 14:00 11/12/22 13:00 Laboratory Results - last 24 hr 11/11/22 16:24: Lactate 4.8 H 11/11/22 18:33: Sodium 135 L, Potassium 3.4 L, Chloride 96 L, Carbon Dioxide 29, Anion Gap 13.4, BUN 62 H, Creatinine 3.30 H, Estimated Creat Clear 29, Estimated GFR 14 L*, Est GFR ( Amer) 17 L*, Glucose 122 H, Calcium 7.3 L 11/11/22 18:46: POC Glucose 127 H 11/11/22 21:09: POC Glucose 120 H 11/12/22 05:40: POC Glucose 120 H 11/12/22 06:10: Magnesium 1.9 11/12/22 06:10: Sodium 135 L, Potassium 3.5, Chloride 95 L, Carbon Dioxide 27, Anion Gap 16.5 H, BUN 64 H, Creatinine 3.60 H, Estimated Creat Clear 26, Estimated GFR 13 L*, Est GFR ( Amer) 15 L*, Glucose 107 H, Calcium 7.4 L, Total Bilirubin 0.7, AST 46 H, ALT 37, Alkaline Phosphatase 181 H, Total Protein 5.5 L, Albumin 2.2 L, Globulin 3.3 H, Albumin/Globulin Ratio 0.7 L 11/12/22 06:50: WBC 13.2 H, RBC 3.09 L,
--- NOTE | 2022-11-12 15:56 | PC.NURSE ---
Called HARRY @ [phone]. Placed on hold. At 1555, was directed to voicemail.
--- NOTE | 2022-11-12 16:00 | PC.NURSE ---
Called star again. Placed on hold then put to voicemail again.
--- NOTE | 2022-11-12 16:38 | PC.NURSE ---
No call back from [facility] at this time.
--- NOTE | 2022-11-12 16:45 | PC.NURSE ---
Manager [employer] notified of not able to get in touch with [facility]ARRY. guest service supervisor also called HARRY and was placed on hold then to voicemail. This nurse also called [facility]ARRY again. Placed on hold then put to voicemail.
--- NOTE | 2022-11-12 17:11 | PC.NURSE ---
[facility]ARRY was reached and notified. PT ruled out for donation. Coordinator was Abby Elder. Case # [id number]
--- NOTE | 2022-11-12 18:08 | PC.NURSE ---
Jose Dago [facility] notified for services. ETA 2 hrs.
--- NOTE | 2022-11-12 20:18 | PC.NURSE ---
home leaving at this time with pt
== END 2022-11-12 20:15 | disposition expired | DRG 871 ==
LOC: ER 19:21 → 2ND 19:35
PROVIDERS: Internal Medicine Adolescent Medicine; Internal Medicine Pulmonary Disease; Nurse Practitioner Acute Care; Admitting Provider Family Medicine; Emergency Provider Emergency Medicine; PCP Family Medicine; Visit Provider Family Medicine
DX: A40.9 Streptococcal sepsis, unspecified (principal); I50.33 Acute on chronic diastolic (congestive) heart failure; J12.3 Human metapneumovirus pneumonia; J80 Acute respiratory distress syndrome; N17.9 Acute kidney failure, unspecified; I13.0 Hypertensive heart and chronic kidney disease with heart failure and stage 1 through stage 4 chronic kidney disease, or unspecified chronic kidney disease; Z51.5 Encounter for palliative care; R65.20 Severe sepsis without septic shock; M19.90 Unspecified osteoarthritis, unspecified site; E03.9 Hypothyroidism, unspecified; E11.22 Type 2 diabetes mellitus with diabetic chronic kidney disease; N18.32 Chronic kidney disease, stage 3b; K21.9 Gastro-esophageal reflux disease without esophagitis; K44.9 Diaphragmatic hernia without obstruction or gangrene; R74.01 Elevation of levels of liver transaminase levels
CPT/HCPCS: 36410; 36415; 36569; 71045; 71250; 74176; 80048; 80053; 80061; 80074; 81001; 82803; 82962; 83036; 83605; 83615; 83690; 83735; 83880; 84100; 84145; 84439; 84443; 84484; 85007; 85025; 85651; 86140; 87040; 87070; 87077; 87086; 87088; 87186; 87205; 87581; 87632; 87641; 87798; 93005; 93306; 93308; 94640; 94660; 94760; 97162; 97166; 99291; C1751; C9803; J0456; J0696; J1956; J2020; J2543; U0003; U0005